=== PATIENT | female | born 1955 | race Caucasian/White ===

== ENCOUNTER 2017-07-08 02:50 | Inpatient (IN) | payer MEDICARE, MEDICAID ==
--- NOTE | 2017-07-08 03:19 | ED Physician Chart ---
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 Pain, A/N/V/D/C, fever, chills, or urinary s/s Allergies:: Allergies Allergy/AdvReac Type Severity Reaction Status Date / Time No Known Allergies Allergy Verified 07/08/17 03:09 Historian:: Patient, EMS Review:: Nurse's Note Reviewed, Old Chart Reviewed, EMS run form Reviewed ED Review of Systems - Review of Systems General/Constitutional: No fever, No chills, No weight loss, No weakness, No diaphoresis, No edema, No loss of appetite Skin: No skin lesions, No rash, No bruising Head: No headache, No light-headedness Eyes: No loss of vision, No pain, No diplopia ENT: No earache, No nasal drainage, No sore throat, No tinnitus Neck: No neck pain, No swelling, No thyromegaly, No stiffness, No mass noted Cardio Vascular: No chest pain, No palpitations, No PND, No orthopnea, No edema Pulmonary: No SOB, No cough, No sputum, No wheezing GI: No nausea, No vomiting, No diarrhea, No pain, No melena, No hematochezia, No constipation, No hematemesis G/U: No dysuria, No frequency, No hematuria, No nacturia 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: No vaginal discharge, No abnormal vaginal bleed, No contraction Musculoskeletal: Bone or joint pain, Back pain, No muscle pain Endocrine: No polyuria, No polydipsia Psychiatric: Prior psych history, Depression, Anxiety, No suicidal ideation, No homicidal ideation, Auditory hallucination, No visual hallucination Hematopoietic: No bruising, No lymphadenopathy Allergic/Immuno: No urticaria, No angioedema Neurological: No syncope, No focal symptoms, No weakness, No paresthesia, No headache, No seizure, No dizziness, Confusion, No vertigo ED Past Medical History - Past Medical History Obtainable: Yes Past Medical History: HTN, DM, CAD, Dyslipidemia, ESRD, Thyroid disorder, Arthritis, Dementia Family History: Diabetes Melitus, HTN Social History: Non Smoker, No Alcohol, No Drug Use, Single, Care Facility Surgical History: other (Shunt Left Upper Arm) Psychiatricy History: Depression, Schizophrenia, Bipolar, Dementia Medication: Reviewed Family Medical History - Family Member Mother History Unknown: Yes ED Physical Exam - Physical Examination General/Constitutional: Awake, Well-developed, well-nourished, Alert, No distress, GCS 15, Non-toxic appearing, Ambulatory Head: Atraumatic Eyes: Lids, conjuctiva normal, PERRL, EOMI Skin: Nl inspection, No rash, No skin lesions, No ecchymosis, Well hydrated, No lymphadenopathy ENMT: External ears, nose nl, TM canals nl, Nasal exam nl, Lips, teeth, gums nl , Oropharynx nl, Tonsils nl Neck: Nontender, Full ROM w/o pain, No JVD, No nuchal rigidity, No bruit, No mass, No stridor Respiratory: Nl effort/Exclusion, Clear to Auscultation, No Wheeze/Rhonchi/Rales Cardio Vascular: RRR, No murmur, gallop, rubs, NL S1 S2, Carotid/Femoral/Distal pulses equal bilaterally GI: No tenderness/rebounding/guarding, No organomegaly, No hernia, Normal BS's, Nondistended, No mass/bruits, No McBurney tenderness : No CVA tenderness Extremities: No tenderness or effusion, Full ROM, normal strength in all extremities, No edema, Normal digits & nails Neuro/Psych: Alert/oriented, DTR's symmetric, Normal sensory exam, Normal motor strength, Judgement/insight normal, Mood normal, Normal gait, No focal deficits Other Neuro/Psych comments:: disoriented and confused; + Hallucinations; Mood/Affect: Labile; no SIs Misc: Normal back, No paraspinal tenderness ED Labs/Radiology/EKG Results - Lab Results Comments:: + anemia; + Renal Failure; + Elevated BNP; BUN; Cr; - EKG Interpretations EKG Time:: 03:31 Rate & Rhythm: 79; NSR Comments:: non-specific st-t changes ED Septic Shock - . Is Septic Shock (SBP<90, OR Lactate>4 mmol\L) present?: No ED Reassessment (Disposition) - Reassessment Reassessment Condition:: Improved - Diagnosis Diagnosis:: Anemia; Renal Failure; CHF; Hallucinations; Psychosis; Medical Clearance; ESRD; Schizophrenia; Bipolar Disorder - Aftercare/Follow up Instructions Aftercare/Follow-Up Instructions:: Counseled pt regarding lab results/diagnosis & need follow up, Counseled pt & family regarding lab results/diagnosis & need follow up - Patient Disposition Discharge/Transfer:: Acute Care w/in this hosp Accepting Physician:: Dr. Shrestha Time Called:: 0430 Time Responded:: 04:30 Admitted to:: [facility] Spoke to:: Dr. Shrestha Admitting Medical Physician:: Dr. Shrestha Admitting Psych Physician:: Dr. Bai Condition at Disposition:: Stable, Improved
[2017-07-08 04:19] LABS: ACETAMINOPHEN < 10.0 ug/mL (10.0-30.0); ALB/GLOB RATIO 1.6 (1.0-1.8); ALKALINE PHOSPHATASE 147 U/L (34-104); ANION GAP 10.9 (7.0-16.0); BILIRUBIN,TOTAL 0.4 mg/dL (0.3-1.0); BUN - UREA NITROGEN 59 mg/dL (7-25); CALCIUM SERUM 9.5 mg/dL (8.6-10.3); CARBON DIOXIDE 28.6 mEq/L (21.0-31.0); CHLORIDE 102 mEq/L (98-107); CHOLESTEROL 109 mg/dL (<200); CREATININE KINASE 649 U/L (30-223); GFR AFRICAN-AMERICAN 11.5 ml/min (>90); GFR NON AFRICAN-AMERICAN 9.5 ml/min; GLUCOSE 217 mg/dL (70-105); HDL -HIGH DENSITY LIPOPROTEIN 49 mg/dL (23-92); POTASSIUM SERUM 4.5 mEq/L (3.5-5.1); SGOT 28 U/L (13-39); SGPT/ALT 12 U/L (7-52); SODIUM SERUM 137 mEq/L (136-145); TOTAL PROTEIN,SERUM 6.5 gm/dL (6.0-8.3); TRIGLYCERIDES 122 mg/dL (<150)
[2017-07-08 04:20] LABS: INR 0.97 (0.5-1.4); PROTHROMBIN TIME (TEST) 10.1 SECONDS (9.5-11.5)
[2017-07-08 04:36] LABS: % BASOPHILS 0.9 % (0.0-2.0); % EOSINOPHILS 1.1 % (0.0-5.0); % LYMPHOCYTES 16.8 % (20.0-50.0); % MONOCYTES 4.2 % (2.0-10.0); BASOPHILE ABSOLUTE 0.1 Th/cumm (0-0.2); EOSINOPHILE ABSOLUTE 0.1 Th/cmm (0.1-0.4); HEMATOCRIT 35.5 % (41.0-60); HEMOGLOBIN 11.9 gm/dL (12-16); LYMPHOCYTE ABSOLUTE 1.4 Th/cmm (1.5-3.0); MEAN CELL VOLUME 94.2 fl (81-100); MEAN CORPUSCULAR HEMOGLOBIN 31.5 pg (27.0-31.0); MEAN CORPUSCULAR HGB CONC 33.4 pg (28.0-36.0); MEAN PLATELET VOLUME 8.5 fl; MONOCYTE ABSOLUTE 0.4 Th/cmm (0.3-1.0); NEUTROPHILE ABSOLUTE 6.6 Th/cmm (1.8-8.0); PLATELET COUNT 200 Th/cmm (150-400); RED BLOOD COUNT 3.77 Mil/cmm (3.80-5.10); RED CELL DISTRIBUTION WIDTH 14.2 % (11.5-20.0); WHITE BLOOD COUNT 8.6 Th/cmm (4.8-10.8)
[2017-07-08] MEDS ORDERED: NITROGLYCERIN OINT 2% 1 INCH PACKET TP STA (06:50)
[2017-07-08] MEDS ORDERED: NITROGLYCERIN OINT 2% 1 INCH PACKET TP ONE (07:00)
[2017-07-08] MEDS ORDERED: Hydrocodone/APAP 5mg/325mg Tab PO PRN (10:47)
[2017-07-08] MEDS ORDERED: Non-Formulary Item 1 EA (Alprazolam [Xanax*] 1 MG) PO SCH (11:00)
[2017-07-08 11:27] LABS: CREATININE - SERUM 4.9 mg/dL (0.6-1.2)
[2017-07-08 12:08] LABS: SALICYLATES (ASPIRIN) < 25.0 mg/L (30.0-100.0)
[2017-07-08] MEDS ORDERED: [UNRECOGNIZED DRUG - OTHER] LEFT EYE SCH (14:00)
[2017-07-08] MEDS ORDERED: POLYMYXIN B SULF LEFT EYE SCH (14:00)
[2017-07-08] MEDS ORDERED: AMINO ACIDS PO SCH (14:00)
[2017-07-08] MEDS ORDERED: TRIMETHOPRIM LEFT EYE SCH (14:00)
[2017-07-08] MEDS ORDERED: FIBER PO SCH (14:00)
[2017-07-08] MEDS ORDERED: PROTEIN HYDR PO SCH (14:00)
[2017-07-08] MEDS ORDERED: [UNRECOGNIZED DRUG - OTHER] PO SCH (14:00)
[2017-07-08] MEDS: Escitalopram Oxalate 5 mg Tab PO SCH (14:34)
[2017-07-08] MEDS: Vitamin B Complex w/Vitamin C Tab PO SCH (14:35)
[2017-07-08] MEDS: NIFEdipine 30 mg ER Tab PO SCH (14:35)
[2017-07-08] MEDS: FERRIC CITRATE PO SCH ×2 (14:36→18:47)
[2017-07-08] MEDS: Non-Formulary Item 1 EA (Brinzolamide/Brimonidine Tart [Simbrinza 1%-0.2% Eye Drops] 1 DRO EACH EYE SCH ×2 (14:36→18:47)
[2017-07-08] MEDS: Prednisolone 1% Ophth Susp 5 mL Bottle LEFT EYE SCH ×2 (14:36→18:47)
[2017-07-08 15:57] LABS: A1C % 7.3 % (4.0-6.0)
--- NOTE | 2017-07-08 16:34 | Psychosocial Evaluation ---
DATE OF SERVICE: 07/08/2017 HISTORY OF PRESENT ILLNESS: A 62-year-old female with history of schizophrenia, also dementia per the daughter, daughter at bedside. Sandrine notes that she had been at halfway, , decompensated. The patient believes that she is being fed cocaine and methamphetamines and the facility is making her psychotic. The patient is bizarre, disoriented, making nonsensical statements, believes that she is in the hospital because she is going to be euthanized. PAST MEDICAL HISTORY: Schizophrenia, psychiatric hospitalizations in the past. FAMILY HISTORY: Noncontributory. SOCIAL HISTORY: Three daughters, not , born in [place], living at a halfway. MEDICATIONS: Noted including Seroquel. MENTAL STATUS EXAMINATION: Stated age. Fair eye contact. Speech within normal limits, bizarre, making nonsensical statements, disorganized, disoriented, delusional, psychotic. No SI, no HI, but believes she is here to be euthanized. Poor insight and judgment. PROVISIONAL DIAGNOSES: Schizophrenia, also dementia. UNDER MEDICAL: Please see full H and P. JUSTIFICATION FOR HOSPITALIZATION: The patient is hemodialysis dependent. Daughter is not quite sure what her dosages of Seroquel she was on, but not to nighttime dose. RECOMMENDATIONS AND PLAN: The patient is psychotic, delusional. We will restart Seroquel at nighttime to try to stabilize. JOB# [id number]
--- NOTE | 2017-07-08 16:44 | Diagnostic Imaging Report ---
CHEST X-RAY: AP view INDICATION: Hypertension COMPARISON: None FINDINGS: Increased interstitial lung markings are seen particularly of the lung bases. There is nonspecific prominence of the anterior junction line. Cardiomegaly is noted with atherosclerosis. No pleural effusions. Degenerative changes of the spine are noted. IMPRESSION: Increased interstitial lung markings. Atelectasis versus infiltrate of the lung bases cannot be excluded. There may be a marginal degree of congestion. Cardiomegaly and atherosclerotic vascular disease.
[2017-07-08] MEDS: INSULIN ASPART SLIDING SCALE 100 UNITS/ML UNIT SUBQ SCH (18:46)
--- NOTE | 2017-07-08 18:55 | Consultation ---
DATE OF CONSULTATION: 07/08/2017 REASON FOR CONSULTATION: Electrolyte imbalance and fluid management. HISTORY OF PRESENT ILLNESS: This is a 62-year-old female with past medical history of end-stage renal disease on hemodialysis, who came in because of acute decompensation of psychotic features. One week prior to admission, the patient's psychiatrist decreased her dose of Seroquel from twice a day to just once a day. A few hours prior to admission, the patient suddenly manifested psychosis. She became confused and started mumbling, with visual hallucinations. Thus, she was brought to the Emergency Room. The patient has history of end-stage renal disease, on hemodialysis. Her schedule is on Tuesdays, , and Saturdays. She has no headaches, fever/chills, dizziness, syncopal episode. No seizure activity. PAST MEDICAL HISTORY: 1. End-stage renal disease, on hemodialysis. 2. Essential hypertension. 3. Type 2 diabetes mellitus. 4. Dementia with behavioral disturbance. 5. DJD. 6. Hypothyroidism. 7. Coronary artery disease. 8. Schizophrenia. 9. Bipolar disorder. 10. Gout. 11. Dyslipidemia. PAST SURGICAL HISTORY: Status post creation of left AV fistula. SOCIAL AND FAMILY HISTORY: I was not able to obtain from the patient because she is awake, but just mumbling and unable to carry a conversation. REVIEW OF SYSTEMS: Again, I was not able to decipher directly from the patient because of her current psychotic features. PHYSICAL EXAMINATION: GENERAL: The patient is awake, but cooperative. VITAL SIGNS: Blood pressure is 170/77, pulse 84, temperature 98 degrees. SKIN: Good turgor, warm, no rash, no jaundice appreciated. HEENT: Head normocephalic, atraumatic. Eyes: Extraocular muscles intact. Pupils equal, round, reactive to light and accommodates. Anicteric sclerae. [place] conjunctivae. Nose, midline nasal septum. Mouth, moist mucosa with adequate dentition. NECK: Supple, no adenopathy, no thyromegaly, no bruits. Trachea palpated in the midline. CHEST AND CVS: S1, S2. No rub, murmur, or gallop appreciated. Point of maximal impulse fifth intercostal space, left midclavicular line. No abdominal or femoral bruits appreciated. LUNGS: Equal expansion. No use of accessory muscles or supraclavicular retractions. Decreased breath sounds, but clear to auscultation without any wheezes. BREASTS: Pendulous, symmetrical without any discharge. ABDOMEN: Obese, soft, positive for bowel sounds. No bruits either diastolic or systolic. RECTAL: The patient refused. GENITOURINARY: Normal appearing female genitalia. MUSCULOSKELETAL: No effusions present in her joints with adequate range of motion. EXTREMITIES: No evidence of any edema, cyanosis nor clubbing with palpable femoral, but unable to fully appreciate popliteal and dorsalis pedis pulses. She has a very good bruit and thrill on her left AV fistula. NEUROLOGIC: The patient is alert, verbal, motor is 5/5. Cranial nerves 2-12 intact. Sensory intact. LABORATORY DATA: Revealed white count 8.6, hemoglobin 11.9, hematocrit 35.5, platelets 200, polys 77%. PT is 10.1. INR is 0.97. Sodium 137, potassium 4.5, chloride 102, bicarbonate 28, BUN 59, creatinine 4.9, glucose 217, calcium 9.5. Alkaline phosphatase is 147. BNP is 383. Albumin is 4. IMPRESSION: 1. End-stage renal disease, on hemodialysis. 2. Acute decompensation of psychosis secondary to decrease in dosing of psychotropic meds. 3. Essential hypertension with chronic kidney disease. 4. Type 2 diabetes mellitus with chronic kidney disease. 5. Dementia with behavioral disturbance. 6. Degenerative joint disease. 7. Hypothyroidism. 8. Coronary artery disease. 9. Schizophrenia. 10. Bipolar disorder. 11. Gouty arthritis. 12. Dyslipidemia. PLAN: 1. Hemodialysis today. 2. Consider psych consult to readjust psychotropic meds. JOB# [id number]
[2017-07-08] MEDS ORDERED: Pneumococcal Vaccine 0.5 mL Vial IM ONE (20:12)
[2017-07-08] MEDS ORDERED: Influenza Vaccine 0.5 mL Syr IM ONE (20:12)
[2017-07-08] MEDS ORDERED: Non-Formulary Item 1 EA (Atorvastatin Calcium [Lipitor] 40 MG) PO SCH (21:00)
[2017-07-09] MEDS ORDERED: Albumin 25% 25gm/100mL 25 GM/100 ML BTL IV ONE
[2017-07-09 05:28] LABS: % BASOPHILS 0.9 % (0.0-2.0); % EOSINOPHILS 3.4 % (0.0-5.0); % LYMPHOCYTES 25.7 % (20.0-50.0); % MONOCYTES 8.4 % (2.0-10.0); % NEUTROPHILS 61.6 % (40.0-80.0); BASOPHILE ABSOLUTE 0.1 Th/cumm (0-0.2); EOSINOPHILE ABSOLUTE 0.3 Th/cmm (0.1-0.4); HEMATOCRIT 34.8 % (41.0-60); HEMOGLOBIN 11.4 gm/dL (12-16); MEAN CORPUSCULAR HEMOGLOBIN 30.7 pg (27.0-31.0); MEAN CORPUSCULAR HGB CONC 32.7 pg (28.0-36.0); MEAN PLATELET VOLUME 7.6 fl; MONOCYTE ABSOLUTE 0.7 Th/cmm (0.3-1.0); NEUTROPHILE ABSOLUTE 4.8 Th/cmm (1.8-8.0); PLATELET COUNT 218 Th/cmm (150-400); RED CELL DISTRIBUTION WIDTH 14.1 % (11.5-20.0); WHITE BLOOD COUNT 7.9 Th/cmm (4.8-10.8)
[2017-07-09 05:55] LABS: ANION GAP 8.9 (7.0-16.0); CALCIUM SERUM 8.9 mg/dL (8.6-10.3); CREATININE - SERUM 3.1 mg/dL (0.6-1.2); GFR AFRICAN-AMERICAN 19.5 ml/min (>90); GFR NON AFRICAN-AMERICAN 16.1 ml/min; MAGNESIUM 2.1 mg/dL (1.9-2.7); PHOSPHOROUS 3.3 mg/dL (2.5-5.0); POTASSIUM SERUM 3.9 mEq/L (3.5-5.1)
[2017-07-09] MEDS ORDERED: LEVOTHYROXINE 0.15 MG PO SCH (07:30)
[2017-07-09] MEDS: Vitamin B Complex w/Vitamin C Tab PO SCH (08:37)
[2017-07-09] MEDS: Escitalopram Oxalate 5 mg Tab PO SCH (08:37)
[2017-07-09] MEDS: NIFEdipine 30 mg ER Tab PO SCH ×3 (08:37→18:08)
[2017-07-09] MEDS: INSULIN ASPART SLIDING SCALE 100 UNITS/ML UNIT SUBQ SCH ×2 (08:39→18:06)
[2017-07-09] MEDS: Insulin Detemir 100 units/mL 10mL Vial SUBQ SCH (08:39)
[2017-07-09] MEDS: Levothyroxine 0.15 Mg Tab PO SCH (08:40)
[2017-07-09] MEDS: Prednisolone 1% Ophth Susp 5 mL Bottle LEFT EYE SCH ×2 (08:40→18:08)
[2017-07-09] MEDS ORDERED: VTE Chemical Prophylaxis Screen/Admission MC PRN (15:46)
--- NOTE | 2017-07-09 17:17 | General Progress Note ---
Subjective - Review of Systems Service Date: 07/09/17 Subjective: alert, but still has confusion Objective - Results Result Diagrams: 07/09/17 05:06 07/09/17 05:06 Recent Labs: Laboratory Last Values WBC 7.9 Th/cmm (4.8-10.8) 07/09/17 05:06 RBC 3.70 Mil/cmm (3.80-5.10) L 07/09/17 05:06 Hgb 11.4 gm/dL (12-16) L 07/09/17 05:06 Hct 34.8 % (41.0-60) L 07/09/17 05:06 MCV 94.0 fl (81-100) 07/09/17 05:06 MCH 30.7 pg (27.0-31.0) 07/09/17 05:06 MCHC Differential 32.7 pg (28.0-36.0) 07/09/17 05:06 RDW 14.1 % (11.5-20.0) 07/09/17 05:06 Plt Count 218 Th/cmm (150-400) 07/09/17 05:06 MPV 7.6 fl 07/09/17 05:06 Neutrophils % 61.6 % (40.0-80.0) 07/09/17 05:06 Lymphocytes % 25.7 % (20.0-50.0) 07/09/17 05:06 Monocytes % 8.4 % (2.0-10.0) 07/09/17 05:06 Eosinophils % 3.4 % (0.0-5.0) 07/09/17 05:06 Basophils % 0.9 % (0.0-2.0) 07/09/17 05:06 PT 10.1 SECONDS (9.5-11.5) 07/08/17 03:45 INR 0.97 (0.5-1.4) 07/08/17 03:45 Sodium 135 mEq/L (136-145) L 07/09/17 05:06 Potassium 3.9 mEq/L (3.5-5.1) 07/09/17 05:06 Chloride 98 mEq/L (98-107) 07/09/17 05:06 Carbon Dioxide 32.0 mEq/L (21.0-31.0) H 07/09/17 05:06 Anion Gap 8.9 (7.0-16.0) 07/09/17 05:06 BUN 26 mg/dL (7-25) H 07/09/17 05:06 Creatinine 3.1 mg/dL (0.6-1.2) H 07/09/17 05:06 Est GFR ( Amer) 19.5 ml/min (>90) 07/09/17 05:06 Est GFR (Non-Af Amer) 16.1 ml/min 07/09/17 05:06 BUN/Creatinine Ratio 8.4 07/09/17 05:06 Glucose 200 mg/dL (70-105) H 07/09/17 05:06 POC Glucose 114 MG/DL (70 - 105) H 07/09/17 16:58 Hemoglobin A1c % 7.3 % (4.0-6.0) H 07/08/17 03:45 Calcium 8.9 mg/dL (8.6-10.3) 07/09/17 05:06 Phosphorus 3.3 mg/dL (2.5-5.0) 07/09/17 05:06 Magnesium 2.1 mg/dL (1.9-2.7) 07/09/17 05:06 Total Bilirubin 0.4 mg/dL (0.3-1.0) 07/08/17 03:45 AST 28 U/L (13-39) 07/08/17 03:45 ALT 12 U/L (7-52) 07/08/17 03:45 Alkaline Phosphatase 147 U/L (34-104) H 07/08/17 03:45 Ammonia 45 umol/L (16-53) 07/08/17 03:45 Creatine Kinase 649 U/L (30-223) H 07/08/17 03:45 CK-MB (CK-2) 11.8 ng/mL (0.6-6.3) H 07/08/17 03:45 Troponin I 0.03 ng/mL (0.01-0.05) 07/08/17 03:45 B-Natriuretic Peptide 383.0 pg/mL (5.0-100.0) H 07/08/17 03:45 Total Protein 6.5 gm/dL (6.0-8.3) 07/08/17 03:45 Albumin 4.0 gm/dL (3.7-5.3) 07/08/17 03:45 Globulin 2.5 gm/dL 07/08/17 03:45 Albumin/Globulin Ratio 1.6 (1.0-1.8) 07/08/17 03:45 Triglycerides 122 mg/dL (<150) 07/08/17 03:45 Cholesterol 109 mg/dL (<200) 07/08/17 03:45 LDL Cholesterol Direct 37 mg/dL (75-193) L 07/08/17 03:45 HDL Cholesterol 49 mg/dL (23-92) 07/08/17 03:45 TSH 3.27 uIU/ml (0.34-5.60) 07/08/17 03:45 Salicylates < 25.0 mg/L (30.0-100.0) L 07/08/17 03:45 Acetaminophen < 10.0 ug/mL (10.0-30.0) L 07/08/17 03:45 Ethyl Alcohol < 10 mg/dL (0-10) 07/08/17 03:45 RPR NONREACTIVE (NONREACTIVE) 07/08/17 03:45 - Physical Exam Vitals and I&O: Vital Signs Temp 97.2 F 07/09/17 12:30 Pulse 68 07/09/17 12:30 Resp 18 07/09/17 16:00 BP 150/73 07/09/17 12:30 Pulse Ox 95 07/09/17 12:30 Intake & Output 07/08/17 07/09/17 07/09/17 18:59 06:59 18:59 Intake Total 480 Balance 480 Weight (lbs) 86.636 kg 86.863 kg 86.636 kg Intake: Oral 480 Other: # Voids 2 2 2 Active Medications: Current Medications Acetaminophen (Tylenol) 650 mg PO Q4HR PRN PRN Reason: Pain (Mild) Stop: 09/06/17 10:46 Acetaminophen/Hydrocodone Bitart ([place] 5mg/325mg) 1 tab PO Q6H PRN PRN Reason: Pain (Severe) Stop: 09/06/17 10:46 Allopurinol (Zyloprim) 100 mg PO TID SALOMÓN Stop: 09/06/17 13:59 Last Admin: 07/09/17 14:25 Dose: 100 mg Alprazolam (Xanax) 1 mg PO DAILY SALOM[facility]N Stop: 09/07/17 08:59 Last Admin: 07/09/17 08:36 Dose: 1 mg Aspirin (Ecotrin) 81 mg PO DAILY SALOM[facility]N Stop: 09/06/17 10:59 Last Admin: 07/09/17 08:37 Dose: 81 mg Atorvastatin Calcium (Lipitor) 40 mg PO HS SALOMÓN Stop: 09/06/17 20:59 Last Admin: 07/08/17 21:01 Dose: 40 mg Brimonidine Tartrate (Alphagan 0.2% [facility]) 1 drop EACH EYE Q12HR SALOMÓN Stop: 09/07/17 08:59 Last Admin: 07/09/17 10:52 Dose: 1 drop Docusate Sodium (Colace) 100 mg PO DAILY SALOMÓN Stop: 09/06/17 10:59 Last Admin: 07/09/17 08:38 Dose: 100 mg Dorzolamide HCl (Trusopt 2% [facility]) 1 drop EACH EYE Q12H [facility]OM[facility] Stop: 09/07/17 08:59 Last Admin: 07/09/17 10:52 Dose: 1 drop Escitalopram Oxalate (Lexapro) 5 mg PO DAILY [facility] PRN Reason: Protocol Stop: 09/06/17 10:59 Last Admin: 07/09/17 08:37 Dose: 5 mg Folic Acid (Folate) 1 mg PO DAILY SALOMÓN Stop: 09/06/17 10:59 Last Admin: 07/09/17 08:38 Dose: 1 mg Heparin Sodium (Porcine) (Heparin) 5,000 units SUBQ Q12H [facility]OM[facility] Stop: 09/07/17 20:59 Insulin Aspart (Novolog Insulin Sliding Scale) 0 units SUBQ BIDAC [facility] PRN Reason: Protocol Stop: 09/06/17 16:29 Last Admin: 07/09/17 08:39 Dose: 4 units Insulin Detemir (Levemir Insulin) 24 units SUBQ QAM [facility] PRN Reason: Protocol Stop: 09/07/17 08:59 Last Admin: 07/09/17 08:39 Dose: 24 units Levothyroxine Sodium (Synthroid) 0.15 mg PO DAILY [facility] Stop: 09/07/17 08:59 Last Admin: 07/09/17 08:40 Dose: Not Given Metoprolol Tartrate (Lopressor) 50 mg PO BID [facility] Stop: 09/06/17 10:59 Last Admin: 07/09/17 08:38 Dose: 50 mg Miscellaneous (Vte Chemical Prophylaxis Screen/ Admission) 1 ea [facility] PRN PRN PRN Reason: PROTOCOL Stop: 09/07/17 15:45 Nifedipine (Procardia Xl) 30 mg PO BID [facility]OM[facility] Stop: 09/07/17 08:59 Last Admin: 07/09/17 08:40 Dose: 30 mg Prednisolone Acetate (Pred Forte 1% Ophth Susp) 1 drop LEFT EYE BID [facility]OM[facility] Stop: 09/06/17 10:59 Last Admin: 07/09/17 08:40 Dose: 1 drop Quetiapine Fumarate (Seroquel) 12.5 mg PO DAILY [facility] PRN Reason: Protocol Stop: 09/06/17 10:59 Last Admin: 07/09/17 08:38 Dose: 12.5 mg Quetiapine Fumarate (Seroquel) 37.5 mg PO HS [facility] PRN Reason: Protocol Stop: 09/07/17 11:10 Sevelamer Carbonate (Renvela) 1,600 mg PO TID [facility] Stop: 09/06/17 13:59 Last Admin: 07/09/17 14:25 Dose: 1,600 mg Sodium Bicarbonate (Sodium Bicarbonate) 650 mg PO BID [facility] PRN Reason: Protocol Stop: 09/06/17 10:59 Last Admin: 07/09/17 08:36 Dose: 650 mg Vitamin B Complex/Vit C/Folic Acid (Vitamin B Complex W/Vitamin C) 1 tab PO DAILY [facility] Stop: 09/06/17 10:59 Last Admin: 07/09/17 08:37 Dose: 1 tab General: No acute distress, Other (awake) HEENT: Atraumatic, EOMI Neck: Supple, +2 carotid pulse wo bruit Cardiovascular: Regular rate, Normal S1, Normal S2 Lungs: Clear to auscultation Abdomen: Bowel sounds, Soft Extremities: no Edema Neurological: Sensation intact Skin: no Rash Psych/Mental Status: Other (psychosis) Assessment/Plan - Assessment Assessment: ESRD on HD Acute decomp of psych Ess Htn Type 2 DM DJD Hypothyroid CAD - Plan Plan: Lab - Result Diagrams 07/09/17 05:06 07/09/17 05:06 Current Medications Acetaminophen (Tylenol) 650 mg PO Q4HR PRN PRN Reason: Pain (Mild) Stop: 09/06/17 10:46 Acetaminophen/Hydrocodone Bitart ([place] 5mg/325mg) 1 tab PO Q6H PRN PRN Reason: Pain (Severe) Stop: 09/06/17 10:46 Allopurinol (Zyloprim) 100 mg PO TID [facility] Stop: 09/06/17 13:59 Last Admin: 07/09/17 14:25 Dose: 100 mg Alprazolam (Xanax) 1 mg PO DAILY [facility] Stop: 09/07/17 08:59 Last Admin: 07/09/17 08:36 Dose: 1 mg Aspirin (Ecotrin) 81 mg PO DAILY [facility] Stop: 09/06/17 10:59 Last Admin: 07/09/17 08:37 Dose: 81 mg Atorvastatin Calcium (Lipitor) 40 mg PO HS [facility] Stop: 09/06/17 20:59 Last Admin: 07/08/17 21:01 Dose: 40 mg Brimonidine Tartrate (Alphagan 0.2% Ophth Soln) 1 drop EACH EYE Q12HR [facility] Stop: 09/07/17 08:59 Last Admin: 07/09/17 10:52 Dose: 1 drop Docusate Sodium (Colace) 100 mg PO DAILY [facility] Stop: 09/06/17 10:59 Last Admin: 07/09/17 08:38 Dose: 100 mg Dorzolamide HCl (Trusopt 2% Ophth Soln) 1 drop EACH EYE Q12H [facility] Stop: 09/07/17 08:59 Last Admin: 07/09/17 10:52 Dose: 1 drop Escitalopram Oxalate (Lexapro) 5 mg PO DAILY [facility] PRN Reason: Protocol Stop: 09/06/17 10:59 Last Admin: 07/09/17 08:37 Dose: 5 mg Folic Acid (Folate) 1 mg PO DAILY [facility] Stop: 09/06/17 10:59 Last Admin: 07/09/17 08:38 Dose: 1 mg Heparin Sodium (Porcine) (Heparin) 5,000 units SUBQ Q12H [facility] Stop: 09/07/17 20:59 Insulin Aspart (Novolog Insulin Sliding Scale) 0 units SUBQ BIDAC [facility] PRN Reason: Protocol Stop: 09/06/17 16:29 Last Admin: 07/09/17 08:39 Dose: 4 units Insulin Detemir (Levemir Insulin) 24 units SUBQ QAM [facility] PRN Reason: Protocol Stop: 09/07/17 08:59 Last Admin: 07/09/17 08:39 Dose: 24 units Levothyroxine Sodium (Synthroid) 0.15 mg PO DAILY [facility] Stop: 09/07/17 08:59 Last Admin: 07/09/17 08:40 Dose: Not Given Metoprolol Tartrate (Lopressor) 50 mg PO BID [facility] Stop: 09/06/17 10:59 Last Admin: 07/09/17 08:38 Dose: 50 mg Miscellaneous (Vte Chemical Prophylaxis Screen/ Admission) 1 ea [facility] PRN PRN PRN Reason: PROTOCOL Stop: 09/07/17 15:45 Nifedipine (Procardia Xl) 30 mg PO BID [facility] Stop: 09/07/17 08:59 Last Admin: 07/09/17 08:40 Dose: 30 mg Prednisolone Acetate (Pred Forte 1% Ophth Susp) 1 drop LEFT EYE BID [facility] Stop: 09/06/17 10:59 Last Admin: 07/09/17 08:40 Dose: 1 drop Quetiapine Fumarate (Seroquel) 12.5 mg PO DAILY [facility] PRN Reason: Protocol Stop: 09/06/17 10:59 Last Admin: 07/09/17 08:38 Dose: 12.5 mg Quetiapine Fumarate (Seroquel) 37.5 mg PO HS [facility] PRN Reason: Protocol Stop: 09/07/17 11:10 Sevelamer Carbonate (Renvela) 1,600 mg PO TID [facility] Stop: 09/06/17 13:59 Last Admin: 07/09/17 14:25 Dose: 1,600 mg Sodium Bicarbonate (Sodium Bicarbonate) 650 mg PO BID [facility] PRN Reason: Protocol Stop: 09/06/17 10:59 Last Admin: 07/09/17 08:36 Dose: 650 mg Vitamin B Complex/Vit C/Folic Acid (Vitamin B Complex W/Vitamin C) 1 tab PO DAILY [facility] Stop: 09/06/17 10:59 Last Admin: 07/09/17 08:37 Dose: 1 tab Lab - Result Diagrams 07/09/17 05:06 07/09/17 05:06 schedule for dialysis in am adjust psych meds
--- NOTE | 2017-07-09 19:37 | Consultation ---
DATE OF CONSULTATION: 07/09/2017 A 63-year-old female with history of schizophrenia, confirmed by daughter. Also, with dementia per the daughter. The patient is calmer today. She was claiming she was being forced fed cocaine and methamphetamine at her intermediate facility. This was after a gradual dose reduction of Seroquel. She presented as bizarre, disoriented, believing that she was going to be euthanized here. On [id number], the patient is answering the questions on all of these thoughts and delusions. When I asked her if she feels if the facility has been trying to poison her or give her cocaine, she states "well, I don't know, maybe." The patient seems to be quite sensitive to antipsychotic medications in regards to needing at least a small dose of Seroquel to tamper down her mood given her history of mental illness per the daughter. The patient noting that she is in better spirits. She slept well, answering questions more appropriately and significantly calmer. MENTAL STATUS EXAMINATION: Stated age. Sleeping, but arousable better oriented. Mood "better." Affect somewhat broader. Thought processes were more engaged, no SI, no HI. delusions, better insight and judgment. PROVISIONAL DIAGNOSIS: Schizophrenia, also mood, unspecified. MEDICAL: Please see full H and P. RECOMMENDATIONS AND PLAN: The patient with ongoing psychotic symptoms. We will increase Seroquel. The patient does seem to be making an improvement. JOB# [id number]
[2017-07-10 08:07] LABS: % BASOPHILS 0.7 % (0.0-2.0); % EOSINOPHILS 6.8 % (0.0-5.0); % LYMPHOCYTES 33.1 % (20.0-50.0); % MONOCYTES 10.8 % (2.0-10.0); % NEUTROPHILS 48.6 % (40.0-80.0); BASOPHILE ABSOLUTE 0.1 Th/cumm (0-0.2); EOSINOPHILE ABSOLUTE 0.6 Th/cmm (0.1-0.4); HEMATOCRIT 34.8 % (41.0-60); HEMOGLOBIN 11.7 gm/dL (12-16); LYMPHOCYTE ABSOLUTE 2.8 Th/cmm (1.5-3.0); MEAN CELL VOLUME 94.1 fl (81-100); MEAN CORPUSCULAR HEMOGLOBIN 31.8 pg (27.0-31.0); MEAN CORPUSCULAR HGB CONC 33.7 pg (28.0-36.0); MEAN PLATELET VOLUME 7.6 fl; MONOCYTE ABSOLUTE 0.9 Th/cmm (0.3-1.0); NEUTROPHILE ABSOLUTE 4.2 Th/cmm (1.8-8.0); PLATELET COUNT 231 Th/cmm (150-400); WHITE BLOOD COUNT 8.6 Th/cmm (4.8-10.8)
[2017-07-10 08:25] LABS: ANION GAP 9.1 (7.0-16.0); CALCIUM SERUM 8.5 mg/dL (8.6-10.3); CARBON DIOXIDE 29.1 mEq/L (21.0-31.0); GFR AFRICAN-AMERICAN 11.7 ml/min (>90); GFR NON AFRICAN-AMERICAN 9.7 ml/min; MAGNESIUM 2.4 mg/dL (1.9-2.7); POTASSIUM SERUM 4.2 mEq/L (3.5-5.1); URIC ACID 3.3 mg/dL (2.3-6.6)
[2017-07-10 08:31] LABS: CREATININE - SERUM 4.8 mg/dL (0.6-1.2)
--- NOTE | 2017-07-10 09:06 | Diagnostic Imaging Report ---
CHEST X-RAY: AP view INDICATION: Pneumonia COMPARISON: 07/08/2017 FINDINGS: Increase bibasal lung markings are noted. There is improved lung aeration. No focal consolidation or effusions. Cardiomegaly is noted. IMPRESSION: Increased bibasilar lung markings which may be due to atelectasis versus less likely infiltrate. Correlation should be made with clinical findings. Improved lung aeration.
[2017-07-10] MEDS: Prednisolone 1% Ophth Susp 5 mL Bottle LEFT EYE SCH ×2 (09:37→16:59)
[2017-07-10] MEDS: Vitamin B Complex w/Vitamin C Tab PO SCH (09:39)
[2017-07-10] MEDS: Escitalopram Oxalate 5 mg Tab PO SCH (09:39)
[2017-07-10] MEDS: INSULIN ASPART SLIDING SCALE 100 UNITS/ML UNIT SUBQ SCH ×2 (09:43→18:09)
[2017-07-10] MEDS: Insulin Detemir 100 units/mL 10mL Vial SUBQ SCH (09:44)
[2017-07-10] MEDS: NIFEdipine 30 mg ER Tab PO SCH ×2 (10:01→16:58)
[2017-07-10] MEDS: Levothyroxine 0.15 Mg Tab PO SCH (10:02)
[2017-07-11 06:13] LABS: % BASOPHILS 0.8 % (0.0-2.0); % EOSINOPHILS 6.9 % (0.0-5.0); % LYMPHOCYTES 34.2 % (20.0-50.0); % MONOCYTES 8.8 % (2.0-10.0); % NEUTROPHILS 49.3 % (40.0-80.0); BASOPHILE ABSOLUTE 0.1 Th/cumm (0-0.2); EOSINOPHILE ABSOLUTE 0.7 Th/cmm (0.1-0.4); HEMATOCRIT 36.9 % (41.0-60); HEMOGLOBIN 12.3 gm/dL (12-16); LYMPHOCYTE ABSOLUTE 3.3 Th/cmm (1.5-3.0); MEAN CELL VOLUME 94.3 fl (81-100); MEAN CORPUSCULAR HEMOGLOBIN 31.5 pg (27.0-31.0); MEAN CORPUSCULAR HGB CONC 33.4 pg (28.0-36.0); MEAN PLATELET VOLUME 8.1 fl; MONOCYTE ABSOLUTE 0.8 Th/cmm (0.3-1.0); NEUTROPHILE ABSOLUTE 4.7 Th/cmm (1.8-8.0); PLATELET COUNT 239 Th/cmm (150-400); RED BLOOD COUNT 3.91 Mil/cmm (3.80-5.10); RED CELL DISTRIBUTION WIDTH 13.9 % (11.5-20.0); WHITE BLOOD COUNT 9.6 Th/cmm (4.8-10.8)
[2017-07-11 06:31] LABS: ALB/GLOB RATIO 1.6 (1.0-1.8); ALBUMIN 3.6 gm/dL (3.7-5.3); ANION GAP 11.3 (7.0-16.0); BILIRUBIN,TOTAL 0.4 mg/dL (0.3-1.0); CALCIUM SERUM 8.7 mg/dL (8.6-10.3); CARBON DIOXIDE 27.7 mEq/L (21.0-31.0); CREATININE - SERUM 3.9 mg/dL (0.6-1.2); GFR AFRICAN-AMERICAN 14.9 ml/min (>90); GFR NON AFRICAN-AMERICAN 12.3 ml/min; TOTAL PROTEIN,SERUM 5.8 gm/dL (6.0-8.3)
[2017-07-11] MEDS: INSULIN ASPART SLIDING SCALE 100 UNITS/ML UNIT SUBQ SCH ×2 (06:59→17:26)
[2017-07-11] MEDS: Insulin Detemir 100 units/mL 10mL Vial SUBQ SCH (09:27)
[2017-07-11] MEDS: Vitamin B Complex w/Vitamin C Tab PO SCH (09:29)
[2017-07-11] MEDS: NIFEdipine 30 mg ER Tab PO SCH ×2 (09:29→17:25)
[2017-07-11] MEDS: Escitalopram Oxalate 5 mg Tab PO SCH (09:29)
[2017-07-11] MEDS: Prednisolone 1% Ophth Susp 5 mL Bottle LEFT EYE SCH ×2 (09:30→17:26)
[2017-07-12 05:09] LABS: % EOSINOPHILS 6.2 % (0.0-5.0); % LYMPHOCYTES 30.5 % (20.0-50.0); % MONOCYTES 11.3 % (2.0-10.0); BASOPHILE ABSOLUTE 0.1 Th/cumm (0-0.2); EOSINOPHILE ABSOLUTE 0.6 Th/cmm (0.1-0.4); HEMATOCRIT 34.7 % (41.0-60); HEMOGLOBIN 11.3 gm/dL (12-16); LYMPHOCYTE ABSOLUTE 2.7 Th/cmm (1.5-3.0); MEAN CELL VOLUME 94.8 fl (81-100); MEAN CORPUSCULAR HGB CONC 32.7 pg (28.0-36.0); MEAN PLATELET VOLUME 7.8 fl; NEUTROPHILE ABSOLUTE 4.6 Th/cmm (1.8-8.0); PLATELET COUNT 227 Th/cmm (150-400); RED BLOOD COUNT 3.66 Mil/cmm (3.80-5.10); RED CELL DISTRIBUTION WIDTH 13.7 % (11.5-20.0)
[2017-07-12 05:28] LABS: ALB/GLOB RATIO 1.5 (1.0-1.8); ALBUMIN 3.4 gm/dL (3.7-5.3); ANION GAP 12.3 (7.0-16.0); BILIRUBIN,TOTAL 0.4 mg/dL (0.3-1.0); CALCIUM SERUM 8.6 mg/dL (8.6-10.3); CARBON DIOXIDE 26.8 mEq/L (21.0-31.0); GFR AFRICAN-AMERICAN 10.5 ml/min (>90); GFR NON AFRICAN-AMERICAN 8.7 ml/min; POTASSIUM SERUM 4.1 mEq/L (3.5-5.1); TOTAL PROTEIN,SERUM 5.7 gm/dL (6.0-8.3)
[2017-07-12 05:44] LABS: CREATININE - SERUM 5.3 mg/dL (0.6-1.2)
[2017-07-12] MEDS: INSULIN ASPART SLIDING SCALE 100 UNITS/ML UNIT SUBQ SCH (07:37)
[2017-07-12] MEDS: Vitamin B Complex w/Vitamin C Tab PO SCH (08:47)
[2017-07-12] MEDS: Escitalopram Oxalate 5 mg Tab PO SCH (08:48)
[2017-07-12] MEDS: Insulin Detemir 100 units/mL 10mL Vial SUBQ SCH (08:51)
[2017-07-12] MEDS: Prednisolone 1% Ophth Susp 5 mL Bottle LEFT EYE SCH (10:02)
[2017-07-12] MEDS: NIFEdipine 30 mg ER Tab PO SCH (12:10)
--- NOTE | 2017-07-12 12:32 | Diagnostic Imaging Report ---
Head CT without intravenous contrast Indication: Loss of vision in right eye Comparison: None Technique: Axial images were obtained from the vertex to the skull base without IV contrast. Coronal reconstructions were made. Total DLP: 604, CTDI31.4 FINDINGS: Images of the brain obtained without contrast demonstrate no evidence of an acute hemorrhage. Atrophy is noted. Mild white matter disease is noted. The ventricles and basal cisterns are patent. No mass effect or midline shift. No evidence of a skull fracture or focal soft tissue swelling. There is high density within the left globe. IMPRESSION: No evidence of acute intracranial hemorrhage Mild supratentorial white matter disease which is nonspecific and may be due to chronic microvessel ischemia. Atrophy. High density within the left globe which may be due to previous silicone injection procedure. Other mass lesions or hemorrhage is cannot be excluded, please correlate clinically Given loss of vision in the right eye, ophthalmology consultation may be considered.
--- NOTE | 2017-07-12 13:39 | General Progress Note ---
Subjective - Review of Systems Service Date: 07/12/17 Subjective: alert, but still has confusion Objective - Results Result Diagrams: 07/12/17 04:45 07/12/17 04:45 Recent Labs: Laboratory Last Values WBC 9.0 Th/cmm (4.8-10.8) 07/12/17 04:45 RBC 3.66 Mil/cmm (3.80-5.10) L 07/12/17 04:45 Hgb 11.3 gm/dL (12-16) L 07/12/17 04:45 Hct 34.7 % (41.0-60) L 07/12/17 04:45 MCV 94.8 fl (81-100) 07/12/17 04:45 MCH 31.0 pg (27.0-31.0) 07/12/17 04:45 MCHC Differential 32.7 pg (28.0-36.0) 07/12/17 04:45 RDW 13.7 % (11.5-20.0) 07/12/17 04:45 Plt Count 227 Th/cmm (150-400) 07/12/17 04:45 MPV 7.8 fl 07/12/17 04:45 Neutrophils % 51.0 % (40.0-80.0) 07/12/17 04:45 Lymphocytes % 30.5 % (20.0-50.0) 07/12/17 04:45 Monocytes % 11.3 % (2.0-10.0) H 07/12/17 04:45 Eosinophils % 6.2 % (0.0-5.0) H 07/12/17 04:45 Basophils % 1.0 % (0.0-2.0) 07/12/17 04:45 PT 10.1 SECONDS (9.5-11.5) 07/08/17 03:45 INR 0.97 (0.5-1.4) 07/08/17 03:45 Sodium 136 mEq/L (136-145) 07/12/17 04:45 Potassium 4.1 mEq/L (3.5-5.1) 07/12/17 04:45 Chloride 101 mEq/L (98-107) 07/12/17 04:45 Carbon Dioxide 26.8 mEq/L (21.0-31.0) 07/12/17 04:45 Anion Gap 12.3 (7.0-16.0) 07/12/17 04:45 BUN 70 mg/dL (7-25) H 07/12/17 04:45 Creatinine 5.3 mg/dL (0.6-1.2) H* 07/12/17 04:45 Est GFR ( Amer) 10.5 ml/min (>90) 07/12/17 04:45 Est GFR (Non-Af Amer) 8.7 ml/min 07/12/17 04:45 BUN/Creatinine Ratio 13.2 07/12/17 04:45 Glucose 144 mg/dL (70-105) H 07/12/17 04:45 POC Glucose 193 MG/DL (70 - 105) H 07/12/17 12:13 Hemoglobin A1c % 7.3 % (4.0-6.0) H 07/08/17 03:45 Uric Acid 3.3 mg/dL (2.3-6.6) 07/10/17 07:57 Calcium 8.6 mg/dL (8.6-10.3) 07/12/17 04:45 Phosphorus 3.3 mg/dL (2.5-5.0) 07/09/17 05:06 Magnesium 2.4 mg/dL (1.9-2.7) 07/10/17 07:57 Total Bilirubin 0.4 mg/dL (0.3-1.0) 07/12/17 04:45 AST 18 U/L (13-39) 07/12/17 04:45 ALT 12 U/L (7-52) 07/12/17 04:45 Alkaline Phosphatase 111 U/L (34-104) H 07/12/17 04:45 Ammonia 45 umol/L (16-53) 07/08/17 03:45 Creatine Kinase 649 U/L (30-223) H 07/08/17 03:45 CK-MB (CK-2) 11.8 ng/mL (0.6-6.3) H 07/08/17 03:45 Troponin I 0.03 ng/mL (0.01-0.05) 07/08/17 03:45 B-Natriuretic Peptide 383.0 pg/mL (5.0-100.0) H 07/08/17 03:45 Total Protein 5.7 gm/dL (6.0-8.3) L 07/12/17 04:45 Albumin 3.4 gm/dL (3.7-5.3) L 07/12/17 04:45 Globulin 2.3 gm/dL 07/12/17 04:45 Albumin/Globulin Ratio 1.5 (1.0-1.8) 07/12/17 04:45 Triglycerides 122 mg/dL (<150) 07/08/17 03:45 Cholesterol 109 mg/dL (<200) 07/08/17 03:45 LDL Cholesterol Direct 37 mg/dL (75-193) L 07/08/17 03:45 HDL Cholesterol 49 mg/dL (23-92) 07/08/17 03:45 TSH 3.27 uIU/ml (0.34-5.60) 07/08/17 03:45 Salicylates < 25.0 mg/L (30.0-100.0) L 07/08/17 03:45 Acetaminophen < 10.0 ug/mL (10.0-30.0) L 07/08/17 03:45 Ethyl Alcohol < 10 mg/dL (0-10) 07/08/17 03:45 RPR NONREACTIVE (NONREACTIVE) 07/08/17 03:45 - Physical Exam Vitals and I&O: Vital Signs Temp 97.5 F 07/12/17 11:41 Pulse 72 07/12/17 12:10 Resp 19 07/12/17 11:41 BP 141/62 07/12/17 12:10 Pulse Ox 97 07/12/17 11:41 Intake & Output 07/11/17 07/12/17 07/12/17 18:59 06:59 18:59 Intake Total 1000 Balance 1000 Weight (lbs) 87.317 kg 88.496 kg Intake: Oral 1000 Other: # Voids 1 # Bowel Movements 0 Active Medications: Current Medications Acetaminophen (Tylenol) 650 mg PO Q4HR PRN PRN Reason: Pain (Mild) Stop: 09/06/17 10:46 Last Admin: 07/09/17 22:11 Dose: 650 mg Acetaminophen/Hydrocodone Bitart ([place] 5mg/325mg) 1 tab PO Q6H PRN PRN Reason: Pain (Severe) Stop: 09/06/17 10:46 Last Admin: 07/09/17 19:51 Dose: 1 tab Allopurinol (Zyloprim) 100 mg PO TID SALOMÓN Stop: 09/06/17 13:59 Last Admin: 07/12/17 08:50 Dose: 100 mg Alprazolam (Xanax) 1 mg PO DAILY SALOMÓN Stop: 09/07/17 08:59 Last Admin: 07/12/17 08:49 Dose: 1 mg Aspirin (Ecotrin) 81 mg PO DAILY SALOMÓN Stop: 09/06/17 10:59 Last Admin: 07/12/17 10:01 Dose: Not Given Atorvastatin Calcium (Lipitor) 40 mg PO HS SALOMÓN Stop: 09/06/17 20:59 Last Admin: 07/11/17 21:46 Dose: 40 mg Brimonidine Tartrate (Alphagan 0.2% Ophth Soln) 1 drop EACH EYE Q12HR SALOMÓN Stop: 09/07/17 08:59 Last Admin: 07/12/17 10:01 Dose: Not Given Docusate Sodium (Colace) 100 mg PO DAILY SALOMÓN Stop: 09/06/17 10:59 Last Admin: 07/12/17 08:49 Dose: 100 mg Dorzolamide HCl (Trusopt 2% Ophth Soln) 1 drop EACH EYE Q12H SALOMÓN Stop: 09/07/17 08:59 Last Admin: 07/12/17 10:02 Dose: Not Given Escitalopram Oxalate (Lexapro) 5 mg PO DAILY SALOMÓN PRN Reason: Protocol Stop: 09/06/17 10:59 Last Admin: 07/12/17 08:48 Dose: 5 mg Folic Acid (Folate) 1 mg PO DAILY SALOMÓN Stop: 09/06/17 10:59 Last Admin: 07/12/17 08:49 Dose: 1 mg Heparin Sodium (Porcine) (Heparin) 5,000 units SUBQ Q12H SALOMÓN Stop: 09/07/17 20:59 Last Admin: 07/12/17 08:50 Dose: Not Given Insulin Aspart (Novolog Insulin Sliding Scale) 0 units SUBQ BIDAC SALOMÓN PRN Reason: Protocol Stop: 09/06/17 16:29 Last Admin: 07/12/17 07:37 Dose: Not Given Insulin Detemir (Levemir Insulin) 24 units SUBQ QAM [facility] PRN Reason: Protocol Stop: 09/07/17 08:59 Last Admin: 07/12/17 08:51 Dose: Not Given Levothyroxine Sodium 0.05 mg/ (Levothyroxine Sodium 0.1 mg) 0.15 mg PO QDAC SALOMÓN Stop: 09/08/17 10:14 Last Admin: 07/12/17 06:36 Dose: 0.15 mg Metoprolol Tartrate (Lopressor) 50 mg PO BID SALOMÓN Stop: 09/06/17 10:59 Last Admin: 07/12/17 12:10 Dose: 50 mg Miscellaneous (Vte Chemical Prophylaxis Screen/ Admission) 1 ea PRN PRN PRN Reason: PROTOCOL Stop: 09/07/17 15:45 Nifedipine (Procardia Xl) 30 mg PO BID SALOMÓN Stop: 09/07/17 08:59 Last Admin: 07/12/17 12:10 Dose: 30 mg Prednisolone Acetate (Pred Forte 1% Ophth Susp) 1 drop LEFT EYE BID SALOMÓN Stop: 09/06/17 10:59 Last Admin: 07/12/17 10:02 Dose: Not Given Quetiapine Fumarate (Seroquel) 12.5 mg PO DAILY SALOM[facility]N PRN Reason: Protocol Stop: 09/06/17 10:59 Last Admin: 07/12/17 08:48 Dose: 12.5 mg Quetiapine Fumarate (Seroquel) 37.5 mg PO HS SALOMÓN PRN Reason: Protocol Stop: 09/07/17 11:10 Sevelamer Carbonate (Renvela) 1,600 mg PO TID SALOMÓN Stop: 09/06/17 13:59 Last Admin: 07/12/17 08:51 Dose: 1,600 mg Sodium Bicarbonate (Sodium Bicarbonate) 650 mg PO BID SALOMÓN PRN Reason: Protocol Stop: 09/06/17 10:59 Last Admin: 07/12/17 08:47 Dose: 650 mg Vitamin B Complex/Vit C/Folic Acid (Vitamin B Complex W/Vitamin C) 1 tab PO DAILY SALOMÓN Stop: 09/06/17 10:59 Last Admin: 07/12/17 08:47 Dose: 1 tab General: No acute distress, Other (awake) HEENT: Atraumatic, EOMI Neck: Supple, +2 carotid pulse wo bruit Cardiovascular: Regular rate, Normal S1, Normal S2 Lungs: Clear to auscultation Abdomen: Bowel sounds, Soft Extremities: no Edema Neurological: Sensation intact Skin: no Rash Psych/Mental Status: Other (psychosis) Assessment/Plan - Assessment Assessment: ESRD on HD Acute decomp of psych Ess Htn Type 2 DM DJD Hypothyroid CAD - Plan Plan: Lab - Result Diagrams 07/09/17 05:06 07/09/17 05:06 Current Medications Acetaminophen (Tylenol) 650 mg PO Q4HR PRN PRN Reason: Pain (Mild) Stop: 09/06/17 10:46 Acetaminophen/Hydrocodone Bitart ([place]ut[place] 5mg/325mg) 1 tab PO Q6H PRN PRN Reason: Pain (Severe) Stop: 09/06/17 10:46 Allopurinol (Zyloprim) 100 mg PO TID SALOMÓN Stop: 09/06/17 13:59 Last Admin: 07/09/17 14:25 Dose: 100 mg Alprazolam (Xanax) 1 mg PO DAILY SALOMÓN Stop: 09/07/17 08:59 Last Admin: 07/09/17 08:36 Dose: 1 mg Aspirin (Ecotrin) 81 mg PO DAILY SALOMÓN Stop: 09/06/17 10:59 Last Admin: 07/09/17 08:37 Dose: 81 mg Atorvastatin Calcium (Lipitor) 40 mg PO HS SALOMÓN Stop: 09/06/17 20:59 Last Admin: 07/08/17 21:01 Dose: 40 mg Brimonidine Tartrate (Alphagan 0.2% Ophth Soln) 1 drop EACH EYE Q12HR SALOMÓN Stop: 09/07/17 08:59 Last Admin: 07/09/17 10:52 Dose: 1 drop Docusate Sodium (Colace) 100 mg PO DAILY SALOMÓN Stop: 09/06/17 10:59 Last Admin: 07/09/17 08:38 Dose: 100 mg Dorzolamide HCl (Trusopt 2% Ophth Soln) 1 drop EACH EYE Q12H SALOM[facility]N Stop: 09/07/17 08:59 Last Admin: 07/09/17 10:52 Dose: 1 drop Escitalopram Oxalate (Lexapro) 5 mg PO DAILY SALOM[facility]N PRN Reason: Protocol Stop: 09/06/17 10:59 Last Admin: 07/09/17 08:37 Dose: 5 mg Folic Acid (Folate) 1 mg PO DAILY SALOMÓN Stop: 09/06/17 10:59 Last Admin: 07/09/17 08:38 Dose: 1 mg Heparin Sodium (Porcine) (Heparin) 5,000 units SUBQ Q12H SALOM[facility]N Stop: 09/07/17 20:59 Insulin Aspart (Novolog Insulin Sliding Scale) 0 units SUBQ BIDAC SALOM[facility]N PRN Reason: Protocol Stop: 09/06/17 16:29 Last Admin: 07/09/17 08:39 Dose: 4 units Insulin Detemir (Levemir Insulin) 24 units SUBQ QAM [facility]OM[facility]N PRN Reason: Protocol Stop: 09/07/17 08:59 Last Admin: 07/09/17 08:39 Dose: 24 units Levothyroxine Sodium (Synthroid) 0.15 mg PO DAILY SALOMÓN Stop: 09/07/17 08:59 Last Admin: 07/09/17 08:40 Dose: Not Given Metoprolol Tartrate (Lopressor) 50 mg PO BID SALOMÓN Stop: 09/06/17 10:59 Last Admin: 07/09/17 08:38 Dose: 50 mg Miscellaneous (Vte Chemical Prophylaxis Screen/ Admission) 1 ea PRN PRN PRN Reason: PROTOCOL Stop: 09/07/17 15:45 Nifedipine (Procardia Xl) 30 mg PO BID SALOMÓN Stop: 09/07/17 08:59 Last Admin: 07/09/17 08:40 Dose: 30 mg Prednisolone Acetate (Pred Forte 1% Ophth Susp) 1 drop LEFT EYE BID [facility] Stop: 09/06/17 10:59 Last Admin: 07/09/17 08:40 Dose: 1 drop Quetiapine Fumarate (Seroquel) 12.5 mg PO DAILY SALOMÓN PRN Reason: Protocol Stop: 09/06/17 10:59 Last Admin: 07/09/17 08:38 Dose: 12.5 mg Quetiapine Fumarate (Seroquel) 37.5 mg PO HS SALOMÓN PRN Reason: Protocol Stop: 09/07/17 11:10 Sevelamer Carbonate (Renvela) 1,600 mg PO TID SALOMÓN Stop: 09/06/17 13:59 Last Admin: 07/09/17 14:25 Dose: 1,600 mg Sodium Bicarbonate (Sodium Bicarbonate) 650 mg PO BID SALOMÓN PRN Reason: Protocol Stop: 09/06/17 10:59 Last Admin: 07/09/17 08:36 Dose: 650 mg Vitamin B Complex/Vit C/Folic Acid (Vitamin B Complex W/Vitamin C) 1 tab PO DAILY [facility] Stop: 09/06/17 10:59 Last Admin: 07/09/17 08:37 Dose: 1 tab Lab - Result Diagrams 07/12/17 04:45 07/12/17 04:45 adjust psych meds Nutritional Asmnt/Malnutr-PDOC - Dietary Evaluation Malnutrition Findings (Please click <Entered> for more info): Nutritional Asmnt/Malnutrition Start: 07/09/17 17: 41 Text: Status: Complete Freq: Document 07/09/17 17:44 PER (Rec: 07/09/17 17:53 [id number] Nutritional Asmnt/Malnutrition Patient General Information Nutritional Screening High Risk Diagnosis acute psychosis, HTN, ESRD Pertinent Medical Hx/Surgical Hx HTN, DM, CAD, dyslipidemia, ESRD, thyroid disorder, arthritis, dementia, shunt, depression, schizophrenia, bipolar Subjective Information Pt seen sitting on bed at time of visit, awake and alert. Pt reported she ate 100% of breakfast and 75% of lunch. good appetite. Current Diet Order/ Nutrition Support renal Pertinent Medications colace, folate, novolog, levemir, synthroid, seroquel, renvela, vit B complex, w/vit C Pertinent Labs 07/09 Na 135, BUN 26, Cr 3.1, Glucose 200, POC 114-200 3/8 A1c 7.3 Nutritional Hx/Data Height 1.57 m Height (Calculated Centimeters) 157.5 Current Weight (lbs) 86.636 kg Weight (Calculated Kilograms) 86.6 Weight (Calculated Grams) [address]15.1 [place] Body Weight 110 Body Mass Index (BMI) 34.9 Weight Status Obese GI Symptoms GI Symptoms None Last BM no record Difficult in: None Usual diet at home renal CCHO diet at nursing facility Skin Integrity/Comment: intact Current %PO Good (75-100%) Estimated Nutritional Goals BEE in Kcals: Adj wt of IBW Calories/Kcals/Kg 25-30 Kcals Calculated 5327-9964 Protein: Adj wt of IBW Protein g/k monitor renal labs Protein Calculated 59 Fluid: ml 1475-1770ml (1ml/ckal) Nutritional Problem 1. Problem Problem altered nutrition relatecd labs Etiology DM, ESRD Signs/Symptoms: UN 26, Cr 3.1, Glucose 200, POC 114-200, A1c 7.3 Malnutrition Alert Protein-Calorie Malnutrition N/A Is there a minimum of two criteria No selected? Query Text:Check all the applicable criteria. A minimum of two criteria are recommended for diagnosis of either severe or non-severe malnutrition. Intervention/Recommendation Comments 1. Recommend adding CCHO-60gm diet to better control glucose 2. Monitor PO intake, wt, labs and skin integrity 3. F/U as moderate risk in 3-5 days, 07/12-07/14 Expected Outcomes/Goals Expected Outcomes/Goals 1. PO intake to meet at least 75% of nutritional needs. 2. Wt stability, skin to remain intact, labs to approach WNL.
--- NOTE | 2017-07-12 18:07 | Discharge Summary ---
DATE OF DISCHARGE: 07/12/2017 ADMITTING DIAGNOSES: 1. Acute altered mental status with ALOC. 2. Dementia with acute behavioral disorder. SECONDARY DIAGNOSES: Include history of end-stage renal disease, on hemodialysis, elevated uric acid level, dyslipidemia, chronic anemia secondary to end-stage renal disease, insulin-dependent diabetes mellitus, hypothyroidism, hypertension, schizophrenia. DISCHARGE DIAGNOSES: Acute ALOC/altered mental status, resolved. CONSULTANTS: Dr. Messina, Psychiatry and Dr. Baker, Nephrology. MAJOR PROCEDURES: None. BRIEF HOSPITAL COURSE: The patient is a very pleasant 62-year-old female who was transferred from [facility] secondary to an acute episode of ALOC/altered mental status. The patient was apparently noted to have change of her mental status 4 hours prior to her being transferred to the ED. At the ED, there was no major findings in her labs except for her renal function, which was abnormal given her end-stage renal disease. She was admitted to the medical floor where she was monitored with a 1:1 sitter, was evaluated by Psychiatry and all her medications were ordered as scheduled. She was also seen by Nephrology for continuation of her hemodialysis. She has remained stable since admission with improvement of her mental status. She is overall a poor historian and is very forgetful, but currently appeares to be back to her baseline. She has had no episodes of aggressive behavior since been admitted. MEDICATIONS ON DISCHARGE: Tylenol 650 every 4 hours p.r.n. for pain, allopurinol 100 mg t.i.d., Xanax 1 mg every day p.r.n., amino acids and protein supplements 45 mL t.i.d., aspirin 81 every day, atorvastatin 40 at bedtime, Simbrinza eyedrops b.i.d., docusate sodium 100 every day, Lexapro 5 every day, folic acid 2 tabs q.a.c., folic acid 1 mg every day, detemir 24 units q.a.m., Novolin sliding scale twice a day, levothyroxine 150 mcg daily, metoprolol 50 b.i.d., nifedipine 30 every day, prednisone eyedrops b.i.d. to the left eye, Seroquel 12.5 every day, Renvela 1600 t.i.d., sodium bicarbonate 650 b.i.d. CONDITION ON DISCHARGE: Stable. DISPOSITION: The patient was transferred back to [facility]. JOB# [id number] VI
[2017-07-13 03:09] LABS: HEP A AB IGM Negative (Negative); HEP B CORE IGM Negative (Negative); HEP B SURFACE AG QL Negative (Negative); HEP C ANTIBODY <0.1 s/co ratio (0.0-0.9)
--- NOTE | 2017-07-14 11:36 | History & Physical ---
ADMIT DATE: CHIEF COMPLAINT: Altered mental status/ALOC. HISTORY OF PRESENT ILLNESS: The patient is a 62-year-old female presents from [facility] with an acute episode of ALOC for about 4 hours. She does have a history of dementia with behavioral disorder, schizophrenia, as well as hypertension, diabetes, CAD, dyslipidemia, osteoarthritis, elevated uric acid level, hypothyroidism, end-stage renal disease, on hemodialysis Tuesdays, , and Saturdays, and hep C. The patient has been admitted to the medical floor for further management and care. She is somewhat confused at this time, not able to give me a full history and does not remember any of the events that [facility] a jail. She does deny any fever, chills, chest pain, or shortness of breath. PAST MEDICAL HISTORY: As noted above. PAST SURGICAL HISTORY: Include shunt placement on the left side. FAMILY HISTORY: Likely noncontributory to this admission. SOCIAL HISTORY: Denies any tobacco, ETOH, or illicit drug usage. She lives at [facility]. ALLERGIES: NKDA. OUTPATIENT MEDICATIONS: Tylenol 650 q.4 p.r.n. for pain, allopurinol 100 mg t.i.d., alprazolam 1 mg every day for anxiety. She is on amino acids and protein supplements 3 times a day, aspirin 81 every day, atorvastatin 40 at bedtime, docusate sodium 100 every day, Lexapro 5 every day, ferric citrate 210 mg q.a.c, folic acid 1 mg every day, [place] 5/325 q.6 p.r.n. for severe pain, detemir 24 units q.a.m., Novolin insulin sliding scale, levothyroxine 150 mcg daily, metoprolol 50 mg b.i.d., nifedipine 30 mg every day, prednisolone 1% ophthalmic solution 1 drop b.i.d., Seroquel 25 every day, sevelamer 1600 mg t.i.d., sodium bicarbonate 650 b.i.d. REVIEW OF SYSTEMS: A full review of systems was not able to be done given the patient is somewhat confused at this time, but she denies any fever, chills. GENERAL: She denies any fever, chills, any recent weight loss. CARDIOVASCULAR: No chest pain, no angina. PULMONARY: No cough or phlegm production. GASTROINTESTINAL: No bowel habit changes. NEUROLOGIC: She does complain of headache, but denies any syncope. PHYSICAL EXAMINATION: VITAL SIGNS: Temperature 98.0, afebrile, pulse 80, respirations 18, BP 190/70, satting 96% on room air. GENERAL: She is a well-developed, obese female, not in acute distress. She is awake, but confused. HEAD AND NECK: Normocephalic, atraumatic. Pupils reactive to light. Extraocular movements are intact. Oropharynx is moist and clear. CARDIAC: Regular rate and rhythm with no murmurs, gallops, or rubs. LUNGS: Decreased at the bases, but clear to auscultation overall. ABDOMEN: Soft, supple, nontender, nondistended, normoactive bowel sounds. EXTREMITIES: Lower extremities: There is no pedal edema. NEUROLOGIC: Appears to be nonfocal, although full exam could not be done. LABORATORY DATA: White blood cell count is 8.6, H and H 11/35 and a platelet count of 200. INR of 0.97. Chemistry shows a BUN of 59, creatinine 4.9, otherwise within normal limits. Glucose 217, alkaline phosphatase 147. Ammonia level is 45. CPK is 649. Troponin negative x 1 set. BNP 383 and TSH 3.27. Toxicology is negative for salicylates, acetaminophen, and ethyl alcohol. DIAGNOSTICS: X-ray shows increased interstitial lung markings. Atelectasis versus infiltrate of the lung bases cannot be excluded. There might be marginal degree of congestion. There is cardiomegaly and atherosclerotic vascular disease. ASSESSMENT: 1. Acute altered mental status, ALOC. Differential will include psych decompensation given her psych history versus secondary to an infectious/ metabolic culprit. 2. History of dementia with psychotic features. 3. History of schizophrenia. 4. End-stage renal disease, on hemodialysis. 5. History of insulin-dependent diabetes. 6. Essential hypertension, out of control. 7. Morbid obesity. 8. Hypothyroidism. 9. History of elevated uric acid level. PLAN: The patient has been admitted to the medical floor where she has been kept on her medications as scheduled. I will ask for an ammonia level, UA and will ask for follow up x-ray given her initial x-ray results. In the interim, I will ask for a psych as well as a renal consult for further management and care. [facility]# [id number] VI
== END 2017-07-12 14:05 | disposition home or self-care (01) | DRG 947 ==
LOC: ER 02:50 → TELE 06:50 → MSI 07-12 09:35
PROVIDERS: ADMIT Internal Medicine; ATTEND Internal Medicine
PROC: 5A1D70Z Performance of Urinary Filtration, Intermittent, Less than 6 Hours Per Day (ICD-10-PCS; principal; 2017-07-08)
PROC: 5A1D70Z Performance of Urinary Filtration, Intermittent, Less than 6 Hours Per Day (ICD-10-PCS; 2017-07-10)
DX: R41.82 Altered mental status, unspecified (principal); N18.6 End stage renal disease; I13.2 Hypertensive heart and chronic kidney disease with heart failure and with stage 5 chronic kidney disease, or end stage renal disease; E11.22 Type 2 diabetes mellitus with diabetic chronic kidney disease; F03.91 Unspecified dementia, unspecified severity, with behavioral disturbance; F23 Brief psychotic disorder; F29 Unspecified psychosis not due to a substance or known physiological condition; M19.90 Unspecified osteoarthritis, unspecified site; E03.9 Hypothyroidism, unspecified; I25.10 Atherosclerotic heart disease of native coronary artery without angina pectoris; F31.9 Bipolar disorder, unspecified; E78.5 Hyperlipidemia, unspecified; M10.9 Gout, unspecified; I50.9 Heart failure, unspecified; F22 Delusional disorders; D63.1 Anemia in chronic kidney disease; Z79.4 Long term (current) use of insulin; Z99.2 Dependence on renal dialysis
CPT/HCPCS: 36415-UA; 70450-TC; 71045-TC; 80048-TC; 80053-TC; 80061-TC; 80074-90; 80320-TC; 80329-TC; 82140-TC; 82550-TC; 82553; 82948-90; 83036-90; 83735-TC; 83880-TC; 84100-TC; 84443-TC; 84484-TC; 84550-TC; 85025-TC; 85610-TC; 86592-TC; 90937; 93005; 94760; J1644; J1815; J2650; J7030; Z7610

== ENCOUNTER 2017-08-07 09:48 | Emergency (ER) | payer MEDICARE, MEDICAID ==
--- NOTE | 2017-08-07 09:55 | ED Physician Chart ---
ED Chief Complaint/HPI - Patient Information Date Seen:: 08/07/17 Time Seen:: 09:55 Chief Complaint:: HALLUCINATIONS SINCE YESTERDAY/REFUSING DIALYSIS Allergies:: Allergies Allergy/AdvReac Type Severity Reaction Status Date / Time No Known Allergies Allergy Verified 07/08/17 03:09 ED Review of Systems - Review of Systems General/Constitutional: No fever, No chills, No weight loss, No weakness, No diaphoresis, No edema, No loss of appetite Skin: No skin lesions, No rash, No bruising Head: No headache, No light-headedness Eyes: No loss of vision ENT: No earache, No nasal drainage, No sore throat, No tinnitus Neck: No neck pain, No thyromegaly, No stiffness, No mass noted Cardio Vascular: No chest pain, No palpitations, No orthopnea Pulmonary: No SOB, No cough Family Medical History - Family Member Mother History Unknown: Yes Ethnicity: Living Status: ED Physical Exam - Physical Examination General/Constitutional: Awake (HERNIA IN LT UPPER QUAD.), Well-developed, well- nourished, Alert, No distress, Non-toxic appearing Head: Atraumatic Eyes: Lids, conjuctiva normal, PERRL, EOMI Skin: Nl inspection, No rash, No skin lesions, No ecchymosis, No lymphadenopathy ENMT: External ears, nose nl, TM canals nl, Lips, teeth, gums nl, Oropharynx nl , Tonsils nl Neck: Nontender, Full ROM w/o pain, No JVD, No nuchal rigidity, No mass, No stridor Respiratory: Nl effort/Exclusion, Clear to Auscultation, No Wheeze/Rhonchi/Rales Cardio Vascular: RRR, No murmur, gallop, rubs, NL S1 S2 GI: No organomegaly, Normal BS's, Nondistended, No mass/bruits, No McBurney tenderness (RECTAL EXAM DEFERRED AT MY DISCRETION) Other GI comments:: TENDERNESS LLLQ WITH HERNIA. : No CVA tenderness Other Extremities comments:: DIALYSIS SHUNT IN LT UPPER EXTREMITY. Neuro/Psych: Alert/oriented, Normal sensory exam, Normal motor strength, No focal deficits (MAY BE HAVING HALLUCINATIONS OF WORMS ON TONGUE OR IT MAY BE THICK SECRETIONS) ED Labs/Radiology/EKG Results - Lab Results Results: Laboratory Results - last 24 hr 08/07/17 08/07/17 08/07/17 10:12 10:12 10:12 WBC 7.6 RBC 3.74 L Hgb 12.0 Hct 34.8 L MCV 93.2 MCH 32.0 H MCHC Differential 34.4 RDW 13.1 Plt Count 217 MPV 7.8 Neutrophils % 68.2 Lymphocytes % 21.5 Monocytes % 7.2 Eosinophils % 2.4 Basophils % 0.7 Sodium 137 Potassium 4.6 Chloride 97 L Carbon Dioxide 26.9 Anion Gap 17.7 H BUN 52 H Creatinine 5.5 H* Est GFR ( Amer) 10.0 Est GFR (Non-Af Amer) 8.3 BUN/Creatinine Ratio 9.5 Glucose 214 H Whole Bld Lactic Acid 3.53 H* Calcium 9.4 Total Bilirubin 0.5 AST 24 ALT 28 Alkaline Phosphatase 200 H Total Protein 7.0 Albumin 4.4 Globulin 2.6 Albumin/Globulin Ratio 1.7 - Radiology Results Results: Chest x-ray: Single view. No cardiomegaly or CHF. No mediastinal widening. No pneumothorax. Pleural effusion. No areas of pulmonary consolidation or infiltrate. Fashion: No acute cardiopulmonary findings. Radiology reread the CT scan of the head as showing atrophy no other abnormalities were noted by radiology. Laboratory studies show elevated lactic acid. This is consistent with the patient's history of chronic renal failure. ED Septic Shock - . Is Septic Shock (SBP<90, OR Lactate>4 mmol\L) present?: No ED Reassessment (Disposition) - Reassessment Reassessment Condition:: Unchanged - Aftercare/Follow up Instructions Aftercare/Follow-Up Instructions:: Counseled pt regarding lab results/diagnosis & need follow up ED Discharge Plan - Patient Disposition Admit/Discharge/Transfer: PT DISCHARGED HOME Condition at Disposition: Stable Instructions: Chronic Kidney Disease
[2017-08-07 10:27] LABS: % BASOPHILS 0.7 % (0.0-2.0); % EOSINOPHILS 2.4 % (0.0-5.0); % LYMPHOCYTES 21.5 % (20.0-50.0); % MONOCYTES 7.2 % (2.0-10.0); % NEUTROPHILS 68.2 % (40.0-80.0); BASOPHILE ABSOLUTE 0.1 Th/cumm (0-0.2); EOSINOPHILE ABSOLUTE 0.2 Th/cmm (0.1-0.4); HEMATOCRIT 34.8 % (41.0-60); LYMPHOCYTE ABSOLUTE 1.6 Th/cmm (1.5-3.0); MEAN CELL VOLUME 93.2 fl (81-100); MEAN CORPUSCULAR HGB CONC 34.4 pg (28.0-36.0); MEAN PLATELET VOLUME 7.8 fl; MONOCYTE ABSOLUTE 0.5 Th/cmm (0.3-1.0); NEUTROPHILE ABSOLUTE 5.2 Th/cmm (1.8-8.0); PLATELET COUNT 217 Th/cmm (150-400); RED BLOOD COUNT 3.74 Mil/cmm (3.80-5.10); RED CELL DISTRIBUTION WIDTH 13.1 % (11.5-20.0); WHITE BLOOD COUNT 7.6 Th/cmm (4.8-10.8)
[2017-08-07 10:44] LABS: ALB/GLOB RATIO 1.7 (1.0-1.8); ALBUMIN 4.4 gm/dL (3.7-5.3); ANION GAP 17.7 (7.0-16.0); BILIRUBIN,TOTAL 0.5 mg/dL (0.3-1.0); CALCIUM SERUM 9.4 mg/dL (8.6-10.3); CARBON DIOXIDE 26.9 mEq/L (21.0-31.0); GFR NON AFRICAN-AMERICAN 8.3 ml/min; POTASSIUM SERUM 4.6 mEq/L (3.5-5.1)
[2017-08-07 10:51] LABS: CREATININE - SERUM 5.5 mg/dL (0.6-1.2)
[2017-08-07 12:46] LABS: URINE BILIRUBIN NEGATIVE (NEGATIVE); URINE BLOOD SMALL (NEGATIVE); URINE GLUCOSE (UA) 250 mg/dL (NEGATIVE); URINE KETONE NEGATIVE (NEGATIVE); URINE LEUKOCYTE ESTERASE SMALL (NEGATIVE); URINE NITRATE NEGATIVE (NEGATIVE); URINE PROTEIN >=300 mg/dL (NEGATIVE); URINE SOURCE CLEAN C; URINE UROBILINOGEN 0.2 E.U./dL (0.2 - 1.0)
[2017-08-07 12:47] LABS: URINE CLARITY CLOUDY (CLEAR); URINE COLOR YELLOW
[2017-08-07 15:45] LABS: A1C % 8.6 % (4.0-6.0)
--- NOTE | 2017-08-08 09:47 | Diagnostic Imaging Report ---
CT scan of the brain without intravenous contrast HISTORY: Altered mental status Total DLP equals 831 CTDI equals 41.8 Axial sections were obtained from the base of the skull to the vertex. There is prominence/enlargement of the ventricular system size. Associated enlargement of cerebral sulci and subarachnoid cisterns. Findings are consistent with changes of generalized cerebral atrophy. No acute parenchymal abnormalities. No acute cerebral hemorrhage. Hypodensity is seen within the supratentorial white matter regions without mass effect. The findings may be associated with chronic small vessel ischemic disease. No extra-axial masses or abnormal fluid collections. IMPRESSION: 1. No acute abnormalities 2. Cerebral atrophy 3. Supratentorial white matter changes that may reflect chronic small vessel ischemic disease
--- NOTE | 2017-08-08 10:05 | Diagnostic Imaging Report ---
Portable chest x-ray Time: 1004 History: Chest pain Compared to prior exam of 07/10/2017 Allowing for portable technique the heart size is normal. No focal pulmonary parenchymal processes. No hilar or mediastinal abnormalities. Impression: No acute abnormalities. :
== END 2017-08-07 13:38 | disposition home or self-care (01) ==
LOC: ER 09:48
DX: R41.82 Altered mental status, unspecified (principal); R44.3 Hallucinations, unspecified
CPT/HCPCS: 36415-UA; 70450-TC; 71045-TC; 80053-TC; 81001-TC; 83036-90; 83605; 85025-TC

== ENCOUNTER 2017-09-13 17:41 | Inpatient (IN) | payer MEDICARE, MEDICAID ==
--- NOTE | 2017-09-13 19:18 | ED Physician Chart ---
ED Chief Complaint/HPI - Patient Information Allergies:: Allergies Allergy/AdvReac Type Severity Reaction Status Date / Time No Known Allergies Allergy Verified 08/07/17 10:05 Vitals:: Vital Signs - 8 hr 09/13/17 18:30 Temp 100.0 F HR 94 RR 18 BP 162/90 O2 Sat % 96 <Tone Azar - Last Filed: 09/13/17 21:28> - Patient Information Date Seen:: 09/13/17 Time Seen:: 19:17 Chief Complaint:: Generalized weakness History of Present Illness:: 62 yo female was brought from to ER for evaluation of generalized weakness for one day. Per report, there was no trauma. Allergies:: Allergies Allergy/AdvReac Type Severity Reaction Status Date / Time No Known Allergies Allergy Verified 08/07/17 10:05 Vitals:: Vital Signs - 8 hr 09/13/17 18:30 Temp 100.0 F HR 94 RR 18 BP 162/90 O2 Sat % 96 <Becky Stout - Last Filed: 09/15/17 21:19> ED Review of Systems - Review of Systems General/Constitutional: No fever, Weakness Skin: No skin lesions Head: No headache Eyes: No pain ENT: No nasal drainage Neck: No neck pain Cardio Vascular: No chest pain Pulmonary: No SOB GI: No pain Musculoskeletal: Muscle pain Psychiatric: No prior psych history, Depression Neurological: No focal symptoms <Becky Stout - Last Filed: 09/15/17 21:19> ED Past Medical History - Past Medical History Past Medical History: Other (renal failure on dialysis; hypertension; atherosclerotic heart disease; diabetes type 2; gallop; hyperlipidemia; schizophrenia; glaucoma; anemia; anxiety; congestive heart failure; major depression; psychosis ) Family History: Other (unavailable) Social History: Care Facility Surgical History: other (unavailable) <Tone Azar - Last Filed: 09/13/17 21:28> - Past Medical History Past Medical History: Other <Becky Stout - Last Filed: 09/15/17 21:19> Family Medical History - Family Member Mother History Unknown: Yes Ethnicity: Living Status: <Becky Stout - Last Filed: 09/15/17 21:19> ED Physical Exam - Physical Examination General/Constitutional: Awake, Well-developed, well-nourished, Alert, No distress, GCS 15, Non-toxic appearing, Ambulatory Head: Atraumatic Eyes: Lids, conjuctiva normal, PERRL, EOMI Skin: Nl inspection, No rash, No skin lesions, No ecchymosis, Well hydrated, No lymphadenopathy ENMT: External ears, nose nl, Nasal exam nl, Lips, teeth, gums nl Neck: Nontender, Full ROM w/o pain, No JVD, No nuchal rigidity, No bruit, No mass, No stridor Respiratory: Nl effort/Exclusion, Clear to Auscultation, No Wheeze/Rhonchi/Rales Cardio Vascular: RRR, No murmur, gallop, rubs, NL S1 S2 GI: No tenderness/rebounding/guarding, No organomegaly, No hernia, Normal BS's, Nondistended, No mass/bruits, No McBurney tenderness : No CVA tenderness Extremities: No tenderness or effusion, Full ROM, normal strength in all extremities, No edema, Normal digits & nails Neuro/Psych: Alert/oriented, DTR's symmetric, Normal sensory exam, Normal motor strength, Judgement/insight normal, Mood normal, Normal gait, No focal deficits Misc: Normal back, No paraspinal tenderness <Tone Azar - Last Filed: 09/13/17 21:28> ED Labs/Radiology/EKG Results - Lab Results Results: Laboratory Tests 09/13/17 09/13/17 09/13/17 19:25 19:25 19:25 WBC 8.6 RBC 3.27 L Hgb 10.1 L Hct 30.2 L MCV 92.4 MCH 30.9 MCHC Differential 33.4 RDW 14.2 Plt Count 232 MPV 7.3 Neutrophils % 69.1 Lymphocytes % 19.6 L Monocytes % 9.6 Eosinophils % 1.2 Basophils % 0.5 Sodium 134 L Potassium 5.0 Chloride 99 Carbon Dioxide 24.8 Anion Gap 15.2 BUN 59 H Creatinine 5.4 H* Est GFR ( Amer) 10.3 Est GFR (Non-Af Amer) 8.5 BUN/Creatinine Ratio 10.9 Glucose 193 H Calcium 9.1 Total Bilirubin 0.6 AST 14 ALT 16 Alkaline Phosphatase 178 H Troponin I B-Natriuretic Peptide 726.0 H Total Protein 6.3 Albumin 3.8 Globulin 2.5 Albumin/Globulin Ratio 1.5 TSH 09/13/17 09/13/17 19:25 19:25 WBC RBC Hgb Hct MCV MCH MCHC Differential RDW Plt Count MPV Neutrophils % Lymphocytes % Monocytes % Eosinophils % Basophils % Sodium Potassium Chloride Carbon Dioxide Anion Gap BUN Creatinine Est GFR ( Amer) Est GFR (Non-Af Amer) BUN/Creatinine Ratio Glucose Calcium Total Bilirubin AST ALT Alkaline Phosphatase Troponin I 0.02 B-Natriuretic Peptide Total Protein Albumin Globulin Albumin/Globulin Ratio TSH 1.04 - Radiology Results Results: Chest x-ray demonstrated cardiomegaly and increased interstitial markings - EKG Interpretations Rate & Rhythm: sinus rhythm with a rate of 92 old inferior myocardial infarction ; Comments:: Left axis deviation <Tone Azar - Last Filed: 09/13/17 21:28> ED Assessment - Assessment General Assessment: I spoke to Dr. Shrestha and patient refused dialysis <Tone Azar - Last Filed: 09/13/17 21:28> ED Septic Shock - . Is Septic Shock (SBP<90, OR Lactate>4 mmol\L) present?: No - <6hrs of presentation: Vital Signs: Vital Signs - 8 hr 09/13/17 18:30 Temp 100.0 F HR 94 RR 18 BP 162/90 O2 Sat % 96 <Tone Azar - Last Filed: 09/13/17 21:28> - . Is Septic Shock (SBP<90, OR Lactate>4 mmol\L) present?: No - <6hrs of presentation: Vital Signs: Vital Signs - 8 hr 09/13/17 18:30 Temp 100.0 F HR 94 RR 18 BP 162/90 O2 Sat % 96 <Becky Stout - Last Filed: 09/15/17 21:19> ED Reassessment (Disposition) - Reassessment Reassessment Condition:: Unchanged - Diagnosis Diagnosis:: Renal failure on dialysis; refusal to have dialysis; schizophrenia - Patient Disposition Admitted to:: Telemetry Spoke to:: Payal Shrestha Admitting Medical Physician:: Mckenna Shrestha Condition at Disposition:: Stable, Unchanged <Tone Azar - Last Filed: 09/13/17 21:28> - Reassessment Reassessment:: Dr. Azar assumed care at 20:00 <Bceky Stout - Last Filed: 09/15/17 21:19> ED Discharge Plan <Tone Azar - Last Filed: 09/13/17 21:28> <Becky Stout - Last Filed: 09/15/17 21:19> - Patient Disposition Admit/Discharge/Transfer: Acute Care w/in this hosp
[2017-09-13 19:36] LABS: % BASOPHILS 0.5 % (0.0-2.0); % EOSINOPHILS 1.2 % (0.0-5.0); % LYMPHOCYTES 19.6 % (20.0-50.0); % MONOCYTES 9.6 % (2.0-10.0); % NEUTROPHILS 69.1 % (40.0-80.0); EOSINOPHILE ABSOLUTE 0.1 Th/cmm (0.1-0.4); HEMATOCRIT 30.2 % (41.0-60); HEMOGLOBIN 10.1 gm/dL (12-16); LYMPHOCYTE ABSOLUTE 1.7 Th/cmm (1.5-3.0); MEAN CELL VOLUME 92.4 fl (81-100); MEAN CORPUSCULAR HEMOGLOBIN 30.9 pg (27.0-31.0); MEAN CORPUSCULAR HGB CONC 33.4 pg (28.0-36.0); MEAN PLATELET VOLUME 7.3 fl; MONOCYTE ABSOLUTE 0.8 Th/cmm (0.3-1.0); PLATELET COUNT 232 Th/cmm (150-400); RED BLOOD COUNT 3.27 Mil/cmm (3.80-5.10); RED CELL DISTRIBUTION WIDTH 14.2 % (11.5-20.0); WHITE BLOOD COUNT 8.6 Th/cmm (4.8-10.8)
[2017-09-13 19:52] LABS: ALB/GLOB RATIO 1.5 (1.0-1.8); ALBUMIN 3.8 gm/dL (3.7-5.3); ANION GAP 15.2 (7.0-16.0); BILIRUBIN,TOTAL 0.6 mg/dL (0.3-1.0); CALCIUM SERUM 9.1 mg/dL (8.6-10.3); CARBON DIOXIDE 24.8 mEq/L (21.0-31.0); GFR AFRICAN-AMERICAN 10.3 ml/min (>90); GFR NON AFRICAN-AMERICAN 8.5 ml/min; TOTAL PROTEIN,SERUM 6.3 gm/dL (6.0-8.3)
[2017-09-13 20:09] LABS: CREATININE - SERUM 5.4 mg/dL (0.6-1.2)
[2017-09-14] MEDS: Hydrocodone/APAP 5mg/325mg Tab PO PRN ×2 (00:15→06:39)
[2017-09-14] MEDS: Prednisolone 1% Ophth Susp 5 mL Bottle LEFT EYE SCH ×3 (00:23→18:12)
[2017-09-14 03:41] VITALS: BP 160/90
[2017-09-14] MEDS: Levothyroxine 0.075 Mg Tab PO SCH (06:39)
[2017-09-14] MEDS ORDERED: INSULIN HUMAN REGULAR 100 UNITS/ML UNIT SUBQ SCH (07:30)
--- NOTE | 2017-09-14 07:40 | Diagnostic Imaging Report ---
CHEST X-RAY: AP view INDICATION: Shortness of breath COMPARISON: Chest x-ray 08/07/2017 FINDINGS: Low lung volumes are seen with mild congestive changes and increased bilateral lower lung zone markings. Cardiomegaly is noted. Degenerative changes of the spine are noted. Postsurgical changes of the left shoulder are noted. IMPRESSION: Low lung volumes with mild congestive changes. Developing infiltrates of the lower lung zones cannot be excluded. Cardiomegaly.
[2017-09-14] MEDS ORDERED: Non-Formulary Item 1 EA (Amino Acids/Protein Hydrolys [Pro-Stat Sugar Free Liquid] 30 ML) PO SCH (09:00)
[2017-09-14] MEDS ORDERED: VITAMIN B COMPLEX PO SCH (09:00)
[2017-09-14] MEDS: Vitamin B Complex w/Vitamin C Tab PO SCH (09:11)
[2017-09-14] MEDS: Escitalopram Oxalate 5 mg Tab PO SCH (09:12)
[2017-09-14] MEDS: Insulin Detemir 100 units/mL 10mL Vial SUBQ SCH (09:13)
[2017-09-14] MEDS ORDERED: Albuterol/Ipratropium Neb 3 ML AERS HHN PRN (10:18)
[2017-09-14] MEDS: cefTRIAXone 1 GM in Sodium Chloride 0.9% 50 ML IV SCH (10:51)
--- NOTE | 2017-09-14 10:58 | History & Physical ---
ADMIT DATE: 09/14/2017 CHIEF COMPLAINT: Weakness and noncompliance with hemodialysis, acute psychosis. HISTORY OF PRESENT ILLNESS: The patient is a very pleasant 62-year-old female who lives at [facility] with medical history significant for end-stage renal disease, hypertension, chronic anemia, hyperlipidemia, CAD, CHF, gout, history of schizophrenia, hypothyroidism, insulin-dependent diabetes, who has been admitted to this facility in the past for similar episodes of noncompliance and altered mental status. The patient apparently refused hemodialysis yesterday at the shelter and has been complaining about receiving dialysis for the last couple of weeks at that facility. She was transferred yesterday to the ED where pertinent findings included a BUN is and creatinine of 46/3.9. She has been admitted to a telemetry red for further management and care. PAST MEDICAL HISTORY: As noted above, also history of generalized muscle weakness, unsteady gait, essential hypertension, history of chronic anemia, type 2 diabetes without complications, bipolar disorder, major depressive disorder; anxiety disorder, unspecified; glaucoma, idiopathic gout. PAST SURGICAL HISTORY: Include a shunt placement in the left upper extremity. FAMILY HISTORY: Likely noncontributory to this admission. SOCIAL HISTORY: She denies any tobacco, ETOH, or illicit drug usage. ALLERGIES: NKDA. OUTPATIENT MEDICATIONS: Tylenol 650 q.4 p.r.n. for pain, allopurinol 100 t.i.d., alprazolam 0.5 every Wednesday, Wednesday, and Wednesday and 1 mg every day, amino acids every day, aspirin 81 every day, docusate sodium 100 every day, Trusopt 2% ophthalmic drops one drop to each eye q.12, Lexapro 5 every day, folic acid with vitamins 1 mg every day, [place] 5/325 q.6 p.r.n., detemir insulin 24 q.a.m., regular insulin sliding scale, levothyroxine 150 mcg every day, metoprolol 50 b.i.d., prednisolone eye drops b.i.d. to the left eye, Seroquel 12.5 every day and 37.5 at bedtime, Renvela 2400 mg t.i.d., sodium bicarbonate 650 b.i.d., vitamin B complex every day. REVIEW OF SYSTEMS: A good review of systems was unable to be obtained given that the patient is somewhat confused, but she is able to answer some simple questions. GENERAL: She does admit to generalized tiredness and weakness. CARDIOVASCULAR: Denies any angina type symptomatology. No chest pain, palpitations. PULMONARY: Mild shortness of breath, but no cough or phlegm production. GENITOURINARY: She denies any dysuria. She does produce urine. NEUROLOGIC: No changes in vision, no headaches, no syncopal episodes. PHYSICAL EXAMINATION: VITAL SIGNS: Temperature 99.0, pulse 91, respirations 20, BP 146/92 with 2 liters sats of 99%. GENERAL: Well developed, well nourished, currently sitting up in bed, eating breakfast. She is awake and appears to be alert and oriented x 1. HEAD AND NECK: Normocephalic, atraumatic. Pupils are reactive to light. Extraocular movements are intact. Oropharynx is moist and clear. CARDIAC: Regular rate and rhythm with distant sounds. LUNGS: Diminished at the bases, but clear to auscultation. ABDOMEN: Soft, supple, nontender, nondistended, normoactive bowel sounds. LOWER EXTREMITIES: There is no edema. NEUROLOGIC: Grossly intact, nonfocal. LABORATORY DATA: H and H 10/30, white count 8.6. Sodium 134, potassium 5.0, chloride 99, BUN 59, creatinine 5.4. Sodium 193, alkaline phosphatase 178. BNP 726. TSH 1.04. DIAGNOSTICS: Chest x-ray shows low lung volumes with mild congestive changes. Developing infiltrates on the lower lung zones cannot be excluded. An EKG shows sinus rhythm at a rate of 92. ASSESSMENT: 1. Generalized weakness and tiredness, likely secondary to hemodialysis noncompliance. 2. History of end-stage renal disease. 3. Low-grade fevers, etiology rule out urinary tract infection versus developing pna. 4. History of hypertension. 5. History of chronic anemia. 6. History of hyperlipidemia. 7. History of coronary artery disease/congestive heart failure. 8. History of gout. 9. History of schizophrenia. 10. Psych exacerbation. PLAN: The patient has been admitted to the tele floor for further management and care. The patient will be kept on her current medications as scheduled. I discussed with patient importance of receiving hemodialysis today for which I have call Dr. Baker. She will be started on IV antibiotics, namely Rocephin 1 gram q.24 and her labs will be monitored on a daily basis. A psych consult will also be asked for further management and care. JOB# [id number] [email or web address]
[2017-09-14] MEDS: Albuterol/Ipratropium Neb 3 ML AERS HHN SCH ×4 (11:18→23:00)
[2017-09-14 15:59] LABS: URINE MICROSCOPIC INDICATED? YES; URINE SOURCE RANDOM
[2017-09-14 16:06] LABS: URINE BILIRUBIN NEGATIVE (NEGATIVE); URINE BLOOD TRACE (NEGATIVE); URINE GLUCOSE (UA) 250 mg/dL (NEGATIVE); URINE KETONE NEGATIVE (NEGATIVE); URINE LEUKOCYTE ESTERASE NEGATIVE (NEGATIVE); URINE NITRATE NEGATIVE (NEGATIVE); URINE PROTEIN >=300 mg/dL (NEGATIVE); URINE UROBILINOGEN 0.2 E.U./dL (0.2 - 1.0)
[2017-09-14 16:20] LABS: URINE CLARITY SLIGHTLY HAZY (CLEAR); URINE COLOR YELLOW
[2017-09-14 16:28] LABS: A1C % 7.6 % (4.0-6.0)
[2017-09-14 16:38] LABS: URINE BACTERIA NONE SEEN /hpf (NONE SEEN); URINE EPITHELIAL CELLS MODERATE /lpf (FEW); URINE RBC 0-2 /hpf (0-5); URINE WBC 0-2 /hpf (0-5)
--- NOTE | 2017-09-14 17:14 | Consultation ---
DATE OF CONSULTATION: 09/14/2017 REASON FOR CONSULTATION: Electrolyte imbalance and fluid management. HISTORY OF PRESENT ILLNESS: This is a 62-year-old female with past medical history of end-stage renal disease on hemodialysis, who came in because of refusal of medical management as well as agitation. A few hours prior to admission, patient was noted to be quite weak with easy fatigability. She has been refusing her dialysis treatment. She also manifested agitation and noncompliance with her other medical treatments. She was eventually brought to the Emergency Room. Labs drawn revealed a BUN/creatinine of 59/5.4. Chest x-ray showed cardiomegaly, mild congestion with some changes. She had no fever/chills, nausea/vomiting, diarrhea, headache, cough or congestion. PAST MEDICAL HISTORY: 1. End-stage renal disease, on hemodialysis. 2. Psychosis. 3. Essential hypertension. 4. Anemia of chronic kidney disease. 5. Type 2 diabetes mellitus. 6. Dyslipidemia. 7. Bipolar disorder. 8. Major depression. 9. Glaucoma. 10. History of congestive heart failure. 11. History of gout. PAST SURGICAL HISTORY: Status post creation of left AV fistula. CURRENT MEDICATIONS: She is currently on acetaminophen, albuterol/ipratropium, Zyloprim, alprazolam, aspirin, ceftriaxone, docusate sodium, escitalopram, aspart, detemir, levothyroxine, metoprolol, quetiapine, sodium bicarbonate. ALLERGIES: No known drug allergies. SOCIAL HISTORY: No history of alcohol or tobacco use. FAMILY HISTORY: Unknown at the present time. REVIEW OF SYSTEMS: The patient refused to respond to my inquiries, so I was unable to pursue further my review of systems. PHYSICAL EXAMINATION: GENERAL: The patient is somewhat agitated, in mild respiratory distress on the obese side. VITAL SIGNS: Blood pressure is 149/72, pulse 82, temperature 98.2 degrees. SKIN: Good turgor, warm, no rash, no jaundice appreciated. HEENT: Head normocephalic, atraumatic. Eyes: Extraocular muscles intact. Pupils equal, round, reactive to light and accommodates. Anicteric sclerae. Pale conjunctivae. Nose, midline nasal septum. Mouth, moist mucosa with poor dentition. NECK: Supple, no adenopathy, no thyromegaly, no bruits. Trachea palpated in the midline. CHEST AND CARDIOVASCULAR: Distant heart sounds due to the patient's size, S1, S2. No rub, murmur, no gallop appreciated. Point of maximal impulse, unable to assess due to her size. LUNGS: Equal expansion. Minimal to moderate use of accessory muscles. No supraclavicular retraction. Scattered rhonchi, diminished breath sounds, but no wheezes appreciated. BREASTS: Pendulous, symmetrical, without any discharge. ABDOMEN: Obese, soft, positive for bowel sounds. No bruits either diastolic or systolic. RECTAL: The patient refused. GENITOURINARY: Normal appearing female genitalia. MUSCULOSKELETAL: No effusions present in her joints, but unable to assess her range of motion. EXTREMITIES: She has a minimal bipedal edema. She has a palpable femoral, but unable to fully appreciate popliteal and dorsalis pedis pulses. NEUROLOGIC: The patient is awake, but agitated, not cooperative at the present time, so I was not able to pursue further my neuro exam. LABORATORY DATA: Did reveal white count 8.6, hemoglobin 10.1, hematocrit 30.2, sodium 134, potassium 5, chloride 99, CO2 24, BUN 59, creatinine 5.4, glucose is 193. BNP is 726. TSH is 1.04. IMPRESSION: 1. End-stage renal disease, on hemodialysis. 2. Generalized weakness with easy fatigability secondary to uremia. 3. Uremia secondary to noncompliance with dialysis. 4. Hypothyroidism. 5. Acute decompensation of psychosis. 6. Bipolar disorder. 7. Major depression. 8. Essential hypertension. 9. Type 2 diabetes mellitus. 10. Anemia of chronic kidney disease. 11. Dyslipidemia. 12. Glaucoma. 13. History of congestive heart failure. 14. Gout. PLAN: 1. Hemodialysis today. 2. Follow up electrolytes. 3. Follow up chest x-ray. 4. Uric acid level, hemoglobin A1c. Thank you Dr. Shrestha for this consult. We will follow the patient closely with you. JOB# [id number]
[2017-09-14 18:01] LABS: % BASOPHILS 0.5 % (0.0-2.0); % EOSINOPHILS 6.7 % (0.0-5.0); % NEUTROPHILS 63.8 % (40.0-80.0); EOSINOPHILE ABSOLUTE 0.4 Th/cmm (0.1-0.4); HEMATOCRIT 26.6 % (41.0-60); HEMOGLOBIN 8.9 gm/dL (12-16); LYMPHOCYTE ABSOLUTE 1.3 Th/cmm (1.5-3.0); MEAN CELL VOLUME 92.1 fl (81-100); MEAN CORPUSCULAR HEMOGLOBIN 30.9 pg (27.0-31.0); MEAN CORPUSCULAR HGB CONC 33.5 pg (28.0-36.0); MEAN PLATELET VOLUME 7.4 fl; MONOCYTE ABSOLUTE 0.3 Th/cmm (0.3-1.0); NEUTROPHILE ABSOLUTE 3.5 Th/cmm (1.8-8.0); PLATELET COUNT 213 Th/cmm (150-400); RED BLOOD COUNT 2.89 Mil/cmm (3.80-5.10); RED CELL DISTRIBUTION WIDTH 14.2 % (11.5-20.0)
[2017-09-14] MEDS: INSULIN ASPART SLIDING SCALE 100 UNITS/ML UNIT SUBQ SCH (18:11)
[2017-09-14 18:23] LABS: ALB/GLOB RATIO 1.5 (1.0-1.8); ALBUMIN 3.5 gm/dL (3.7-5.3); ANION GAP 14.2 (7.0-16.0); BILIRUBIN,TOTAL 0.4 mg/dL (0.3-1.0); CALCIUM SERUM 8.4 mg/dL (8.6-10.3); CARBON DIOXIDE 24.8 mEq/L (21.0-31.0); GFR AFRICAN-AMERICAN 12.3 ml/min (>90); GFR NON AFRICAN-AMERICAN 10.2 ml/min; TOTAL PROTEIN,SERUM 5.9 gm/dL (6.0-8.3)
[2017-09-14 18:47] LABS: WHITE BLOOD COUNT 5.5 Th/cmm (4.8-10.8)
[2017-09-14 18:52] LABS: CREATININE - SERUM 4.6 mg/dL (0.6-1.2)
[2017-09-14] MEDS ORDERED: Haloperidol Lactate 5 mg/mL 1mL Vial IM ONE (22:43)
[2017-09-15] MEDS ORDERED: Heparin Sod 1,000 Units/mL 10ml HD SCH
[2017-09-15] MEDS ORDERED: Albumin 25% 25gm/100mL 25 GM/100 ML BTL IV PRN
[2017-09-15] MEDS: Albuterol/Ipratropium Neb 3 ML AERS HHN SCH ×6 (03:07→22:20)
[2017-09-15] MEDS: INSULIN ASPART SLIDING SCALE 100 UNITS/ML UNIT SUBQ SCH ×2 (08:46→18:09)
[2017-09-15] MEDS: Levothyroxine 0.075 Mg Tab PO SCH (09:33)
[2017-09-15] MEDS: Escitalopram Oxalate 5 mg Tab PO SCH (09:34)
[2017-09-15] MEDS: Prednisolone 1% Ophth Susp 5 mL Bottle LEFT EYE SCH ×2 (09:35→18:09)
[2017-09-15] MEDS: Vitamin B Complex w/Vitamin C Tab PO SCH (09:36)
[2017-09-15] MEDS: Insulin Detemir 100 units/mL 10mL Vial SUBQ SCH (09:42)
[2017-09-15] MEDS: Atorvastatin Calcium 10 MG TAB PO SCH (10:31)
[2017-09-15] MEDS: cefTRIAXone 1 GM in Sodium Chloride 0.9% 50 ML IV SCH (11:32)
--- NOTE | 2017-09-15 13:04 | General Progress Note ---
Subjective - Review of Systems Service Date: 09/15/17 Subjective: sleeping, still w/ periods of agitation Objective - Results Result Diagrams: 09/14/17 17:50 09/14/17 17:50 Recent Labs: Laboratory Last Values WBC 5.5 Th/cmm (4.8-10.8) D 09/14/17 17:50 RBC 2.89 Mil/cmm (3.80-5.10) L 09/14/17 17:50 Hgb 8.9 gm/dL (12-16) L 09/14/17 17:50 Hct 26.6 % (41.0-60) L 09/14/17 17:50 MCV 92.1 fl (81-100) 09/14/17 17:50 MCH 30.9 pg (27.0-31.0) 09/14/17 17:50 MCHC Differential 33.5 pg (28.0-36.0) 09/14/17 17:50 RDW 14.2 % (11.5-20.0) 09/14/17 17:50 Plt Count 213 Th/cmm (150-400) 09/14/17 17:50 MPV 7.4 fl 09/14/17 17:50 Neutrophils % 63.8 % (40.0-80.0) 09/14/17 17:50 Lymphocytes % 23.0 % (20.0-50.0) 09/14/17 17:50 Monocytes % 6.0 % (2.0-10.0) 09/14/17 17:50 Eosinophils % 6.7 % (0.0-5.0) H 09/14/17 17:50 Basophils % 0.5 % (0.0-2.0) 09/14/17 17:50 Sodium 134 mEq/L (136-145) L 09/14/17 17:50 Potassium 4.0 mEq/L (3.5-5.1) 09/14/17 17:50 Chloride 99 mEq/L (98-107) 09/14/17 17:50 Carbon Dioxide 24.8 mEq/L (21.0-31.0) 09/14/17 17:50 Anion Gap 14.2 (7.0-16.0) 09/14/17 17:50 BUN 53 mg/dL (7-25) H 09/14/17 17:50 Creatinine 4.6 mg/dL (0.6-1.2) H* 09/14/17 17:50 Est GFR ( Amer) 12.3 ml/min (>90) 09/14/17 17:50 Est GFR (Non-Af Amer) 10.2 ml/min 09/14/17 17:50 BUN/Creatinine Ratio 11.5 09/14/17 17:50 Glucose 201 mg/dL (70-105) H 09/14/17 17:50 POC Glucose 140 MG/DL (70 - 105) H 09/15/17 09:12 Hemoglobin A1c % 7.6 % (4.0-6.0) H 09/13/17 19:25 Calcium 8.4 mg/dL (8.6-10.3) L 09/14/17 17:50 Magnesium 2.0 mg/dL (1.9-2.7) 09/14/17 17:50 Total Bilirubin 0.4 mg/dL (0.3-1.0) 09/14/17 17:50 AST 14 U/L (13-39) 09/14/17 17:50 ALT 13 U/L (7-52) 09/14/17 17:50 Alkaline Phosphatase 158 U/L (34-104) H 09/14/17 17:50 Troponin I 0.02 ng/mL (0.01-0.05) 09/13/17 19:25 B-Natriuretic Peptide 726.0 pg/mL (5.0-100.0) H 09/13/17 19:25 Total Protein 5.9 gm/dL (6.0-8.3) L 09/14/17 17:50 Albumin 3.5 gm/dL (3.7-5.3) L 09/14/17 17:50 Globulin 2.4 gm/dL 09/14/17 17:50 Albumin/Globulin Ratio 1.5 (1.0-1.8) 09/14/17 17:50 Triglycerides 173 mg/dL (<150) H 09/14/17 17:50 Cholesterol 134 mg/dL (<200) 09/14/17 17:50 LDL Cholesterol Direct 61 mg/dL (75-193) L 09/14/17 17:50 HDL Cholesterol 33 mg/dL (23-92) 09/14/17 17:50 TSH 2.12 uIU/ml (0.34-5.60) 09/14/17 17:50 Urine Source RANDOM 09/14/17 14:35 Urine Color YELLOW 09/14/17 14:35 Urine Clarity SLIGHTLY HAZY (CLEAR) 09/14/17 14:35 Urine pH 7.0 (4.6 - 8.0) 09/14/17 14:35 Ur Specific [place] 1.015 (1.005-1.030) 09/14/17 14:35 Urine Protein >=300 mg/dL (NEGATIVE) 09/14/17 14:35 Urine Glucose (UA) 250 mg/dL (NEGATIVE) H 09/14/17 14:35 Urine Ketones NEGATIVE mg/dL (NEGATIVE) 09/14/17 14:35 Urine Blood TRACE (NEGATIVE) 09/14/17 14:35 Urine Nitrate NEGATIVE (NEGATIVE) 09/14/17 14:35 Urine Bilirubin NEGATIVE (NEGATIVE) 09/14/17 14:35 Urine Urobilinogen 0.2 E.U./dL (0.2 - 1.0) 09/14/17 14:35 Ur Leukocyte Esterase NEGATIVE (NEGATIVE) 09/14/17 14:35 Urine RBC 0-2 /hpf (0-5) 09/14/17 14:35 Urine WBC 0-2 /hpf (0-5) 09/14/17 14:35 Ur Epithelial Cells MODERATE /lpf (FEW) 09/14/17 14:35 Urine Bacteria NONE SEEN /hpf (NONE SEEN) 09/14/17 14:35 - Physical Exam Vitals and I&O: Vital Signs Temp 98.3 F 09/15/17 05:00 Pulse 75 09/15/17 10:31 Resp 18 09/15/17 11:01 BP 145/69 09/15/17 10:31 Pulse Ox 99 09/15/17 05:00 Intake & Output 09/14/17 09/15/17 09/15/17 18:59 06:59 18:59 Intake Total 150 Output Total 1500 Balance -1350 Weight (lbs) 92.533 kg Intake: Oral 150 Output: Hemodialysis 1500 Other: # Voids 3 # Bowel Movements 0 Stool Characteristics Soft Soft Soft Formed Formed Formed Weight Source Bedscale Active Medications: Current Medications Acetaminophen (Tylenol) 650 mg PO Q4HR PRN PRN Reason: Pain (Mild) Stop: 11/12/17 23:40 Last Admin: 09/14/17 14:18 Dose: 650 mg Acetaminophen/Hydrocodone Bitart ([place] 5mg/325mg) 1 tab PO Q6H PRN PRN Reason: Pain (Severe) Stop: 11/12/17 23:48 Last Admin: 09/14/17 06:39 Dose: 1 tab Albuterol/Ipratropium (Duoneb Neb) 3 ml HHN Q4HRT PRN PRN Reason: Wheezing Stop: 11/13/17 10:17 Albuterol/Ipratropium (Duoneb Neb) 3 ml HHN Q4HRT [facility] Stop: 11/13/17 10:59 Last Admin: 09/15/17 07:16 Dose: Not Given Allopurinol (Zyloprim) 100 mg PO DAILY [facility] Stop: 11/13/17 08:59 Last Admin: 09/15/17 09:33 Dose: 100 mg Alprazolam (Xanax) 0.5 mg PO MWF [facility] PRN Reason: Protocol Stop: 11/14/17 08:59 Last Admin: 09/15/17 09:33 Dose: 0.5 mg Alprazolam (Xanax) 1 mg PO DAILY PRN PRN Reason: Anxiety Amlodipine Besylate (Norvasc) 10 mg PO DAILY [facility] Stop: 11/14/17 08:59 Last Admin: 09/15/17 10:31 Dose: 10 mg Aspirin (Ecotrin) 81 mg PO DAILY [facility] Stop: 11/13/17 08:59 Last Admin: 09/15/17 09:34 Dose: 81 mg Atorvastatin Calcium (Lipitor) 20 mg PO DAILY [facility] PRN Reason: Protocol Stop: 11/14/17 08:59 Last Admin: 09/15/17 10:31 Dose: 20 mg Docusate Sodium (Colace) 100 mg PO DAILY [facility] Stop: 11/13/17 08:59 Last Admin: 09/15/17 09:34 Dose: 100 mg Dorzolamide HCl (Trusopt 2% Oph Soln) 1 drop EACH EYE Q12H [facility] Stop: 11/12/17 23:44 Last Admin: 09/15/17 11:33 Dose: 1 drop Escitalopram Oxalate (Lexapro) 5 mg PO DAILY [facility] PRN Reason: Protocol Stop: 11/13/17 08:59 Last Admin: 09/15/17 09:34 Dose: 5 mg Heparin Sodium (Porcine) (Heparin Sodium) 0 units HD UD [facility] Stop: 09/16/17 00:00 Last Admin: 09/15/17 01:32 Dose: Not Given Ceftriaxone Sodium 1 gm/ (Sodium Chloride) 50 mls @ 100 mls/hr IV Q24HR [facility] Stop: 11/13/17 09:59 Last Admin: 09/15/17 11:32 Dose: Not Given Albumin Human (Albuminar 25%) 25 gm in 100 mls @ 50 mls/hr IV UD PRN PRN Reason: BP Support During HD Stop: 09/15/17 23:59 Insulin Aspart (Novolog Insulin Sliding Scale) 0 units SUBQ BIDAC [facility] PRN Reason: Protocol Stop: 11/13/17 07:29 Last Admin: 09/15/17 08:46 Dose: Not Given Insulin Detemir (Levemir Insulin) 24 units SUBQ QAM [facility] PRN Reason: Protocol Stop: 11/13/17 08:59 Last Admin: 09/15/17 09:42 Dose: 24 unit Levothyroxine Sodium (Synthroid) 0.15 mg PO QDAC [facility] Stop: 11/13/17 07:29 Last Admin: 09/15/17 09:33 Dose: 0.15 mg Lorazepam (Ativan) 1 mg PO Q4H PRN; Protocol PRN Reason: Agitation Stop: 11/13/17 23:38 Lorazepam (Ativan) 1 mg IM Q4HR PRN; Protocol PRN Reason: Agitation Stop: 11/14/17 08:50 Metoprolol Tartrate (Lopressor) 50 mg PO BID [facility] Stop: 11/12/17 23:44 Last Admin: 09/15/17 09:35 Dose: 50 mg Miscellaneous (Clinical Monitoring) 1 ea MC DAILY PRN PRN Reason: RENAL Stop: 11/14/17 08:32 Prednisolone Acetate (Pred Forte 1% Ophth Susp) 1 drop LEFT EYE BID [facility] Stop: 11/12/17 23:44 Last Admin: 09/15/17 09:35 Dose: 1 drop Quetiapine Fumarate (Seroquel) 12.5 mg PO DAILY [facility] PRN Reason: Protocol Stop: 11/13/17 08:59 Last Admin: 09/15/17 09:35 Dose: 12.5 mg Quetiapine Fumarate (Seroquel) 37.5 mg PO HS [facility] PRN Reason: Protocol Stop: 11/13/17 20:59 Last Admin: 09/14/17 23:09 Dose: Not Given Sevelamer Carbonate (Renvela) 2,400 mg PO TID [facility] Stop: 11/12/17 23:44 Last Admin: 09/15/17 09:36 Dose: 2,400 mg Sodium Bicarbonate (Sodium Bicarbonate) 650 mg PO BID [facility] PRN Reason: Protocol Stop: 11/12/17 23:44 Last Admin: 09/15/17 09:37 Dose: 650 mg Vitamin B Complex/Vit C/Folic Acid (Vitamin B Complex W/Vitamin C) 1 tab PO DAILY [facility] Stop: 11/13/17 08:59 Last Admin: 09/15/17 09:36 Dose: 1 tab General: Mild distress HEENT: Atraumatic, Mucous membr. moist/pink Neck: Supple, +2 carotid pulse wo bruit Cardiovascular: Regular rate, Normal S1, Normal S2 Lungs: Clear to auscultation Abdomen: Bowel sounds, Soft Extremities: no Edema Neurological: Sensation intact Skin: no Rash Psych/Mental Status: Mood NL - Procedures Procedures: Procedures Procedure Code Date PERFORMANCE OF URINARY FILTRATION, <6 HRS/DAY [id number] 07/08/17 Assessment/Plan - Problem List Patient Problems: All Active Problems GENERALIZED WEAKNESS (Acute) - Assessment Assessment: ESRD on HD Gen weakness 2/2 Uremia Hypothyroidsism Psychosis Bipolar Disorder Ess Htn T2DM - Plan Plan: Lab - Result Diagrams 09/14/17 17:50 09/14/17 17:50 Current Medications Acetaminophen (Tylenol) 650 mg PO Q4HR PRN PRN Reason: Pain (Mild) Stop: 11/12/17 23:40 Last Admin: 09/14/17 14:18 Dose: 650 mg Acetaminophen/Hydrocodone Bitart ([place] 5mg/325mg) 1 tab PO Q6H PRN PRN Reason: Pain (Severe) Stop: 11/12/17 23:48 Last Admin: 09/14/17 06:39 Dose: 1 tab Albuterol/Ipratropium (Duoneb Neb) 3 ml HHN Q4HRT PRN PRN Reason: Wheezing Stop: 11/13/17 10:17 Albuterol/Ipratropium (Duoneb Neb) 3 ml HHN Q4HRT [facility] Stop: 11/13/17 10:59 Last Admin: 09/15/17 07:16 Dose: Not Given Allopurinol (Zyloprim) 100 mg PO DAILY [facility] Stop: 11/13/17 08:59 Last Admin: 09/15/17 09:33 Dose: 100 mg Alprazolam (Xanax) 0.5 mg PO MWF [facility] PRN Reason: Protocol Stop: 11/14/17 08:59 Last Admin: 09/15/17 09:33 Dose: 0.5 mg Alprazolam (Xanax) 1 mg PO DAILY PRN PRN Reason: Anxiety Amlodipine Besylate (Norvasc) 10 mg PO DAILY [facility] Stop: 11/14/17 08:59 Last Admin: 09/15/17 10:31 Dose: 10 mg Aspirin (Ecotrin) 81 mg PO DAILY [facility] Stop: 11/13/17 08:59 Last Admin: 09/15/17 09:34 Dose: 81 mg Atorvastatin Calcium (Lipitor) 20 mg PO DAILY [facility] PRN Reason: Protocol Stop: 11/14/17 08:59 Last Admin: 09/15/17 10:31 Dose: 20 mg Docusate Sodium (Colace) 100 mg PO DAILY [facility] Stop: 11/13/17 08:59 Last Admin: 09/15/17 09:34 Dose: 100 mg Dorzolamide HCl (Trusopt 2% Ophth Soln) 1 drop EACH EYE Q12H [facility] Stop: 11/12/17 23:44 Last Admin: 09/15/17 11:33 Dose: 1 drop Escitalopram Oxalate (Lexapro) 5 mg PO DAILY [facility] PRN Reason: Protocol Stop: 11/13/17 08:59 Last Admin: 09/15/17 09:34 Dose: 5 mg Heparin Sodium (Porcine) (Heparin Sodium) 0 units HD UD [facility] Stop: 09/16/17 00:00 Last Admin: 09/15/17 01:32 Dose: Not Given Ceftriaxone Sodium 1 gm/ (Sodium Chloride) 50 mls @ 100 mls/hr IV Q24HR [facility] Stop: 11/13/17 09:59 Last Admin: 09/15/17 11:32 Dose: Not Given Albumin Human (Albuminar 25%) 25 gm in 100 mls @ 50 mls/hr IV UD PRN PRN Reason: BP Support During HD Stop: 09/15/17 23:59 Insulin Aspart (Novolog Insulin Sliding Scale) 0 units SUBQ BIDAC [facility] PRN Reason: Protocol Stop: 11/13/17 07:29 Last Admin: 09/15/17 08:46 Dose: Not Given Insulin Detemir (Levemir Insulin) 24 units SUBQ QAM [facility] PRN Reason: Protocol Stop: 11/13/17 08:59 Last Admin: 09/15/17 09:42 Dose: 24 unit Levothyroxine Sodium (Synthroid) 0.15 mg PO QDAC [facility] Stop: 11/13/17 07:29 Last Admin: 09/15/17 09:33 Dose: 0.15 mg Lorazepam (Ativan) 1 mg PO Q4H PRN; Protocol PRN Reason: Agitation Stop: 11/13/17 23:38 Lorazepam (Ativan) 1 mg IM Q4HR PRN; Protocol PRN Reason: Agitation Stop: 11/14/17 08:50 Metoprolol Tartrate (Lopressor) 50 mg PO BID [facility] Stop: 11/12/17 23:44 Last Admin: 09/15/17 09:35 Dose: 50 mg Miscellaneous (Clinical Monitoring) 1 ea MC DAILY PRN PRN Reason: RENAL Stop: 11/14/17 08:32 Prednisolone Acetate (Pred Forte 1% Ophth Susp) 1 drop LEFT EYE BID [facility] Stop: 11/12/17 23:44 Last Admin: 09/15/17 09:35 Dose: 1 drop Quetiapine Fumarate (Seroquel) 12.5 mg PO DAILY [facility] PRN Reason: Protocol Stop: 11/13/17 08:59 Last Admin: 09/15/17 09:35 Dose: 12.5 mg Quetiapine Fumarate (Seroquel) 37.5 mg PO HS [facility] PRN Reason: Protocol Stop: 11/13/17 20:59 Last Admin: 09/14/17 23:09 Dose: Not Given Sevelamer Carbonate (Renvela) 2,400 mg PO TID [facility] Stop: 11/12/17 23:44 Last Admin: 09/15/17 09:36 Dose: 2,400 mg Sodium Bicarbonate (Sodium Bicarbonate) 650 mg PO BID [facility] PRN Reason: Protocol Stop: 11/12/17 23:44 Last Admin: 09/15/17 09:37 Dose: 650 mg Vitamin B Complex/Vit C/Folic Acid (Vitamin B Complex W/Vitamin C) 1 tab PO DAILY [facility] Stop: 11/13/17 08:59 Last Admin: 09/15/17 09:36 Dose: 1 tab Lab - Result Diagrams 09/14/17 17:50 09/14/17 17:50 pt. became restless during dialysis even w/ sedative reschedule again in am Nutritional Asmnt/Malnutr-PDOC - Dietary Evaluation Malnutrition Findings (Please click <Entered> for more info): Nutritional Asmnt/Malnutrition Start: 09/14/17 12: 20 Text: Status: Complete Freq: Document 09/14/17 12:20 MICHAEL (Rec: 09/14/17 12:32 MICHAEL [id number]) Nutritional Asmnt/Malnutrition Patient General Information Nutritional Screening High Risk Diagnosis weakness, noncomplaince with dialysis, ESRD Pertinent Medical Hx/Surgical Hx CHF, DM, renal failure, generlized muscle weakness, unsteady gait, HTN, chronic anemia, bipolar, depression, anxiety, glaucoma, idiopathic gout, shunt placement Subjective Information Pt seen sleeping at time of visit. Atempted to wake up pt. Spoke with PATTERN RULER, PATTERN RULER reported pt eats well this morning. Per EMR, pt consumed 75% of breakfast this morning. Per nurse, pt is refusing everything. Current Diet Order/ Nutrition Support low sodium Pertinent Medications colace, novolog, levemir, synthorid, seroquel, renvela, vitamin B complex/vit C/folic acid Pertinent Labs 09/13 na 134, K 5.0, cl 99, BUN 59, Cr 5.4, glucose 193, POC 216 Nutritional Hx/Data Height 1.6 m Height (Calculated Centimeters) 160.0 Current Weight (lbs) 92.533 kg Weight (Calculated Kilograms) 92.5 Weight (Calculated Grams) 88411.8 [place] Body Weight 115 % [place] Body Weight 177 Body Mass Index (BMI) 36.1 Weight Status Obese GI Symptoms GI Symptoms None Last BM 09/12 x 4 Difficult in: None Skin Integrity/Comment: abrasion reddened to right chest Current %PO Good (75-100%) Estimated Nutritional Goals BEE in Kcals: Adj wt of IBW Calories/Kcals/Kg 30-35 adj 62g Kcals Calculated [id number] Protein: Adj wt of IBW Protein g/k.2-1.4 if back on dialysis Protein Calculated 74-87 Fluid: ml 1860-2170ml (1ml/kcal) Nutritional Problem 1. Problem Problem altered nutrition related labs Etiology ESRD and noncompliance with dialysis, hx of DM Signs/Symptoms: BUN 59, Cr 5.4, glucose 193, POC 216 Malnutrition Alert Protein-Calorie Malnutrition N/A Is there a minimum of two criteria No selected? Query Text:Check all the applicable criteria. A minimum of two criteria are recommended for diagnosis of either severe or non-severe malnutrition. Intervention/Recommendation Comments 1. Recommend renal diet considering elevated BUN/Cr. RN notified. 2. Monitor PO intake, wt, labs and skin integrity 3. F/U as high risk in 2-3 days, 09/16-09/17 Expected Outcomes/Goals Expected Outcomes/Goals 1. PO intake to meet at least 75% of nutritional needs. 2. Wt stability, skin to remain intact, labs to approach WNL.
[2017-09-15] MEDS: Hydrocodone/APAP 5mg/325mg Tab PO PRN (21:05)
[2017-09-16] MEDS: Albuterol/Ipratropium Neb 3 ML AERS HHN SCH ×4 (02:53→14:35)
[2017-09-16 06:45] LABS: % BASOPHILS 0.6 % (0.0-2.0); % EOSINOPHILS 7.1 % (0.0-5.0); % LYMPHOCYTES 27.8 % (20.0-50.0); % MONOCYTES 12.9 % (2.0-10.0); % NEUTROPHILS 51.6 % (40.0-80.0); EOSINOPHILE ABSOLUTE 0.5 Th/cmm (0.1-0.4); HEMATOCRIT 25.7 % (41.0-60); HEMOGLOBIN 8.5 gm/dL (12-16); LYMPHOCYTE ABSOLUTE 1.9 Th/cmm (1.5-3.0); MEAN CELL VOLUME 93.4 fl (81-100); MEAN CORPUSCULAR HEMOGLOBIN 30.9 pg (27.0-31.0); MEAN CORPUSCULAR HGB CONC 33.1 pg (28.0-36.0); MONOCYTE ABSOLUTE 0.9 Th/cmm (0.3-1.0); NEUTROPHILE ABSOLUTE 3.6 Th/cmm (1.8-8.0); PLATELET COUNT 204 Th/cmm (150-400); RED BLOOD COUNT 2.75 Mil/cmm (3.80-5.10); RED CELL DISTRIBUTION WIDTH 14.6 % (11.5-20.0); WHITE BLOOD COUNT 6.9 Th/cmm (4.8-10.8)
[2017-09-16] MEDS: Levothyroxine 0.075 Mg Tab PO SCH (06:48)
[2017-09-16 06:56] LABS: ANION GAP 12.8 (7.0-16.0); CALCIUM SERUM 8.4 mg/dL (8.6-10.3); CARBON DIOXIDE 26.9 mEq/L (21.0-31.0); GFR AFRICAN-AMERICAN 10.3 ml/min (>90); GFR NON AFRICAN-AMERICAN 8.5 ml/min; POTASSIUM SERUM 4.7 mEq/L (3.5-5.1)
[2017-09-16 07:04] LABS: CREATININE - SERUM 5.4 mg/dL (0.6-1.2)
[2017-09-16] MEDS: INSULIN ASPART SLIDING SCALE 100 UNITS/ML UNIT SUBQ SCH ×2 (07:54→17:05)
[2017-09-16] MEDS: Escitalopram Oxalate 5 mg Tab PO SCH (08:40)
[2017-09-16] MEDS: Vitamin B Complex w/Vitamin C Tab PO SCH (08:40)
[2017-09-16] MEDS: Atorvastatin Calcium 10 MG TAB PO SCH (08:41)
[2017-09-16] MEDS: Insulin Detemir 100 units/mL 10mL Vial SUBQ SCH (08:42)
[2017-09-16] MEDS: Prednisolone 1% Ophth Susp 5 mL Bottle LEFT EYE SCH ×2 (09:42→17:03)
[2017-09-16] MEDS: cefTRIAXone 1 GM in Sodium Chloride 0.9% 50 ML IV SCH (11:49)
[2017-09-16 12:39] LABS: PHOSPHOROUS 4.3 mg/dL (2.5-5.0); URIC ACID 4.3 mg/dL (2.3-6.6)
--- NOTE | 2017-09-16 14:55 | General Progress Note ---
Subjective - Review of Systems Service Date: 09/16/17 Subjective: awake, still w/ periods of agitation, irritated Objective - Results Result Diagrams: 09/16/17 06:00 09/16/17 06:00 Recent Labs: Laboratory Last Values WBC 6.9 Th/cmm (4.8-10.8) 09/16/17 06:00 RBC 2.75 Mil/cmm (3.80-5.10) L 09/16/17 06:00 Hgb 8.5 gm/dL (12-16) L 09/16/17 06:00 Hct 25.7 % (41.0-60) L 09/16/17 06:00 MCV 93.4 fl (81-100) 09/16/17 06:00 MCH 30.9 pg (27.0-31.0) 09/16/17 06:00 MCHC Differential 33.1 pg (28.0-36.0) 09/16/17 06:00 RDW 14.6 % (11.5-20.0) 09/16/17 06:00 Plt Count 204 Th/cmm (150-400) 09/16/17 06:00 MPV 8.0 fl 09/16/17 06:00 Neutrophils % 51.6 % (40.0-80.0) 09/16/17 06:00 Lymphocytes % 27.8 % (20.0-50.0) 09/16/17 06:00 Monocytes % 12.9 % (2.0-10.0) H 09/16/17 06:00 Eosinophils % 7.1 % (0.0-5.0) H 09/16/17 06:00 Basophils % 0.6 % (0.0-2.0) 09/16/17 06:00 Sodium 134 mEq/L (136-145) L 09/16/17 06:00 Potassium 4.7 mEq/L (3.5-5.1) 09/16/17 06:00 Chloride 99 mEq/L (98-107) 09/16/17 06:00 Carbon Dioxide 26.9 mEq/L (21.0-31.0) 09/16/17 06:00 Anion Gap 12.8 (7.0-16.0) 09/16/17 06:00 BUN 57 mg/dL (7-25) H 09/16/17 06:00 Creatinine 5.4 mg/dL (0.6-1.2) H* 09/16/17 06:00 Est GFR ( Amer) 10.3 ml/min (>90) 09/16/17 06:00 Est GFR (Non-Af Amer) 8.5 ml/min 09/16/17 06:00 BUN/Creatinine Ratio 10.6 09/16/17 06:00 Glucose 226 mg/dL (70-105) H 09/16/17 06:00 POC Glucose 286 MG/DL (70 - 105) H 09/16/17 11:44 Hemoglobin A1c % 7.6 % (4.0-6.0) H 09/13/17 19:25 Uric Acid 4.3 mg/dL (2.3-6.6) 09/16/17 06:00 Calcium 8.4 mg/dL (8.6-10.3) L 09/16/17 06:00 Phosphorus 4.3 mg/dL (2.5-5.0) 09/16/17 06:00 Magnesium 2.0 mg/dL (1.9-2.7) 09/16/17 06:00 Total Bilirubin 0.4 mg/dL (0.3-1.0) 09/14/17 17:50 AST 14 U/L (13-39) 09/14/17 17:50 ALT 13 U/L (7-52) 09/14/17 17:50 Alkaline Phosphatase 158 U/L (34-104) H 09/14/17 17:50 Troponin I 0.02 ng/mL (0.01-0.05) 09/13/17 19:25 B-Natriuretic Peptide 726.0 pg/mL (5.0-100.0) H 09/13/17 19:25 Total Protein 5.9 gm/dL (6.0-8.3) L 09/14/17 17:50 Albumin 3.5 gm/dL (3.7-5.3) L 09/14/17 17:50 Globulin 2.4 gm/dL 09/14/17 17:50 Albumin/Globulin Ratio 1.5 (1.0-1.8) 09/14/17 17:50 Triglycerides 173 mg/dL (<150) H 09/14/17 17:50 Cholesterol 134 mg/dL (<200) 09/14/17 17:50 LDL Cholesterol Direct 61 mg/dL (75-193) L 09/14/17 17:50 HDL Cholesterol 33 mg/dL (23-92) 09/14/17 17:50 TSH 2.12 uIU/ml (0.34-5.60) 09/14/17 17:50 Urine Source RANDOM 09/14/17 14:35 Urine Color YELLOW 09/14/17 14:35 Urine Clarity SLIGHTLY HAZY (CLEAR) 09/14/17 14:35 Urine pH 7.0 (4.6 - 8.0) 09/14/17 14:35 Ur Specific [place] 1.015 (1.005-1.030) 09/14/17 14:35 Urine Protein >=300 mg/dL (NEGATIVE) 09/14/17 14:35 Urine Glucose (UA) 250 mg/dL (NEGATIVE) H 09/14/17 14:35 Urine Ketones NEGATIVE mg/dL (NEGATIVE) 09/14/17 14:35 Urine Blood TRACE (NEGATIVE) 09/14/17 14:35 Urine Nitrate NEGATIVE (NEGATIVE) 09/14/17 14:35 Urine Bilirubin NEGATIVE (NEGATIVE) 09/14/17 14:35 Urine Urobilinogen 0.2 E.U./dL (0.2 - 1.0) 09/14/17 14:35 Ur Leukocyte Esterase NEGATIVE (NEGATIVE) 09/14/17 14:35 Urine RBC 0-2 /hpf (0-5) 09/14/17 14:35 Urine WBC 0-2 /hpf (0-5) 09/14/17 14:35 Ur Epithelial Cells MODERATE /lpf (FEW) 09/14/17 14:35 Urine Bacteria NONE SEEN /hpf (NONE SEEN) 09/14/17 14:35 - Physical Exam Vitals and I&O: Vital Signs Temp 98.3 F 09/16/17 13:00 Pulse 79 09/16/17 14:35 Resp 18 09/16/17 14:35 BP 126/77 09/16/17 13:00 Pulse Ox 97 09/16/17 14:35 Intake & Output 09/15/17 09/16/17 09/16/17 18:59 06:59 18:59 Intake Total 150 400 Output Total 1500 Balance -1350 400 Weight (lbs) 92.533 kg 92.896 kg Intake: Oral 150 400 Output: Hemodialysis 1500 Other: # Voids 3 2 # Bowel Movements 0 0 Stool Characteristics Soft Soft Formed Formed Weight Source Bedscale Bedscale Active Medications: Current Medications Acetaminophen (Tylenol) 650 mg PO Q4HR PRN PRN Reason: Pain (Mild) Stop: 11/12/17 23:40 Last Admin: 09/16/17 09:40 Dose: 650 mg Acetaminophen/Hydrocodone Bitart ([place] 5mg/325mg) 1 tab PO Q6H PRN PRN Reason: Pain (Severe) Stop: 11/12/17 23:48 Last Admin: 09/15/17 21:05 Dose: 1 tab Albuterol/Ipratropium (Duoneb Neb) 3 ml HHN Q4HRT PRN PRN Reason: Wheezing Stop: 11/13/17 10:17 Albuterol/Ipratropium (Duoneb Neb) 3 ml HHN Q4HRT [facility], [facility] Stop: 11/13/17 10:59 Last Admin: 09/16/17 14:35 Dose: Not Given Allopurinol (Zyloprim) 100 mg PO DAILY [facility], [facility]1983 Stop: 11/13/17 08:59 Last Admin: 09/16/17 08:41 Dose: 100 mg Alprazolam (Xanax) 0.5 mg PO MWF [facility], [facility]1983 PRN Reason: Protocol Stop: 11/14/17 08:59 Last Admin: 09/15/17 09:33 Dose: 0.5 mg Alprazolam (Xanax) 1 mg PO DAILY PRN PRN Reason: Anxiety Amlodipine Besylate (Norvasc) 10 mg PO DAILY [facility]1983 Stop: 11/14/17 08:59 Last Admin: 09/16/17 08:40 Dose: 10 mg Aspirin (Ecotrin) 81 mg PO DAILY [facility] Stop: 11/13/17 08:59 Last Admin: 09/16/17 08:40 Dose: 81 mg Atorvastatin Calcium (Lipitor) 20 mg PO DAILY [facility]1983 PRN Reason: Protocol Stop: 11/14/17 08:59 Last Admin: 09/16/17 08:41 Dose: 20 mg Docusate Sodium (Colace) 100 mg PO DAILY [facility] Stop: 11/13/17 08:59 Last Admin: 09/16/17 08:40 Dose: 100 mg Dorzolamide HCl (Trusopt 2% Ophth Soln) 1 drop EACH EYE Q12H [facility], [facility]1983 Stop: 11/12/17 23:44 Last Admin: 09/16/17 12:01 Dose: 1 drop Escitalopram Oxalate (Lexapro) 10 mg PO DAILY [facility] Stop: 11/15/17 13:59 Haloperidol (Haldol) 1 mg PO Q6HR SALOMÓN PRN Reason: Protocol Stop: 11/15/17 11:59 Last Admin: 09/16/17 13:19 Dose: 1 mg Ceftriaxone Sodium 1 gm/ (Sodium Chloride) 50 mls @ 100 mls/hr IV Q24HR [facility], [facility] Stop: 11/13/17 09:59 Last Admin: 09/16/17 11:49 Dose: Not Given Insulin Aspart (Novolog Insulin Sliding Scale) 0 units SUBQ BIDAC [facility]1983 PRN Reason: Protocol Stop: 11/13/17 07:29 Last Admin: 09/16/17 07:54 Dose: 4 units Insulin Detemir (Levemir Insulin) 24 units SUBQ QAM [facility]1983 PRN Reason: Protocol Stop: 11/13/17 08:59 Last Admin: 09/16/17 08:42 Dose: 24 unit Levofloxacin (Levaquin) 250 mg PO DAILY [facility]1983 Stop: 09/23/17 10:14 Last Admin: 09/16/17 12:01 Dose: 250 mg Levothyroxine Sodium (Synthroid) 0.15 mg PO QDAC [facility]1983 Stop: 11/13/17 07:29 Last Admin: 09/16/17 06:48 Dose: 0.15 mg Lorazepam (Ativan) 1 mg PO Q4H PRN; Protocol PRN Reason: Agitation Stop: 11/13/17 23:38 Lorazepam (Ativan) 1 mg IM Q4HR PRN; Protocol PRN Reason: Agitation Stop: 11/14/17 08:50 Metoprolol Tartrate (Lopressor) 50 mg PO BID [facility] Stop: 11/12/17 23:44 Last Admin: 09/16/17 08:42 Dose: 50 mg Miscellaneous (Clinical Monitoring) 1 ea MC DAILY PRN PRN Reason: RENAL Stop: 11/14/17 08:32 Prednisolone Acetate (Pred Forte 1% Ophth Susp) 1 drop LEFT EYE BID [facility]1983 Stop: 11/12/17 23:44 Last Admin: 09/16/17 09:42 Dose: 1 drop Quetiapine Fumarate (Seroquel) 12.5 mg PO DAILY SALOMÓN PRN Reason: Protocol Stop: 11/13/17 08:59 Last Admin: 09/16/17 08:42 Dose: 12.5 mg Quetiapine Fumarate (Seroquel) 37.5 mg PO HS SALOMÓN PRN Reason: Protocol Stop: 11/13/17 20:59 Last Admin: 09/15/17 21:05 Dose: 37.5 mg Sevelamer Carbonate (Renvela) 2,400 mg PO TID SALOMÓN Stop: 11/12/17 23:44 Last Admin: 09/16/17 13:12 Dose: 2,400 mg Sodium Bicarbonate (Sodium Bicarbonate) 650 mg PO BID SALOMÓN PRN Reason: Protocol Stop: 11/12/17 23:44 Last Admin: 09/16/17 08:39 Dose: 650 mg Vitamin B Complex/Vit C/Folic Acid (Vitamin B Complex W/Vitamin C) 1 tab PO DAILY SALOMÓN Stop: 11/13/17 08:59 Last Admin: 09/16/17 08:40 Dose: 1 tab General: Alert, Mild distress HEENT: Atraumatic, Mucous membr. moist/pink Neck: Supple, +2 carotid pulse wo bruit Cardiovascular: Regular rate, Normal S1, Normal S2 Lungs: Clear to auscultation Abdomen: Bowel sounds, Soft Extremities: no Edema Neurological: Sensation intact Skin: no Rash Psych/Mental Status: Mood NL - Procedures Procedures: Procedures Procedure Code Date PERFORMANCE OF URINARY FILTRATION, <6 HRS/DAY [id number] 07/08/17 Assessment/Plan - Problem List Patient Problems: All Active Problems GENERALIZED WEAKNESS (Acute) - Assessment Assessment: ESRD on HD Gen weakness 2/2 Uremia Hypothyroidsism Psychosis worse Bipolar Disorder Ess Htn T2DM - Plan Plan: Lab - Result Diagrams 09/14/17 17:50 09/14/17 17:50 Current Medications Acetaminophen (Tylenol) 650 mg PO Q4HR PRN PRN Reason: Pain (Mild) Stop: 11/12/17 23:40 Last Admin: 09/14/17 14:18 Dose: 650 mg Acetaminophen/Hydrocodone Bitart ([place] 5mg/325mg) 1 tab PO Q6H PRN PRN Reason: Pain (Severe) Stop: 11/12/17 23:48 Last Admin: 09/14/17 06:39 Dose: 1 tab Albuterol/Ipratropium (Duoneb Neb) 3 ml HHN Q4HRT PRN PRN Reason: Wheezing Stop: 11/13/17 10:17 Albuterol/Ipratropium (Duoneb Neb) 3 ml HHN Q4HRT SALOM[place]N Stop: 11/13/17 10:59 Last Admin: 09/15/17 07:16 Dose: Not Given Allopurinol (Zyloprim) 100 mg PO DAILY SALOMÓN Stop: 11/13/17 08:59 Last Admin: 09/15/17 09:33 Dose: 100 mg Alprazolam (Xanax) 0.5 mg PO MWF [facility] PRN Reason: Protocol Stop: 11/14/17 08:59 Last Admin: 09/15/17 09:33 Dose: 0.5 mg Alprazolam (Xanax) 1 mg PO DAILY PRN PRN Reason: Anxiety Amlodipine Besylate (Norvasc) 10 mg PO DAILY [facility]1983 Stop: 11/14/17 08:59 Last Admin: 09/15/17 10:31 Dose: 10 mg Aspirin (Ecotrin) 81 mg PO DAILY SALOMÓN Stop: 11/13/17 08:59 Last Admin: 09/15/17 09:34 Dose: 81 mg Atorvastatin Calcium (Lipitor) 20 mg PO DAILY [facility]1983 PRN Reason: Protocol Stop: 11/14/17 08:59 Last Admin: 09/15/17 10:31 Dose: 20 mg Docusate Sodium (Colace) 100 mg PO DAILY [facility]1983 Stop: 11/13/17 08:59 Last Admin: 09/15/17 09:34 Dose: 100 mg Dorzolamide HCl (Trusopt 2% Oph Soln) 1 drop EACH EYE Q12H SALOMÓN Stop: 11/12/17 23:44 Last Admin: 09/15/17 11:33 Dose: 1 drop Escitalopram Oxalate (Lexapro) 5 mg PO DAILY [facility]1983 PRN Reason: Protocol Stop: 11/13/17 08:59 Last Admin: 09/15/17 09:34 Dose: 5 mg Heparin Sodium (Porcine) (Heparin Sodium) 0 units HD UD SALOMÓN Stop: 09/16/17 00:00 Last Admin: 09/15/17 01:32 Dose: Not Given Ceftriaxone Sodium 1 gm/ (Sodium Chloride) 50 mls @ 100 mls/hr IV Q24HR SALOMÓN Stop: 11/13/17 09:59 Last Admin: 09/15/17 11:32 Dose: Not Given Albumin Human (Albuminar 25%) 25 gm in 100 mls @ 50 mls/hr IV UD PRN PRN Reason: BP Support During HD Stop: 09/15/17 23:59 Insulin Aspart (Novolog Insulin Sliding Scale) 0 units SUBQ BIDAC SALOMÓN PRN Reason: Protocol Stop: 11/13/17 07:29 Last Admin: 09/15/17 08:46 Dose: Not Given Insulin Detemir (Levemir Insulin) 24 units SUBQ QAM [place]OM[place]N PRN Reason: Protocol Stop: 11/13/17 08:59 Last Admin: 09/15/17 09:42 Dose: 24 unit Levothyroxine Sodium (Synthroid) 0.15 mg PO QDAC [facility]1983 Stop: 11/13/17 07:29 Last Admin: 09/15/17 09:33 Dose: 0.15 mg Lorazepam (Ativan) 1 mg PO Q4H PRN; Protocol PRN Reason: Agitation Stop: 11/13/17 23:38 Lorazepam (Ativan) 1 mg IM Q4HR PRN; Protocol PRN Reason: Agitation Stop: 11/14/17 08:50 Metoprolol Tartrate (Lopressor) 50 mg PO BID [facility]1983 Stop: 11/12/17 23:44 Last Admin: 09/15/17 09:35 Dose: 50 mg Miscellaneous (Clinical Monitoring) 1 ea MC DAILY PRN PRN Reason: RENAL Stop: 11/14/17 08:32 Prednisolone Acetate (Pred Forte 1% Ophth Susp) 1 drop LEFT EYE BID [facility]1983 Stop: 11/12/17 23:44 Last Admin: 09/15/17 09:35 Dose: 1 drop Quetiapine Fumarate (Seroquel) 12.5 mg PO DAILY SALOMÓN PRN Reason: Protocol Stop: 11/13/17 08:59 Last Admin: 09/15/17 09:35 Dose: 12.5 mg Quetiapine Fumarate (Seroquel) 37.5 mg PO HS SALOMÓN PRN Reason: Protocol Stop: 11/13/17 20:59 Last Admin: 09/14/17 23:09 Dose: Not Given Sevelamer Carbonate (Renvela) 2,400 mg PO TID [facility] Stop: 11/12/17 23:44 Last Admin: 09/15/17 09:36 Dose: 2,400 mg Sodium Bicarbonate (Sodium Bicarbonate) 650 mg PO BID SALOMÓN PRN Reason: Protocol Stop: 11/12/17 23:44 Last Admin: 09/15/17 09:37 Dose: 650 mg Vitamin B Complex/Vit C/Folic Acid (Vitamin B Complex W/Vitamin C) 1 tab PO DAILY SALOMÓN Stop: 11/13/17 08:59 Last Admin: 09/15/17 09:36 Dose: 1 tab Lab - Result Diagrams 09/16/17 06:00 09/16/17 06:00 currently being dialyzed but very restless, agitated, irritable, uncooperative 1st refused BP, now removing needles danger to self & dialysis nurse terminate dialysis Nutritional Asmnt/Malnutr-PDOC - Dietary Evaluation Malnutrition Findings (Please click <Entered> for more info): Nutritional Asmnt/Malnutrition Start: 09/14/17 12: 20 Text: Status: Complete Freq: Document 09/14/17 12:20 MICHAEL (Rec: 09/14/17 12:32 MICHAEL [id number]) Nutritional Asmnt/Malnutrition Patient General Information Nutritional Screening High Risk Diagnosis weakness, noncomplaince with dialysis, ESRD Pertinent Medical Hx/Surgical Hx CHF, DM, renal failure, generlized muscle weakness, unsteady gait, HTN, chronic anemia, bipolar, depression, anxiety, glaucoma, idiopathic gout, shunt placement Subjective Information Pt seen sleeping at time of visit. Atempted to wake up pt. Spoke with FLATCAR WHACKER, FLATCAR WHACKER reported pt eats well this morning. Per EMR, pt consumed 75% of breakfast this morning. Per nurse, pt is refusing everything. Current Diet Order/ Nutrition Support low sodium Pertinent Medications colace, novolog, levemir, synthorid, seroquel, renvela, vitamin B complex/vit C/folic acid Pertinent Labs 09/13 na 134, K 5.0, cl 99, BUN 59, Cr 5.4, glucose 193, POC 216 Nutritional Hx/Data Height 1.6 m Height (Calculated Centimeters) 160.0 Current Weight (lbs) 92.533 kg Weight (Calculated Kilograms) 92.5 Weight (Calculated Grams) 71891.8 Astor Body Weight 115 % Astor Body Weight 177 Body Mass Index (BMI) 36.1 Weight Status Obese GI Symptoms GI Symptoms None Last BM 09/12 x 4 Difficult in: None Skin Integrity/Comment: abrasion reddened to right chest Current %PO Good (75-100%) Estimated Nutritional Goals BEE in Kcals: Adj wt of IBW Calories/Kcals/Kg 30-35 adj 62g Kcals Calculated 3496-7394 Protein: Adj wt of IBW Protein g/k.2-1.4 if back on dialysis Protein Calculated 74-87 Fluid: ml 1860-2170ml (1ml/kcal) Nutritional Problem 1. Problem Problem altered nutrition related labs Etiology ESRD and noncompliance with dialysis, hx of DM Signs/Symptoms: BUN 59, Cr 5.4, glucose 193, POC 216 Malnutrition Alert Protein-Calorie Malnutrition N/A Is there a minimum of two criteria No selected? Query Text:Check all the applicable criteria. A minimum of two criteria are recommended for diagnosis of either severe or non-severe malnutrition. Intervention/Recommendation Comments 1. Recommend renal diet considering elevated BUN/Cr. RN notified. 2. Monitor PO intake, wt, labs and skin integrity 3. F/U as high risk in 2-3 days, 09/16-09/17 Expected Outcomes/Goals Expected Outcomes/Goals 1. PO intake to meet at least 75% of nutritional needs. 2. Wt stability, skin to remain intact, labs to approach WNL.
--- NOTE | 2017-09-16 18:34 | Discharge Summary ---
DATE OF DISCHARGE: 09/16/2017 DATE OF DISCHARGE: 09/16/2017. ADMITTING DIAGNOSES: 1. Generalized weakness and tiredness. 2. Noncompliance with hemodialysis. 3. End-stage renal disease. 4. Low-grade fevers, rule out urinary tract infection versus developing infiltrates. 5. Acute psych decompensation with noncompliance. 6. Mild dyspnea. SECONDARY DIAGNOSES: Includes, 1. History of hypertension. 2. History of chronic anemia. 3. History of hyperlipidemia. 4. History of CAD/CHF. 5. History of gout. 6. History of schizophrenia. 7. History of end-stage renal disease. DISCHARGE DIAGNOSES: 1. Generalized weakness - improved. 2. Noncompliance with hemodialysis, improved-pt was agreeable and was hemodialsed. 3. Acute psychosis -- improved. Low-grade fevers resolved. 4. Mild dyspnea-improved. 5. Low grade fevers-resolved. CONSULTANTS: Sajan Baker M.D., Nephrology and Dr. Rolle for psych. MAJOR PROCEDURES: None. BRIEF HOSPITAL COURSE: The patient is a 62-year-old female that resides at [facility] with medical history significant for end-stage renal disease, hypertension, chronic anemia, hyperlipidemia, CAD, CHF, gout, schizophrenia, hypothyroidism, insulin-dependent diabetes who has been admitted to this facility in the past for similar episodes of generalized noncompliance and refusing to undergo hemodialysis. Apparently she [facility] and was complaining of generalized weakness, tiredness, and mild shortness of breath. She was transferred to the ED where pertinent findings included a low-grade temperature (100.0), BUN of 53 and a creatinine of 4.6. Chest x-ray showed low lung volumes with mild congestive changes. The patient was admitted to the telemetry red and was placed on IV antibiotics and was kept on her other medications as scheduled. She was seen by Nephrology and has received her hemodialysis as scheduled. However, she refused IV placement, but otherwise has been compliant with her medications. Mood sawyer, she appears to be stable showing no extreme psychotic behavior, but remains somewhat uncooperative. The patient was seen by Psych and was placed on Haldol p.r.n. on top of the other psych meds. Currently, she is stable, asymptomatic and as noted above, somewhat more compliant than when she came in. DISCHARGE MEDICATIONS: Tylenol 650 q. 4 hours p.r.n. for pain, allopurinol 100 t.i.d., Xanax 1 mg every day, Pro-Stat 30 mL every day, aspirin 81 every day, docusate sodium 100 every day, Trusopt eye drops q. 12 hours, Lexapro 5 every day, Nephro-Wei 1 mg every day, [place] 7.5/325 one tab q. 6 hours p.r.n. for severe pain, Levemir 24 units q.a.m. and Novolin insulin sliding scale per protocol, Synthroid 150 mcg every day, metoprolol 50 b.i.d., prednisolone eyedrops 0.1% one drop on the left eye, Seroquel 37.5 at bedtime and 12.5 every day, Sevelamer 2400 mg t.i.d., sodium bicarbonate 650 b.i.d., vitamin B complex every day. CONDITION ON DISCHARGE: Stable. DISPOSITION: The patient will be discharged back to [facility]. JOB# [id number] [email or web address]
--- NOTE | 2017-09-16 21:21 | Consultation ---
DATE OF CONSULTATION: 09/16/2017 PSYCHIATRIC CONSULTATION REQUESTING PHYSICIAN: Dr. Shrestha. REASON FOR CONSULTATION: Agitated behavior. HISTORY OF PRESENT ILLNESS: This patient is a 62-year-old woman, resident of a [facility], admitted here for refusal of treatment and agitated behavior. A psychiatric consultation is called to address the issue. Chart is reviewed. The patient is interviewed. The patient is having the treatment for her breathing problem with oxygen. The patient has been getting easily irritable and is also reported to be taking the dialysis as requested. The patient has been stating that she is not sick and there is no need for her medications. Review of the chart indicated that the patient has been on Seroquel and has been diagnosed to have bipolar disorder, major depression and also schizophrenia in the past. The patient at this time is denying any auditory hallucinations. No delusions are noted, stating that there is no reason for her to be on all these medications and she is okay. She states that her sleep is fine. Appetite is also noted to be fine. PAST PSYCHIATRIC HISTORY: The patient is carrying diagnoses of depression and bipolar disorder and schizophrenia and the patient is not endorsing to any of these problems. MEDICAL HISTORY: The patient has multiple medical problems such as the end-stage renal disease, hypertension, anemia, hyperlipidemia, coronary artery disease, congestive heart failure, hypothyroidism, and insulin-dependent diabetes mellitus. SOCIAL HISTORY: The patient is a resident of the [facility]. MENTAL STATUS EXAMINATION: Significant for the patient to be obese, cooperative. Eye contact is fair. Mood is irritable. Affect is constricted. Insight and judgment at this time are noted to be impaired. Impulse control is noted to be limited. The patient is screaming and yelling and stating that she should not be forced to take any medications. The patient is stating that the medication that she is getting is enough and she should not be put on too many medications. The patient is not presenting with any threats to harm self or others. DIAGNOSIS: At the time of the admission: AXIS I: Psychotic disorder, not otherwise specified. PLAN: To continue the patient with the Seroquel and then give the Ativan for her aggressive behavior on a p.r.n. basis. [facility]# [id number]
== END 2017-09-16 18:25 | DRG 70 ==
LOC: ER 17:41 → TELE 22:07 → MSI 09-14 06:34 → TELE 09-14 06:55 → MSI 09-15 14:22
PROVIDERS: ADMIT Internal Medicine; ATTEND Internal Medicine
PROC: 5A1D70Z Performance of Urinary Filtration, Intermittent, Less than 6 Hours Per Day (ICD-10-PCS; principal; 2017-09-16)
DX: G93.40 Encephalopathy, unspecified (principal); N18.6 End stage renal disease; I13.2 Hypertensive heart and chronic kidney disease with heart failure and with stage 5 chronic kidney disease, or end stage renal disease; F23 Brief psychotic disorder; F31.5 Bipolar disorder, current episode depressed, severe, with psychotic features; Z91.15 Patient's noncompliance with renal dialysis; Z99.2 Dependence on renal dialysis; I25.10 Atherosclerotic heart disease of native coronary artery without angina pectoris; E11.21 Type 2 diabetes mellitus with diabetic nephropathy; E78.5 Hyperlipidemia, unspecified; F41.9 Anxiety disorder, unspecified; H40.9 Unspecified glaucoma; I50.9 Heart failure, unspecified; E11.22 Type 2 diabetes mellitus with diabetic chronic kidney disease; Z53.29 Procedure and treatment not carried out because of patient's decision for other reasons; M10.9 Gout, unspecified; M10.00 Idiopathic gout, unspecified site; Z96.89 Presence of other specified functional implants; D63.1 Anemia in chronic kidney disease; E03.9 Hypothyroidism, unspecified; Z79.4 Long term (current) use of insulin; Z79.899 Other long term (current) drug therapy
CPT/HCPCS: 36415-UA; 71045-TC; 80048-TC; 80053-TC; 80061-TC; 81001-TC; 82948-90; 83036-90; 83735-TC; 83880-TC; 84100-TC; 84443-TC; 84484-TC; 84550-TC; 85025-TC; 90937; 93005; 94640; 94760; J0696; J1200; J1630; J1644; J1815; J2060; J2650; J7030; Z7610

== ENCOUNTER 2018-01-04 12:04 | Emergency (ER) | payer MEDICARE, MEDICAID ==
--- NOTE | 2018-01-04 12:57 | ED Physician Chart ---
ED Chief Complaint/HPI - Patient Information Date Seen:: 01/04/18 Time Seen:: 12:30 Chief Complaint:: vomiting History of Present Illness:: 62 yr old female with ESRD on hemo dialysiswith episodes of vomiting all day no fever or cough or chest pain no diarhea Allergies:: Allergies Allergy/AdvReac Type Severity Reaction Status Date / Time No Known Allergies Allergy Verified 08/07/17 10:05 Vitals:: Vital Signs - 8 hr 01/04/18 12:22 Temp 98.3 F HR 76 RR 16 BP 176/105 O2 Sat % 100 ED Review of Systems - Review of Systems General/Constitutional: No fever Head: Headache Eyes: No loss of vision ENT: No earache Neck: No neck pain Cardio Vascular: No chest pain Pulmonary: No SOB GI: Nausea, Vomiting Musculoskeletal: No bone or joint pain Endocrine: No polyuria Psychiatric: No prior psych history Neurological: No syncope ED Past Medical History - Past Medical History Past Medical History: HTN, ESRD Family Medical History - Family Member Mother History Unknown: Yes Ethnicity: Living Status: ED Physical Exam - Physical Examination Other Skin comments:: catheter hemo dialysis rt upper chest ED Assessment - Assessment General Assessment: esrd with vomiting ED Septic Shock - . Is Septic Shock (SBP<90, OR Lactate>4 mmol\L) present?: No - <6hrs of presentation: Vital Signs: Vital Signs - 8 hr 01/04/18 12:22 Temp 98.3 F HR 76 RR 16 BP 176/105 O2 Sat % 100 ED Reassessment (Disposition) - Diagnosis Diagnosis:: esrd vomiting labs ct abd ordered probable admisiion - Patient Disposition Discharge/Transfer:: Acute Care w/in this hosp
[2018-01-04 13:20] LABS: % BASOPHILS 0.8 % (0.0-2.0); % EOSINOPHILS 1.9 % (0.0-5.0); % LYMPHOCYTES 12.8 % (20.0-50.0); % MONOCYTES 3.3 % (2.0-10.0); % NEUTROPHILS 81.2 % (40.0-80.0); BASOPHILE ABSOLUTE 0.1 Th/cumm (0-0.2); EOSINOPHILE ABSOLUTE 0.2 Th/cmm (0.1-0.4); HEMATOCRIT 37.6 % (41.0-60); HEMOGLOBIN 12.5 gm/dL (12-16); LYMPHOCYTE ABSOLUTE 1.2 Th/cmm (1.5-3.0); MEAN CELL VOLUME 91.7 fl (81-100); MEAN CORPUSCULAR HEMOGLOBIN 30.6 pg (27.0-31.0); MEAN CORPUSCULAR HGB CONC 33.3 pg (28.0-36.0); MEAN PLATELET VOLUME 7.9 fl; MONOCYTE ABSOLUTE 0.3 Th/cmm (0.3-1.0); NEUTROPHILE ABSOLUTE 7.3 Th/cmm (1.8-8.0); PLATELET COUNT 309 Th/cmm (150-400); RED CELL DISTRIBUTION WIDTH 16.3 % (11.5-20.0); WHITE BLOOD COUNT 9.1 Th/cmm (4.8-10.8)
[2018-01-04 13:28] LABS: INR 0.93 (0.5-1.4); PROTHROMBIN TIME (TEST) 9.7 SECONDS (9.5-11.5)
[2018-01-04 13:33] LABS: ALB/GLOB RATIO 1.4 (1.0-1.8); ALBUMIN 3.9 gm/dL (3.7-5.3); ANION GAP 15.7 (7.0-16.0); BILIRUBIN,TOTAL 0.5 mg/dL (0.3-1.0); CALCIUM SERUM 9.5 mg/dL (8.6-10.3); CARBON DIOXIDE 24.4 mEq/L (21.0-31.0); GFR AFRICAN-AMERICAN 12.3 ml/min (>90); GFR NON AFRICAN-AMERICAN 10.2 ml/min; POTASSIUM SERUM 4.1 mEq/L (3.5-5.1); TOTAL PROTEIN,SERUM 6.6 gm/dL (6.0-8.3)
--- NOTE | 2018-01-04 14:09 | Diagnostic Imaging Report ---
CHEST X-RAY: AP view INDICATION: Shortness of breath COMPARISON: 09/13/2017 FINDINGS: Right dialysis catheter is seen with tip in the cavoatrial junction. No focal consolidation or effusions. Slight increased interstitial lung markings are noted. Mild cardiomegaly is noted. Degenerative changes of the spine are noted. Postsurgical changes of the left shoulder are noted. IMPRESSION: Slight increased interstitial lung markings. A marginal degree of congestion cannot be excluded. Please correlate clinically. Mild cardiomegaly.
--- NOTE | 2018-01-04 14:21 | Diagnostic Imaging Report ---
CT abdomen and pelvis without intravenous contrast Indication: Vomiting Comparison: None, Technique: Axial images were obtained from the lung bases to the bilateral proximal femurs without IV contrast. Coronal reconstructions were made. total DLP: 574 , CTDI11.2 FINDINGS: Hypoventilatory atelectatic changes of the lung bases are noted. Assessment of the solid organs is limited due to lack of IV contrast. A small pericardial effusion is noted. No evidence of focal hepatic lesions. The patient is status post cholecystectomy. Mildly prominent spleen is noted. No focal lesions. No focal pancreatic lesions. Pancreatic gland atrophy is noted. No focal adrenal lesions. Mild nonspecific perinephric inflammatory changes are noted. No evidence of hydronephrosis or focal renal lesions. Distended urinary bladder is noted. No appendicitis. Underdistention versus less likely mild bowel wall thickening of the splenic flexure and descending colon is noted. No evidence of bowel obstruction. There is minimal diverticulosis. No diverticulitis. No free air or free fluid. Uterine calcifications are noted likely degenerative. Moderate atherosclerosis is noted. There is a indeterminate probably chronic mild compression deformity of T12 with slight increased bony density. IMPRESSION: Bilateral perinephric inflammatory changes. No hydronephrosis. Please correlate clinically if there is concern for UTI Distended urinary bladder. Incomplete distention versus mild bowel wall thickening of the large bowel extending from the splenic flexure to the mid descending colon. Inflammatory/infectious process cannot be excluded. Minimal diverticulosis. No evidence of diverticulitis. Evidence of prior cholecystectomy Diffuse atherosclerotic vascular disease Age indeterminate, probable chronic compression deformity of T12 with increased sclerotic density noted noted. Findings are indeterminate but may be traumatic obtained etiology. Neoplastic etiology is considered less likely. Please correlate with patient's clinical history and old exams. If indicated short-term follow-up repeat examination or nuclear medicine bone scan may be helpful.
[2018-01-04 14:27] LABS: CREATININE - SERUM 4.6 mg/dL (0.6-1.2)
== END 2018-01-04 16:12 ==
LOC: ER 12:04
DX: I13.11 Hypertensive heart and chronic kidney disease without heart failure, with stage 5 chronic kidney disease, or end stage renal disease (principal); N18.6 End stage renal disease; Z99.2 Dependence on renal dialysis
CPT/HCPCS: 99285; 93005; 71045; 74176; 83880; 36415; 83605; 85025; 85610; 82150; 83036; 83690; 80053; 87081; 87040 ×2; Q0162

== ENCOUNTER 2018-02-10 10:43 | Inpatient (IN) | payer MEDICARE, MEDICAID ==
--- NOTE | 2018-02-10 11:06 | ED Physician Chart ---
ED Chief Complaint/HPI - Patient Information Date Seen:: 02/10/18 Time Seen:: 10:50 Chief Complaint:: Regis catheter replacement History of Present Illness:: Patient reportedly pulled out her Regis catheter at her [place] [facility] facility which the patient denies. Patient last received dialysis yesterday. She normally receives dialysis on Wednesday and Wednesday. Allergies:: Allergies Allergy/AdvReac Type Severity Reaction Status Date / Time No Known Allergies Allergy Verified 02/10/18 10:59 Historian:: Patient Review:: Transfer documents Reviewed ED Review of Systems - Review of Systems General/Constitutional: No fever, No chills, No weight loss, No weakness, No diaphoresis, No edema, No loss of appetite Skin: No skin lesions, No rash, No bruising Head: No headache, No light-headedness Eyes: No loss of vision, No pain, No diplopia ENT: No earache, No nasal drainage, No sore throat, No tinnitus Neck: No neck pain, No swelling, No thyromegaly, No stiffness, No mass noted Cardio Vascular: No chest pain, No palpitations, No PND, No orthopnea, No edema Pulmonary: No SOB, No cough, No sputum, No wheezing GI: No nausea, No vomiting, No diarrhea, No pain, No melena, No hematochezia, No constipation, No hematemesis G/U: No dysuria, No frequency, No hematuria Musculoskeletal: No bone or joint pain, No back pain, No muscle pain Endocrine: No polyuria, No polydipsia Psychiatric: No prior psych history, No depression, No anxiety, No suicidal ideation Hematopoietic: No bruising, No lymphadenopathy Allergic/Immuno: No urticaria, No angioedema Neurological: No syncope, No focal symptoms, No weakness, No paresthesia, No headache, No seizure, No dizziness, No confusion, No vertigo ED Past Medical History - Past Medical History Past Medical History: HTN, DM, CHF Family History: None, Other (patient states all other family members are ) Social History: Non Smoker, No Alcohol Surgical History: other (Regis cath and dialysis shunt) Psychiatricy History: Depression, Other (major depression) Medication: Reviewed Family Medical History - Family Member Mother History Unknown: Yes Ethnicity: Living Status: ED Physical Exam - Physical Examination General/Constitutional: Well-developed, well-nourished, Alert Other Gen/Cons comments:: Patient is confused; she does not know the month or the year Head: Atraumatic Eyes: Lids, conjuctiva normal, PERRL Other Skin comments:: Regis catheter site right superior chest ENMT: External ears, nose nl, Nasal exam nl, Oropharynx nl Other ENMT comments:: Upper teeth absent Neck: No nuchal rigidity Respiratory: Nl effort/Exclusion, Clear to Auscultation Cardio Vascular: RRR, No murmur, gallop, rubs, NL S1 S2 GI: No tenderness/rebounding/guarding, No organomegaly, No hernia : No CVA tenderness Other Extremities comments:: One out of 4 bilateral pretibial pitting edema Neuro/Psych: No focal deficits Misc: No paraspinal tenderness ED Labs/Radiology/EKG Results - Lab Results Results: Laboratory Results - last 24 hr 02/10/18 02/10/18 02/10/18 11:05 11:05 11:05 WBC 7.7 RBC 4.56 Hgb 13.4 Hct 41.1 MCV 90.0 MCH 29.3 MCHC Differential 32.6 RDW 14.3 Plt Count 244 MPV 7.9 Neutrophils % 61.7 Lymphocytes % 27.4 Monocytes % 7.3 Eosinophils % 3.4 Basophils % 0.2 PT 9.6 INR 0.92 PTT (Actin FS) 22.0 L Sodium 134 L Potassium 4.1 Chloride 95 L Carbon Dioxide 28.9 Anion Gap 14.2 BUN 25 Creatinine 4.4 H* Est GFR ( Amer) 13.0 Est GFR (Non-Af Amer) 10.7 BUN/Creatinine Ratio 5.7 Glucose 256 H Calcium 9.5 B-Natriuretic Peptide 02/10/18 11:05 WBC RBC Hgb Hct MCV MCH MCHC Differential RDW Plt Count MPV Neutrophils % Lymphocytes % Monocytes % Eosinophils % Basophils % PT INR PTT (Actin FS) Sodium Potassium Chloride Carbon Dioxide Anion Gap BUN Creatinine Est GFR ( Amer) Est GFR (Non-Af Amer) BUN/Creatinine Ratio Glucose Calcium B-Natriuretic Peptide 133.0 H - Radiology Results Results: Chest x-ray showed prominence of the aortic arch and was otherwise normal - EKG Interpretations Rate & Rhythm: normal sinus rhythm with a rate of 77 [place]: borderline left axis deviation ED Septic Shock - . Is Septic Shock (SBP<90, OR Lactate>4 mmol\L) present?: No ED Reassessment (Disposition) - Reassessment Reassessment Condition:: Unchanged - Patient Disposition Admitted to:: Med/Surg Spoke to:: Payal Shrestha Admitting Medical Physician:: Payal Shrestha Condition at Disposition:: Stable, Unchanged
[2018-02-10 11:11] LABS: % BASOPHILS 0.2 % (0.0-2.0); % EOSINOPHILS 3.4 % (0.0-5.0); % LYMPHOCYTES 27.4 % (20.0-50.0); % MONOCYTES 7.3 % (2.0-10.0); % NEUTROPHILS 61.7 % (40.0-80.0); EOSINOPHILE ABSOLUTE 0.3 Th/cmm (0.1-0.4); HEMATOCRIT 41.1 % (41.0-60); HEMOGLOBIN 13.4 gm/dL (12-16); LYMPHOCYTE ABSOLUTE 2.1 Th/cmm (1.5-3.0); MEAN CORPUSCULAR HEMOGLOBIN 29.3 pg (27.0-31.0); MEAN CORPUSCULAR HGB CONC 32.6 pg (28.0-36.0); MEAN PLATELET VOLUME 7.9 fl; MONOCYTE ABSOLUTE 0.6 Th/cmm (0.3-1.0); NEUTROPHILE ABSOLUTE 4.7 Th/cmm (1.8-8.0); PLATELET COUNT 244 Th/cmm (150-400); RED BLOOD COUNT 4.56 Mil/cmm (3.80-5.10); RED CELL DISTRIBUTION WIDTH 14.3 % (11.5-20.0); WHITE BLOOD COUNT 7.7 Th/cmm (4.8-10.8)
--- NOTE | 2018-02-10 11:18 | Diagnostic Imaging Report ---
CHEST X-RAY: AP view INDICATION: CHF COMPARISON: 01/04/2018 FINDINGS: Chronic lung changes are noted with left basal atelectasis versus scarring. No evidence of CHF. There is no focal consolidation or pleural effusions The heart is normal in size. Degenerative changes of the spine are noted. Postsurgical changes of the left shoulder are noted. IMPRESSION: Chronic lung changes with left basal subsegmental atelectasis versus scarring. No focal consolidation or evidence of CHF.
[2018-02-10 11:26] LABS: INR 0.92 (0.5-1.4); PROTHROMBIN TIME (TEST) 9.6 SECONDS (9.5-11.5)
[2018-02-10 11:27] LABS: ANION GAP 14.2 (7.0-16.0); CALCIUM SERUM 9.5 mg/dL (8.6-10.3); CARBON DIOXIDE 28.9 mEq/L (21.0-31.0); GFR NON AFRICAN-AMERICAN 10.7 ml/min; POTASSIUM SERUM 4.1 mEq/L (3.5-5.1)
[2018-02-10 11:38] LABS: CREATININE - SERUM 4.4 mg/dL (0.6-1.2)
[2018-02-11] MEDS ORDERED: Albumin 25% 25gm/100mL 25 GM/100 ML BTL IV PRN
[2018-02-11 07:17] LABS: % BASOPHILS 0.2 % (0.0-2.0); % EOSINOPHILS 4.3 % (0.0-5.0); % LYMPHOCYTES 29.3 % (20.0-50.0); % MONOCYTES 8.6 % (2.0-10.0); % NEUTROPHILS 57.6 % (40.0-80.0); EOSINOPHILE ABSOLUTE 0.4 Th/cmm (0.1-0.4); HEMATOCRIT 39.5 % (41.0-60); HEMOGLOBIN 13.2 gm/dL (12-16); LYMPHOCYTE ABSOLUTE 2.6 Th/cmm (1.5-3.0); MEAN CELL VOLUME 90.1 fl (81-100); MEAN CORPUSCULAR HGB CONC 33.3 pg (28.0-36.0); MEAN PLATELET VOLUME 7.9 fl; MONOCYTE ABSOLUTE 0.8 Th/cmm (0.3-1.0); NEUTROPHILE ABSOLUTE 5.1 Th/cmm (1.8-8.0); PLATELET COUNT 249 Th/cmm (150-400); RED BLOOD COUNT 4.38 Mil/cmm (3.80-5.10); WHITE BLOOD COUNT 8.9 Th/cmm (4.8-10.8)
[2018-02-11] MEDS ORDERED: VTE Chemical Prophylaxis Screen/Admission MC PRN (07:56)
[2018-02-11 08:00] LABS: INR 0.88 (0.5-1.4); PROTHROMBIN TIME (TEST) 9.3 SECONDS (9.5-11.5)
[2018-02-11] MEDS ORDERED: Influenza Vaccine (5 yr & older) 0.5 ml Syr IM ONE (10:00)
[2018-02-11] MEDS ORDERED: Hydrocodone/APAP 5mg/325mg Tab PO PRN (10:10)
[2018-02-11] MEDS ORDERED: Sodium Chloride 0.9% 250 ML IV ONE (10:15)
[2018-02-11 10:30] LABS: ALB/GLOB RATIO 1.5 (1.0-1.8); ALBUMIN 4.1 gm/dL (3.7-5.3); ANION GAP 15.4 (7.0-16.0); BILIRUBIN,TOTAL 0.5 mg/dL (0.3-1.0); CALCIUM SERUM 9.1 mg/dL (8.6-10.3); CARBON DIOXIDE 27.7 mEq/L (21.0-31.0); GFR AFRICAN-AMERICAN 10.7 ml/min (>90); GFR NON AFRICAN-AMERICAN 8.9 ml/min; POTASSIUM SERUM 4.1 mEq/L (3.5-5.1)
[2018-02-11 10:34] LABS: CREATININE - SERUM 5.2 mg/dL (0.6-1.2)
--- NOTE | 2018-02-11 10:40 | Consultation ---
DATE OF CONSULTATION: 02/11/2018 VASCULAR CONSULT REFERRING PHYSICIAN: Dr. Shrestha. REASON FOR CONSULTATION: Placement of Perm-A-Cath. Thank you for referring this patient to me. This is a 62-year-old female who was admitted following self-removal of Regis catheter in the right subclavian location by the patient. She has history of major depression. Other comorbidities include diabetes mellitus, hypertension and CHF. The patient is in half-way. She has had a placement of AV shunt in the left arm in about a week ago. A new one was placed in the right arm at [facility]. This is a patent, but waiting to develop. In view of the removal by the patient of the Regis catheter, new one needs to be placed, preferably Perm-A-Cath. Informed consent discussed with the patient's daughter who has power of consumer attorney, Lawson Zullyabi and possible complications associated with this procedure were discussed including bleeding, pneumothorax, infection, malfunctioning, etc was discussed with her and she understands. We will proceed with the procedure. JOB# [id number]
[2018-02-11] MEDS ORDERED: fentaNYL Citrate 100 mcg/2mL Vial ONE (10:52)
[2018-02-11] MEDS ORDERED: Midazolam 1mg/ml 2 ml vial IV ONE (10:53)
[2018-02-11] MEDS: Escitalopram Oxalate 5 mg Tab PO SCH (11:58)
[2018-02-11] MEDS: Vitamin B Complex w/Vitamin C Tab PO SCH (11:59)
--- NOTE | 2018-02-11 12:19 | History & Physical ---
ADMIT DATE: 02/11/2018 CHIEF COMPLAINT: Pulled Regis cath, end-stage renal disease. HISTORY OF PRESENT ILLNESS: The patient is a 62-year-old lady who resides at [facility]. Last admitted to this hospital on 09/14/2017with the following medical history -- end-stage renal disease, on hemodialysis; essential hypertension; chronic anemia; hyperlipidemia; CAD; CHF; gout; schizophrenia; depression; hypothyroidism; insulin-dependent diabetes--who apparently had an AV fistula placement at [facility] about a week or so ago. In the interim, the patient has been receiving hemodialysis via Regis cath, which apparently came out yesterday at the long term. It is not sure if the patient pulled it or the Regis or if the line came out accidentally, but given that she missed dialysis, the patient was referred to the ER for admission and replacement of the temporary dialysis catheter. She appears to be comfortable, but is a poor historian and unable to provide any major medical or is not able to provide any major history at this time. Pertinent findings on admission include a BUN and creatinine of 25/4.4. PAST MEDICAL HISTORY: As noted above. She also has a history of generalized muscle weakness and steady gait, major depressive disorder as noted above, anxiety disorder, glaucoma, and gout. PAST SURGICAL HISTORY: Include a recent shunt placement. FAMILY HISTORY: Noncontributory to this admission. SOCIAL HISTORY: No tobacco, ETOH or illicit drug usage. [facility]. ALLERGIES: NKDA. OUTPATIENT MEDICATIONS: Tylenol 650 q.4 p.r.n. for pain, allopurinol 100 t.i.d., Xanax 1.5 every day as needed for anxiety, Pro-Stat 30 mL every day, aspirin 81 every day, Lexapro 5 every day, folic acid 1 mg every day, [place] 5/325 q.6 p.r.n. for severe pain, insulin sliding scale, Levemir insulin 24 units in the morning, metoprolol 50 b.i.d., Zofran 4 mg q.12 p.r.n. for nausea, vomiting, vitamin B with folic acid 1 tab every day. REVIEW OF SYSTEMS: GENERAL: A good review of systems was unable to be done given patient's condition, but there is no mention of a recent weight loss or fever or chills. She denies any chest pain or palpitations. PULMONARY: No shortness of breath. No cough or phlegm production. GASTROINTESTINAL: No bowel habit changes. GENITOURINARY: No bladder habit changes. NEUROLOGIC: No changes in vision. Denies any syncope or blurry vision. PHYSICAL EXAMINATION: VITAL SIGNS: Temperature 97.6, pulse 86, blood pressure 202/100, respirations 18-20, sats 97% on room air. GENERAL: She is a well-developed, well-nourished female, not in acute distress. She is awake, in no apparent distress. HEAD AND NECK: Normocephalic, atraumatic. Pupils reactive to light. Extraocular movements are intact. Oropharynx moist and clear. CARDIAC: Regular rate and rhythm with distant sounds. LUNGS: Clear to auscultation bilaterally. ABDOMEN: Soft, supple, nontender, nondistended, normoactive bowel sounds. EXTREMITIES: There is trace edema on the lower extremities. LABORATORY DATA: CBC was essentially within normal limits. Sodium 134, chloride 95, creatinine 4.4 and glucose 256. BNP 133. DIAGNOSTICS: Chest x-ray shows chronic lung changes with left basal segmental atelectasis versus scarring. No focal consolidation or evidence of CHF. IMPRESSION: 1. End-stage renal disease with hemodialysis, but with no current access. 2. Pulled Regis catheter. 3. Recent AV shunt. 4. Insulin-dependent diabetes. 5. Essential hypertension, out of control. 6. History of gout. 7. History of schizophrenia. 8. History of depression and anxiety. 9. History of noncompliance. PLAN: The patient has been admitted to the tele red for further management and care. I have contacted Dr. Hurtado who will replace the pulled Regis with a new Regis catheter. As soon as the Regis catheter replaced, the patient will be dialyzed as scheduled. I have contacted Dr. Baker for hemodialysis management. In the interim, the patient will be continued with other home meds as scheduled. JOB# [id number] VI
[2018-02-11] MEDS: INSULIN ASPART SLIDING SCALE 100 UNITS/ML UNIT SUBQ SCH ×3 (12:52→22:26)
[2018-02-11] MEDS: Insulin Detemir 100 units/mL 10mL Vial SUBQ SCH (12:52)
--- NOTE | 2018-02-11 13:01 | Diagnostic Imaging Report ---
Portable chest x-ray HISTORY: Shortness of breath, vascular catheter placement Compared with prior exam of February 10, 2018, a left-sided vascular catheter has been inserted. The tip is in the region of the superior vena cava. No focal pulmonary processes. No pneumothorax. IMPRESSION: 1. Vascular catheter placement as noted above 2. No focal pulmonary processes
--- NOTE | 2018-02-11 13:02 | Diagnostic Imaging Report ---
Vascular catheter placement (intraoperative fluoroscopic images and services) HISTORY: Vascular catheter placement 1 minute 16 seconds fluoroscopy time utilized.
--- NOTE | 2018-02-11 14:11 | Diagnostic Imaging Report ---
Bilateral upper extremity Doppler venous ultrasound exam HISTORY: Vascular stent patency, occlusion Sonographic sector images were obtained in and about the regions of the venous systems of the arms. Associated Doppler data was obtained. The exam demonstrates patency of the right and left internal jugular, subclavian, axillary, brachial, basilic, cephalic veins. No intraluminal thrombus. Normal compressibility and augmentation responses. Findings consistent with avascular graft noted within the soft tissues of the right arm. Intraluminal vascular flow is seen. Findings consistent with a graft traversing the soft tissues of the left upper arm. No appreciable intraluminal flow is seen. IMPRESSION: 1. Findings consistent with occlusion of what appears to be vascular shunt within the left arm. 2. Patency of the venous systems of both arms. Patency of a vascular shunt in the right arm.
--- NOTE | 2018-02-11 15:02 | Consultation ---
DATE OF CONSULTATION: 02/11/2018 ATTENDING: Payal Shrestha M.D. REASON FOR CONSULTATION: Worsening kidney function, electrolyte imbalance, and fluid management. HISTORY OF PRESENT ILLNESS: This is a 63-year-old female with past medical history of end-stage renal disease, on hemodialysis, who accidentally pulled out her Regis catheter. A few hours prior to admission, the patient accidentally pulled out her Regis catheter. Thus, she missed her dialysis schedule. She was then brought to the Emergency Room. PAST MEDICAL HISTORY: 1. End-stage renal disease, on hemodialysis. 2. Type 2 diabetes mellitus. 3. Major depression/anxiety. 4. Essential hypertension. 5. Chronic atrial fibrillation. 6. History of congestive heart failure. 7. Anemia of chronic disease. 8. Schizophrenia. 9. Coronary artery disease. PAST SURGICAL HISTORY: Status post creation of right AV fistula. CURRENT MEDICATIONS: She is currently on acetaminophen, Zyloprim, Xanax, aspirin, clonidine, citalopram, folic acid, lorazepam, metoprolol. ALLERGIES: No known drug allergies. SOCIAL HISTORY: No history of alcohol or tobacco use. FAMILY HISTORY: Unknown at the present time. REVIEW OF SYSTEMS: She does have occasional weakness. Appetite had been fair. No fever or chills. HEENT: No mention of headaches, no dizziness. CARDIORESPIRATORY: No chest pain, palpitations, diaphoresis, cough, nor shortness of breath. She does have a history of chronic atrial fibrillation, CHF, coronary artery disease. ENDOCRINE: History of diabetes. No dyslipidemia, nor hypothyroidism. MUSCULOSKELETAL: Multiple joint arthralgias. GENITOURINARY: History of kidney failure, now on hemodialysis. ENDOCRINE: Sodium. HEMATOLOGIC: Anemia of chronic disease. NEUROPSYCH: History of schizophrenia, anxiety, as well as depression. PHYSICAL EXAMINATION: GENERAL: The patient is awake, verbal, confused, but not in any distress. VITAL SIGNS: Blood pressure is 154/78, pulse 87, temperature 97.8 degrees. SKIN: Good turgor, warm, no rash, no jaundice appreciated. HEENT: Head: Normocephalic, atraumatic. Eyes: Extraocular muscles intact. Pupils equal, round, reactive to light and accommodates. Anicteric sclerae. Pale conjunctivae. Nose, midline nasal septum. Mouth, moist mucosa, adequate dentition. NECK: Supple, no adenopathy, no thyromegaly, no bruits. Trachea palpated in the midline. CHEST AND CARDIOVASCULAR: S1, S2. No rub, murmur, or gallop appreciated. Point of maximal impulse, fifth intercostal space, left midclavicular line. No abdominal or femoral bruits appreciated. LUNGS: Equal expansion. No use of accessory muscles. No supraclavicular retractions. Decreased breath sounds, clear to auscultation without any wheeze, presence of left subclavian Perm-A-Cath. BREASTS: Symmetrical without any discharge. ABDOMEN: Globular, soft, positive for bowel sounds. No bruits either diastolic or systolic. RECTAL: The patient refused. GENITOURINARY: Normal appearing female genitalia. MUSCULOSKELETAL: No effusions present in her joints with adequate range of motion. EXTREMITIES: No evidence of edema, cyanosis, or clubbing with palpable femoral, but unable to fully appreciate popliteal and dorsalis pedis pulses. NEUROLOGIC: The patient is awake; however, periods of confusion, unable to follow my neuro commands, so I was not able to pursue further my neuro exam. LABORATORY DATA: Did reveal sodium is 132, potassium 4.1, chloride 93, bicarbonate 27, BUN 36, creatinine 5.2, glucose 241. BNP is 133, albumin 4.1. IMPRESSION: 1. End-stage renal disease, on hemodialysis. 2. Accidental removal of Regis cath status post Perm-A-Cath placement. 3. Type 2 diabetes mellitus with chronic kidney disease. 4. Essential hypertension with chronic kidney disease. 5. Major depression/anxiety. 6. Chronic atrial fibrillation. 7. History of congestive heart failure. 8. Anemia of chronic disease. 9. History of schizophrenia. 10. Coronary artery disease. PLAN: 1. Agree with placement of Perm-A-Cath. 2. Hemodialysis as scheduled. JOB# [id number]
[2018-02-11] MEDS ORDERED: INSULIN ASPART SLIDING SCALE 100 UNITS/ML UNIT SUBQ SCH (16:30)
[2018-02-12] MEDS ORDERED: Heparin Sod 1,000 Units/mL 10ml HD SCH
[2018-02-12 02:03] VITALS: BP 202/100
[2018-02-12] MEDS: INSULIN ASPART SLIDING SCALE 100 UNITS/ML UNIT SUBQ SCH ×4 (06:47→20:05)
[2018-02-12] MEDS: Heparin Sodium 1,000 Units/mL Vial HD SCH ×2 (06:47→11:52)
[2018-02-12 07:55] LABS: % BASOPHILS 0.9 % (0.0-2.0); % EOSINOPHILS 7.9 % (0.0-5.0); % LYMPHOCYTES 25.1 % (20.0-50.0); % MONOCYTES 10.4 % (2.0-10.0); % NEUTROPHILS 55.7 % (40.0-80.0); BASOPHILE ABSOLUTE 0.1 Th/cumm (0-0.2); EOSINOPHILE ABSOLUTE 0.6 Th/cmm (0.1-0.4); HEMATOCRIT 35.9 % (41.0-60); LYMPHOCYTE ABSOLUTE 2.1 Th/cmm (1.5-3.0); MEAN CELL VOLUME 89.6 fl (81-100); MEAN CORPUSCULAR HEMOGLOBIN 29.9 pg (27.0-31.0); MEAN CORPUSCULAR HGB CONC 33.4 pg (28.0-36.0); MEAN PLATELET VOLUME 8.1 fl; MONOCYTE ABSOLUTE 0.9 Th/cmm (0.3-1.0); NEUTROPHILE ABSOLUTE 4.5 Th/cmm (1.8-8.0); PLATELET COUNT 223 Th/cmm (150-400); RED CELL DISTRIBUTION WIDTH 14.1 % (11.5-20.0); WHITE BLOOD COUNT 8.2 Th/cmm (4.8-10.8)
[2018-02-12 08:14] LABS: ANION GAP 13.4 (7.0-16.0); CARBON DIOXIDE 23.5 mEq/L (21.0-31.0); GFR AFRICAN-AMERICAN 14.1 ml/min (>90); GFR NON AFRICAN-AMERICAN 11.6 ml/min; POTASSIUM SERUM 3.9 mEq/L (3.5-5.1)
[2018-02-12 08:32] LABS: CREATININE - SERUM 4.1 mg/dL (0.6-1.2)
[2018-02-12] MEDS: Escitalopram Oxalate 5 mg Tab PO SCH (09:43)
[2018-02-12] MEDS: Insulin Detemir 100 units/mL 10mL Vial SUBQ SCH (09:47)
[2018-02-12] MEDS: Vitamin B Complex w/Vitamin C Tab PO SCH (09:58)
--- NOTE | 2018-02-12 11:34 | General Progress Note ---
Subjective - Review of Systems Service Date: 02/12/18 Subjective: feels fine Objective - Results Result Diagrams: 02/12/18 07:30 02/12/18 07:30 Recent Labs: Laboratory Last Values WBC 8.2 Th/cmm (4.8-10.8) 02/12/18 07:30 RBC 4.00 Mil/cmm (3.80-5.10) 02/12/18 07:30 Hgb 12.0 gm/dL (12-16) 02/12/18 07:30 Hct 35.9 % (41.0-60) L 02/12/18 07:30 MCV 89.6 fl (81-100) 02/12/18 07:30 MCH 29.9 pg (27.0-31.0) 02/12/18 07:30 MCHC Differential 33.4 pg (28.0-36.0) 02/12/18 07:30 RDW 14.1 % (11.5-20.0) 02/12/18 07:30 Plt Count 223 Th/cmm (150-400) 02/12/18 07:30 MPV 8.1 fl 02/12/18 07:30 Neutrophils % 55.7 % (40.0-80.0) 02/12/18 07:30 Lymphocytes % 25.1 % (20.0-50.0) 02/12/18 07:30 Monocytes % 10.4 % (2.0-10.0) H 02/12/18 07:30 Eosinophils % 7.9 % (0.0-5.0) H 02/12/18 07:30 Basophils % 0.9 % (0.0-2.0) 02/12/18 07:30 PT 9.3 SECONDS (9.5-11.5) L 02/11/18 07:11 INR 0.88 (0.5-1.4) 02/11/18 07:11 PTT (Actin FS) 22.0 SECONDS (26.0-38.0) L 02/10/18 11:05 Sodium 136 mEq/L (136-145) 02/12/18 07:30 Potassium 3.9 mEq/L (3.5-5.1) 02/12/18 07:30 Chloride 103 mEq/L (98-107) 02/12/18 07:30 Carbon Dioxide 23.5 mEq/L (21.0-31.0) 02/12/18 07:30 Anion Gap 13.4 (7.0-16.0) 02/12/18 07:30 BUN 20 mg/dL (7-25) 02/12/18 07:30 Creatinine 4.1 mg/dL (0.6-1.2) H* 02/12/18 07:30 Est GFR ( Amer) 14.1 ml/min (>90) 02/12/18 07:30 Est GFR (Non-Af Amer) 11.6 ml/min 02/12/18 07:30 BUN/Creatinine Ratio 4.9 02/12/18 07:30 Glucose 155 mg/dL (70-105) H D 02/12/18 07:30 POC Glucose 232 MG/DL (70 - 105) H 02/12/18 09:42 Calcium 9.0 mg/dL (8.6-10.3) 02/12/18 07:30 Phosphorus 4.0 mg/dL (2.5-5.0) 02/12/18 07:30 Magnesium 2.0 mg/dL (1.9-2.7) 02/11/18 10:10 Total Bilirubin 0.5 mg/dL (0.3-1.0) 02/11/18 10:10 AST 20 U/L (13-39) 02/11/18 10:10 ALT 4 U/L (7-52) L 02/11/18 10:10 Alkaline Phosphatase 87 U/L (34-104) 02/11/18 10:10 B-Natriuretic Peptide 133.0 pg/mL (5.0-100.0) H 02/10/18 11:05 Total Protein 6.9 gm/dL (6.0-8.3) 02/11/18 10:10 Albumin 4.1 gm/dL (3.7-5.3) 02/11/18 10:10 Globulin 2.8 gm/dL 02/11/18 10:10 Albumin/Globulin Ratio 1.5 (1.0-1.8) 02/11/18 10:10 - Physical Exam Vitals and I&O: Vital Signs Temp 98 F 02/12/18 04:00 Pulse 99 10/13/18 09:43 Resp 17 02/12/18 11:18 BP 134/72 02/12/18 09:43 Pulse Ox 97 02/12/18 04:00 Intake & Output 02/11/18 02/12/18 02/12/18 18:59 06:59 18:59 Intake Total 100 200 Balance 100 200 Weight (lbs) 76.204 kg 76.204 kg Intake: Oral 100 200 Other: # Voids 0 # Bowel Movements 0 Weight Source Bedscale Bedscale Active Medications: Current Medications Acetaminophen (Tylenol) 650 mg PO Q4HR PRN PRN Reason: Pain (Mild) Stop: 04/12/18 10:09 Acetaminophen/Hydrocodone Bitart (Neon 5mg/325mg) 1 tab PO Q6H PRN PRN Reason: Pain (Severe) Stop: 04/12/18 10:09 Allopurinol (Zyloprim) 100 mg PO TID [facility] Stop: 04/12/18 13:59 Last Admin: 02/12/18 09:43 Dose: 100 mg Alprazolam (Xanax) 1.5 mg PO TuThSa PRN PRN Reason: Anxiety Stop: 04/12/18 10:09 Aspirin (Ecotrin) 81 mg PO DAILY [facility] Stop: 04/12/18 10:14 Last Admin: 02/12/18 09:43 Dose: 81 mg Escitalopram Oxalate (Lexapro) 5 mg PO DAILY [facility]; Protocol Stop: 04/12/18 10:14 Last Admin: 02/12/18 09:43 Dose: 5 mg Folic Acid (Folate) 1 mg PO DAILY [facility] Stop: 04/12/18 10:14 Last Admin: 02/12/18 09:43 Dose: 1 mg Heparin Sodium (Porcine) (Heparin) 5,000 units SUBQ Q12H [facility] Stop: 04/12/18 20:59 Last Admin: 02/12/18 09:34 Dose: 5,000 units Heparin Sodium (Porcine) (Heparin) 3,100 units HD UD [facility] Stop: 02/13/18 00:00 Last Admin: 02/12/18 06:47 Dose: Not Given Insulin Aspart (Novolog Insulin Sliding Scale) 0 units SUBQ ACHS [facility]; Protocol Stop: 04/12/18 11:29 Last Admin: 02/12/18 06:47 Dose: Not Given Insulin Detemir (Levemir Insulin) 24 units SUBQ QAM [facility]; Protocol Stop: 04/12/18 10:59 Last Admin: 02/12/18 09:47 Dose: 24 units Metoprolol Tartrate (Lopressor) 50 mg PO BID [facility] Stop: 04/12/18 10:29 Last Admin: 02/12/18 09:43 Dose: 50 mg Miscellaneous (Vte Chemical Prophylaxis Screen/ Admission) 1 ea [facility] PRN PRN PRN Reason: PROTOCOL Stop: 04/12/18 07:55 Miscellaneous (Clinical Monitoring) 1 ea MC DAILY PRN PRN Reason: RENAL Stop: 04/12/18 11:42 Ondansetron HCl (Zofran Odt) 4 mg PO Q12HR PRN PRN Reason: Nausea / Vomiting Stop: 04/12/18 10:14 Vitamin B Complex/Vit C/Folic Acid (Vitamin B Complex W/Vitamin C) 1 tab PO DAILY [facility] Stop: 04/12/18 10:29 Last Admin: 02/12/18 09:58 Dose: 1 tab General: Alert, No acute distress HEENT: Atraumatic, PERRLA, Mucous membr. moist/pink Neck: Supple, JVD Cardiovascular: Regular rate, Normal S1, Normal S2 Lungs: Clear to auscultation Abdomen: Bowel sounds, Soft Extremities: no Edema Neurological: Sensation intact Skin: no Rash Psych/Mental Status: Mood NL - Procedures Procedures: Procedures Procedure Code Date PERFORMANCE OF URINARY FILTRATION, <6 HRS/DAY [id number] 09/13/17 Assessment/Plan - Assessment Assessment: ESRD of HD T2DM Ess Htn Major Depression/Anxiety CHF Anemia of CD Schizo CAD - Plan Plan: Lab - Result Diagrams 02/12/18 07:30 02/12/18 07:30 Current Medications Acetaminophen (Tylenol) 650 mg PO Q4HR PRN PRN Reason: Pain (Mild) Stop: 04/12/18 10:09 Acetaminophen/Hydrocodone Bitart (Neon 5mg/325mg) 1 tab PO Q6H PRN PRN Reason: Pain (Severe) Stop: 04/12/18 10:09 Allopurinol (Zyloprim) 100 mg PO TID [facility] Stop: 04/12/18 13:59 Last Admin: 02/12/18 09:43 Dose: 100 mg Alprazolam (Xanax) 1.5 mg PO TuThSa PRN PRN Reason: Anxiety Stop: 12/11/18 10:09 Aspirin (Ecotrin) 81 mg PO DAILY [facility] Stop: 04/12/18 10:14 Last Admin: 02/12/18 09:43 Dose: 81 mg Escitalopram Oxalate (Lexapro) 5 mg PO DAILY [facility]; Protocol Stop: 04/12/18 10:14 Last Admin: 02/12/18 09:43 Dose: 5 mg Folic Acid (Folate) 1 mg PO DAILY [facility] Stop: 04/12/18 10:14 Last Admin: 02/12/18 09:43 Dose: 1 mg Heparin Sodium (Porcine) (Heparin) 5,000 units SUBQ Q12H [facility] Stop: 04/12/18 20:59 Last Admin: 02/12/18 09:34 Dose: 5,000 units Heparin Sodium (Porcine) (Heparin) 3,100 units HD UD [facility] Stop: 02/13/18 00:00 Last Admin: 02/12/18 06:47 Dose: Not Given Insulin Aspart (Novolog Insulin Sliding Scale) 0 units SUBQ ACHS [facility]; Protocol Stop: 04/12/18 11:29 Last Admin: 02/12/18 06:47 Dose: Not Given Insulin Detemir (Levemir Insulin) 24 units SUBQ QAM [facility]; Protocol Stop: 04/12/18 10:59 Last Admin: 02/12/18 09:47 Dose: 24 units Metoprolol Tartrate (Lopressor) 50 mg PO BID [facility] Stop: 04/12/18 10:29 Last Admin: 02/12/18 09:43 Dose: 50 mg Miscellaneous (Vte Chemical Prophylaxis Screen/ Admission) 1 ea [facility] PRN PRN PRN Reason: PROTOCOL Stop: 04/12/18 07:55 Miscellaneous (Clinical Monitoring) 1 ea [facility] DAILY PRN PRN Reason: RENAL Stop: 04/12/18 11:42 Ondansetron HCl (Zofran Odt) 4 mg PO Q12HR PRN PRN Reason: Nausea / Vomiting Stop: 04/12/18 10:14 Vitamin B Complex/Vit C/Folic Acid (Vitamin B Complex W/Vitamin C) 1 tab PO DAILY [facility] Stop: 04/12/18 10:29 Last Admin: 02/12/18 09:58 Dose: 1 tab Lab - Result Diagrams 02/12/18 07:30 02/12/18 07:30 pt. was dialyzed yesterday & tolerated it well schedule for HD in am Nutritional Asmnt/Malnutr-PDOC - Dietary Evaluation Malnutrition Findings (Please click <Entered> for more info): Nutritional Asmnt/Malnutrition Start: 02/11/18 17: 22 Text: Status: Complete Freq: Protocol: Document 02/11/18 17:23 JOSHUA (Rec: 02/11/18 17:49 [email or web address]) Nutritional Asmnt/Malnutrition Patient General Information Nutritional Screening High Risk Consult Diagnosis ESRD, non available hemodialysis catheter Pertinent Medical Hx/Surgical Hx HTN, DM, CHF, essential HTN, chronic anemia, hyperlipidemia , CAD, gout, schizophrenia, depression, hypothyroidism, glaucoma, major depressive and anxiety disorder, muscle weakness Subjective Information Received diet consult for ESRD . Pt not in room at time of visit, sent to OR for catheter insertion. Spoke to RN regarding most appropriate diet for pt; RN states will talk to MD tomorrow. Current Diet Order/ Nutrition Support regular 1500 lina diet Pertinent Medications folate, heparin, novolog, levemir, zofran, Vit B complex w/ Vit C Pertinent Labs 02/11: glucose 241, Na 132, Cl 93, Cr 5.2, POC 244, BUN 36 02/10: glucose 256, Na 134, Cl 95, Cr 4.4, BUN 25 Nutritional Hx/Data Height 1.57 m Height (Calculated Centimeters) 157.5 Current Weight (lbs) 76.43 kg Weight (Calculated Kilograms) 76.4 Weight (Calculated Grams) 39891.3 [place] Body Weight 110 Body Mass Index (BMI) 30.8 Weight Status Obese GI Symptoms GI Symptoms None Difficult in: None Food Allergies No Skin Integrity/Comment: wayne catheter site to right superior chest, AV shunt to both upper arms, piero 17 Estimated Nutritional Goals BEE in Kcals: Adj wt of IBW Calories/Kcals/Kg 30-35 (based on adj wt 56.6 kg ) Kcals Calculated 7188-5169 Protein: Adj wt of IBW Protein g/k.2-1.5 (based on adj wt 56.6 kg) Protein Calculated 68-85 Fluid: ml per MD Nutritional Problem 2. Problem Problem inadequate energy intake Etiology increased nutritional needs for HD Signs/Symptoms: current 1500kcal diet not meeting 100% nutritional needs 1. Problem Problem Altered nutrition related lab values Etiology ESRD , hx of DM Signs/Symptoms: Cr 5.2, BUN 36, glucose 256- 241, POC 197-244 Malnutrition Alert Is there a minimum of two criteria No selected? Query Text:Check all the applicable criteria. A minimum of two criteria are recommended for diagnosis of either severe or non-severe malnutrition. Malnutrition Related to Morbid Obesity Malnutrition related to morbid obesity No Intervention/Recommendation Comments 1. Recommend to add renal diet d/t ESRD and altered BUN and Cr. 2. Consider modifying diet from 1500 to 1800 lina diet d/t increased nutritional needs for HD. RN notified. 3. Supplement with Nepro BID for extra kcals and protein intake 4. Monitor PO intake, wt, labs and skin integrity 5. F/U as high risk in 2-3 days, 02/13-02/14 Expected Outcomes/Goals Expected Outcomes/Goals 1. PO intake to meet at least 75% of nutritional needs 2. Wt stability, skin to remain intact, and nutrition related labs to approach normal limits Reviewed by Stephanie Skinner RD
--- NOTE | 2018-02-12 12:30 | Operative Report ---
DATE OF SURGERY: 02/11/2018 PREOPERATIVE DIAGNOSES: 1. Acute renal failure. 2. Diabetes mellitus. 3. Hypertension. 4. Congestive heart failure. POSTOPERATIVE DIAGNOSES: 1. Acute renal failure. 2. Diabetes mellitus. 3. Hypertension. 4. Congestive heart failure. OPERATION DONE: Placement of Perm-A-Cath, left subclavian vein under ultrasound and fluoroscopy. SURGEON: Marisa Hurtado M.D. ANESTHESIA: MAC. ANESTHESIOLOGIST: Evelyn Delacruz M.D. ESTIMATED BLOOD LOSS: 10 mL. INDICATION FOR SURGERY: The [facility] and the patient was sent in for replacement of catheter. Informed consent discussed with the daughter, who has power of managing attorney. Risk and complications also discussed. DESCRIPTION OF PROCEDURE: The patient was given IV sedation. The left chest was prepped with ChloraPrep and draped in appropriate manner. 1% lidocaine was used to infiltrate the area identified on ultrasound. An incision was made and size 18 needle was used over the vein. Under fluoroscopy, the guide was inserted and was found to follow the course into the inferior vena cava. The dilator and then the introducer was placed over the wire, which was retained and the 28 cm Medcomp catheter was inserted through this. This was done under fluoroscopy. There was good placement in the inferior vena cava of the tip of the catheter. Guidewire was withdrawn and the catheter was sutured to under the skin to prevent dislodgement. The patient tolerated the procedure. JOB# [id number]
[2018-02-13 06:30] LABS: ANION GAP 14.2 (7.0-16.0); CALCIUM SERUM 8.6 mg/dL (8.6-10.3); CARBON DIOXIDE 23.7 mEq/L (21.0-31.0); GFR AFRICAN-AMERICAN 10.5 ml/min (>90); GFR NON AFRICAN-AMERICAN 8.7 ml/min; POTASSIUM SERUM 3.9 mEq/L (3.5-5.1)
[2018-02-13] MEDS: INSULIN ASPART SLIDING SCALE 100 UNITS/ML UNIT SUBQ SCH ×2 (06:34→12:44)
[2018-02-13 06:40] LABS: CREATININE - SERUM 5.3 mg/dL (0.6-1.2)
[2018-02-13] MEDS: Vitamin B Complex w/Vitamin C Tab PO SCH (08:51)
[2018-02-13] MEDS: Escitalopram Oxalate 5 mg Tab PO SCH (08:51)
[2018-02-13] MEDS: Insulin Detemir 100 units/mL 10mL Vial SUBQ SCH (09:08)
[2018-02-18 23:48] LABS: TOTAL PROTEIN,SERUM 6.9 gm/dL (6.0-8.3)
--- NOTE | 2018-02-21 10:27 | Discharge Summary ---
DATE OF DISCHARGE: 02/13/2018 ADMITTING DIAGNOSES: Pulled Regis cath, end-stage renal disease with no HD access. SECONDARY DIAGNOSES: Essential hypertension, chronic anemia, hyperlipidemia, coronary artery disease, history of congestive heart failure, history of schizophrenia, depression, hypothyroidism, insulin-dependent diabetes. DISCHARGE DIAGNOSES: Pulled Regis cath status post placement of Perm-A-Cath on the left subclavian vein under ultrasound and fluoroscopy done by Dr. Hurtado. CONSULTS: Dr. Hurtado, General Surgery and Dr. Baker, Nephrology. MAJOR PROCEDURES: Please refer to the above. 1. There was also bilateral upper extremity venous ultrasound showing findings consistent with occlusion of what appears to be vascular shunt within the left arm. 2. Patency of the venous system in both arms. BRIEF HOSPITAL COURSE: A 62-year-old female that was transferred from [facility] secondary to a pulled Regis cath and missed hemodialysis. She was admitted to the [facility] and was kept on her regular medications. Surgical as well as Nephrology consults were ordered and the patient underwent the above-mentioned procedure without any complications. She remained clinically stable throughout her hospital stay. DISCHARGE MEDICATIONS: Tylenol 650 q. 4 p.r.n. for pain, allopurinol 100 t.i.d., Xanax 1.5 every day p.r.n. for anxiety, Pro-Stat 30 mL every day, aspirin 81 every day, Lexapro 5 mg daily, folic acid 1 mg daily, Ingraham 5/325 q. 6 p.r.n. for severe pain, insulin sliding scale, Levemir insulin 24 units in the morning, metoprolol 50 b.i.d., Zofran 4 mg q. 12 p.r.n. for nausea, vomiting, vitamin B with folic acid 1 tab every day. DISPOSITION: The patient was discharged back to [facility]. [facility]# [id number] VI
== END 2018-02-13 13:58 | DRG 291 ==
LOC: ER 10:43 → MSI 17:40
PROVIDERS: ADMIT Internal Medicine; ATTEND Internal Medicine
PROC: 02HV33Z Insertion of Infusion Device into Superior Vena Cava, Percutaneous Approach (ICD-10-PCS; principal; 2018-02-11)
PROC: B5181ZA Fluoroscopy of Superior Vena Cava using Low Osmolar Contrast, Guidance (ICD-10-PCS; 2018-02-11)
PROC: 5A1D70Z Performance of Urinary Filtration, Intermittent, Less than 6 Hours Per Day (ICD-10-PCS; 2018-02-13)
DX: I13.2 Hypertensive heart and chronic kidney disease with heart failure and with stage 5 chronic kidney disease, or end stage renal disease (principal); N18.6 End stage renal disease; N17.9 Acute kidney failure, unspecified; Z99.2 Dependence on renal dialysis; I50.9 Heart failure, unspecified; E11.22 Type 2 diabetes mellitus with diabetic chronic kidney disease; F32.9 Major depressive disorder, single episode, unspecified; E78.5 Hyperlipidemia, unspecified; I25.10 Atherosclerotic heart disease of native coronary artery without angina pectoris; M10.9 Gout, unspecified; F20.9 Schizophrenia, unspecified; E03.9 Hypothyroidism, unspecified; F41.9 Anxiety disorder, unspecified; H40.9 Unspecified glaucoma; I48.2 Chronic atrial fibrillation; D63.8 Anemia in other chronic diseases classified elsewhere; Z79.4 Long term (current) use of insulin
CPT/HCPCS: 36415-UA; 71045-TC; 76000-TC; 80048-TC; 80053-TC; 82948-90; 83036-90; 83735-TC; 83880-TC; 84100-TC; 85025-TC; 85610-TC; 85730-TC; 90937; 93005; 93970-TC-50; J1644; J1815; J2060; J2250; J3010; J7030; V2790; Z7610